=== PATIENT | female | born 1970 | race Two or more races ===

== ENCOUNTER 2020-03-09 16:56 | Emergency (ER) | payer MEDICAID, SELFPAY ==
--- NOTE | 2020-03-09 17:32 | XR_ITS ---
EXAMINATION: 1. RADIOGRAPHS LEFT SHOULDER 2. RADIOGRAPHS LEFT WRIST 3. RADIOGRAPHS RIGHT KNEE CLINICAL INFORMATION: Pain after fall COMPARISON: Left shoulder x-rays 07/05/2018 TECHNIQUE: 3 views of the left shoulder, 4 views of the left wrist and 4 views of the right knee were obtained. FINDINGS: Left shoulder: Visualized portion of the proximal left humerus demonstrate no fracture. Humeral head demonstrates good articulation with the glenoid fossa. Minimal hypertrophic changes of the left acromioclavicular joint. Left wrist: Visualized portion of the distal radius and ulna demonstrate no fracture. Carpal rows are well aligned. No carpal bone fracture. No focal soft tissue swelling of the left wrist. Visualized metacarpals demonstrate no fracture. Right knee: No fracture or dislocation of the right knee. Joint spaces are well-maintained. Ill-defined sclerotic density within the distal femur is nonspecific but most suggestive of a bone island. No suprapatellar joint effusion. Mild soft tissue swelling of the anterior knee. XR/XR knee RT 4V IMPRESSION: 1. Mild degenerative changes of the left shoulder without fracture or dislocation. 2. Unremarkable radiographs of the left wrist. 3. No fracture, dislocation or significant degenerative changes of the right knee.
--- NOTE | 2020-03-09 17:32 | XR_ITS ---
EXAMINATION: 1. RADIOGRAPHS LEFT SHOULDER 2. RADIOGRAPHS LEFT WRIST 3. RADIOGRAPHS RIGHT KNEE CLINICAL INFORMATION: Pain after fall COMPARISON: Left shoulder x-rays 07/05/2018 TECHNIQUE: 3 views of the left shoulder, 4 views of the left wrist and 4 views of the right knee were obtained. FINDINGS: Left shoulder: Visualized portion of the proximal left humerus demonstrate no fracture. Humeral head demonstrates good articulation with the glenoid fossa. Minimal hypertrophic changes of the left acromioclavicular joint. Left wrist: Visualized portion of the distal radius and ulna demonstrate no fracture. Carpal rows are well aligned. No carpal bone fracture. No focal soft tissue swelling of the left wrist. Visualized metacarpals demonstrate no fracture. Right knee: No fracture or dislocation of the right knee. Joint spaces are well-maintained. Ill-defined sclerotic density within the distal femur is nonspecific but most suggestive of a bone island. No suprapatellar joint effusion. Mild soft tissue swelling of the anterior knee. XR/XR shoulder LT min 2V IMPRESSION: 1. Mild degenerative changes of the left shoulder without fracture or dislocation. 2. Unremarkable radiographs of the left wrist. 3. No fracture, dislocation or significant degenerative changes of the right knee.
--- NOTE | 2020-03-09 17:32 | XR_ITS ---
EXAMINATION: 1. RADIOGRAPHS LEFT SHOULDER 2. RADIOGRAPHS LEFT WRIST 3. RADIOGRAPHS RIGHT KNEE CLINICAL INFORMATION: Pain after fall COMPARISON: Left shoulder x-rays 07/05/2018 TECHNIQUE: 3 views of the left shoulder, 4 views of the left wrist and 4 views of the right knee were obtained. FINDINGS: Left shoulder: Visualized portion of the proximal left humerus demonstrate no fracture. Humeral head demonstrates good articulation with the glenoid fossa. Minimal hypertrophic changes of the left acromioclavicular joint. Left wrist: Visualized portion of the distal radius and ulna demonstrate no fracture. Carpal rows are well aligned. No carpal bone fracture. No focal soft tissue swelling of the left wrist. Visualized metacarpals demonstrate no fracture. Right knee: No fracture or dislocation of the right knee. Joint spaces are well-maintained. Ill-defined sclerotic density within the distal femur is nonspecific but most suggestive of a bone island. No suprapatellar joint effusion. Mild soft tissue swelling of the anterior knee. XR/XR wrist LT min 3V IMPRESSION: 1. Mild degenerative changes of the left shoulder without fracture or dislocation. 2. Unremarkable radiographs of the left wrist. 3. No fracture, dislocation or significant degenerative changes of the right knee.
[2020-03-09 17:34] VITALS: BP 130/74; PULSE 95; RESP 18; TEMP 36.8; O2SAT 98; BMI 36.2
--- NOTE | 2020-03-09 17:46 | ED.FALL ---
HPI - Fall General Chief Complaint: Fall Stated Complaint: knee pain Time Seen by Provider: 03/09/20 17:10 Source: patient History of Present Illness HPI Narrative: 49-year-old female presenting to ED complaining of right knee, left shoulder, and left wrist pain s/p mechanical fall on Sunday night. Reports tripped going up the stairs, denies symptoms prior to fall including CP, lightheadedness/dizziness. Denies head strike or LOC. Has been ambulating with pain since incident. Denies numbness, tingling, weakness complaint: fall Related Data Allergies Allergy/AdvReac Type Severity Reaction Status Date / Time No Known Allergies Allergy Verified 03/09/20 17:33 [No Known Allergies*] Review of Systems Review of Systems: Constitutional: No Weight loss, No Fever, No Chills Cardiovascular: No Chest Pain, No SOB Respiratory: No Cough Musculoskeletal: + joint pain, No Myalgias, + Joint Swelling Skin: No Skin Lesions, No rash Neuro: No Weakness, No Numbness, No Paresthesias, no lightheadedness/dizziness Yes all other systems are reviewed and are negative FOR[facility]LY [facility] Past Medical History Attestation statement: The following information was validated with the patient. Surgical History (Updated 03/09/20 @ 17:36 by Munira Botello) History of cholecystectomy Social History Social History Advance Directives: No Advance Directives Information Provided: Yes Physical Exam Vital Signs: Vital Signs: Vital Signs Temp Pulse Resp BP Pulse Ox 03/09/20 17:34 98.2 F 95 18 130/74 98 Body Mass Index 36.2 Const: General: cooperative and healthy appearing Orientation/consciousness: patient oriented x3 Limitations: no limitations HENMT: Head: Yes normal to inspection Ears: hearing grossly normal bilaterally General nose exam: Normal external nose present Face and sinus: Yes normal facial exam Eyes: General: appearance normal, both eyes and all related structures EOM: EOMs intact bilaterally Neck: Neck: Yes normal visual inspection Resp: Effort & Inspection: normal respiratory effort Cardio: Peripheral pulses: Peripheral pulses 2+ throughout Skin: Rashes: no rashes Wounds: no wounds Neuro: General: patient oriented x3 Gait exam (Neuro): Normal gait present Extrem: Other: + right knee with swelling and ecchymosis. +ttp. FROM/NV intact + left shoulder & left wrist with ttp. No snuffbox tenderness. Mild swelling to dorsal aspect of wrist. FROM/NV intact Course Course Course Narrative: --1800--ED care transfer to EEG TECHNOLOGIST [facility] pending imaging results Discharge Plan Discharge Clinical Impression: Left wrist pain Fall Qualifiers: Encounter type: initial encounter Qualified Code(s): W19.XXXA - Unspecified fall, initial encounter Knee pain Qualifiers: Chronicity: acute Laterality: right Qualified Code(s): M25.561 - Pain in right knee Acute shoulder pain Qualifiers: Laterality: left Qualified Code(s): M25.512 - Pain in left shoulder Patient Disposition: Home, Self-Care
== END 2020-03-09 19:20 | disposition home or self-care (01) ==
LOC: HO.ED 17:56
PROVIDERS: Emergency Provider Internal Medicine
DX: S69.92XA Unspecified injury of left wrist, hand and finger(s), initial encounter (principal); M25.562 Pain in left knee; M25.561 Pain in right knee; M25.512 Pain in left shoulder; W01.0XXA Fall on same level from slipping, tripping and stumbling without subsequent striking against object, initial encounter; Y93.9 Activity, unspecified; Y92.9 Unspecified place or not applicable; Y99.9 Unspecified external cause status
CPT/HCPCS: 73030; 73110; 73564; 99283

== ENCOUNTER → 2020-08-10 10:50 | Outpatient (REF) | payer MEDICAID, SELFPAY ==
--- NOTE | 2020-08-10 11:00 | CA_ITS ---
Acquisition Time: 2020-08-10 11:02:42 Total Exercise Time: 00:06:23 Test Indications: ABN EKG Medications: SEE CHART Protocol: KAVEH Max HR: 173 BPM 101% of Pred: 170 BPM Max BP: 130/080 mmHG Max Work Load: 7.5 METS Exercise stress ECHO using Kaveh protocol, total og 6 min 23 sec. METS 7.50 and TAPHR up to 101%. Pt denies any anginal sx. EKG without arrhythmias, no ischemic changes seen during exercise or in recovery. ECHO images taken at rest and immediately after peak exercise heart rate acheaved. Definity contrast used. Normotensive response to exercise. Test reviewed with Dr. Douglass. Exercise stress echocardiogram reviewed. At rest, there is normal LVEF and wall motion. With peak exercise, there is appropriate augmentation of wall thickening and contractility. There is normal decrease in end-systolic volumes. Overall, this is a normal study. Referred By: Marti Childs Overread By: ELZBIETA DOUGLASS
== END ==
LOC: HO.CARD 10:50
PROVIDERS: Visit Provider Internal Medicine Cardiovascular Disease
DX: R07.89 Other chest pain (principal)
CPT/HCPCS: 93350; Q9957

== ENCOUNTER 2020-11-11 14:23 | Outpatient (REF) | payer MEDICAID, SELFPAY ==
--- NOTE | ~2020-11-11 | MR_ITS ---
MRI OF THE BRAIN WITHOUT IV CONTRAST INDICATION: Worsening headaches waking up from sleep. COMPARISON: None available. TECHNIQUE: Multiplanar multisequence MR imaging of the brain was obtained without IV contrast. FINDINGS: There is no hydrocephalus, extra-axial surface collection, or herniation. There are mild T2 signal within the supratentorial white matter that are nonspecific. The major flow voids at the skull base are preserved. There is no acute infarct on diffusion-weighted imaging. There is no intracranial hemorrhage on the gradient recalled echo acquisition. There is a partially empty sella and there is a right petrous apex cephalocele, findings that can be correlated for clinical signs of intracranial CSF hypertension/pseudotumor cerebri. The cerebellar tonsils are normally positioned. The cerebellum and brainstem are normal. The craniocervical junction is normal. Osseous marrow signal intensity is homogenous. The visualized soft tissues are unremarkable. MR/MR head/brain wo con IMPRESSION: - Nodular prominence of the anterior communicating artery flow void that may reflect volume averaging with the subjacent sphenoid sinus versus an aneurysm that can be further assessed with a MRA of the head. - There is a partially empty sella and there is a right petrous apex cephalocele, findings that can be correlated for clinical signs of intracranial CSF hypertension/pseudotumor cerebri. - There are mild T2 signal within the supratentorial white matter that are nonspecific.
== END 2020-11-11 14:24 | disposition home or self-care (01) ==
LOC: HO.MRI 14:23
PROVIDERS: Visit Provider Internal Medicine
DX: R51.9 Headache, unspecified (principal)
CPT/HCPCS: 70551

== ENCOUNTER 2020-11-25 10:18 | Outpatient (REF) | payer MEDICAID, SELFPAY ==
--- NOTE | ~2020-11-25 | MR_ITS ---
EXAMINATION: MR ANGIOGRAPHY BRAIN WITHOUT CONTRAST CLINICAL INFORMATION: Followup to previous MRI for question of artifact versus ACOM aneurysm. COMPARISON: 11/11/2020 MRI TECHNIQUE: 3-D [id number] MR angiography of the intracranial circulation was done with multiplanar reformatted reconstructions. FINDINGS: The anterior communicating artery is visualized. There is a 1 mm outpouching of flow-related enhancement at the lateral margin of the junction of the right A1 and A2 segments suggesting a tiny aneurysm. Otherwise the A1 and A2 segments are normal in caliber with a normal caliber to the anterior communicating artery. The intracranial internal carotid arteries are normal in caliber and smoothly contoured. The M1 segments and M2 branches are patent and normal in caliber bilaterally with normal arborization of the M2 branches. The intradural vertebral arteries are patent and normal in caliber. Right PICA is visualized and appears normal. A left ICA PICA is visualized and appears normal. Both superior cerebellar arteries and posterior cerebral arteries are normal in caliber and smoothly contoured. No other aneurysms are identified, and there are no high-flow vascular malformations. 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 No other aneurysms are identified, and the remainder of the study is within normal limits.
== END 2020-11-25 10:19 | disposition home or self-care (01) ==
LOC: HO.MRI 10:18
PROVIDERS: Visit Provider Internal Medicine
DX: I67.1 Cerebral aneurysm, nonruptured (principal)
CPT/HCPCS: 70544

== ENCOUNTER 2020-11-30 16:48 | Outpatient (REF) | payer MEDICAID, SELFPAY ==
--- NOTE | ~2020-11-30 | US_ITS ---
EXAMINATION: US VENOUS ULTRASOUND WITH DOPPLER LOWER EXTREMITY, RIGHT CLINICAL INFORMATION: Right lower extremity swelling COMPARISON: None TECHNIQUE: Ultrasound of the deep veins is performed from the hip to the calf with compression sonography and color and pulse Doppler assessment. Spectral analysis with color-flow imaging is performed. FINDINGS: There is normal venous compression and respiratory variation and augmented flow. The visualized common femoral vein, superficial femoral vein, profunda femoral vein, popliteal vein, and the trifurcation region shows no evidence of deep venous thrombosis. There is no significant popliteal fossa cyst. If the patient's symptoms persist, followup ultrasound in 5 days 7 days might be of value to exclude proximal propagation from a non-visualized calf vein. US/US venous duplex LE RT IMPRESSION: No DVT demonstrated in the right lower extremity.
== END 2020-11-30 16:49 | disposition home or self-care (01) ==
LOC: HO.US 16:48
PROVIDERS: PCP Internal Medicine; Visit Provider Internal Medicine
DX: M79.89 Other specified soft tissue disorders (principal)
CPT/HCPCS: 93971

== ENCOUNTER 2021-01-20 09:16 | Day surgery (SDC) | payer MEDICAID, SELFPAY ==
[2021-01-20] VITALS (7 sets, daily range): BP systolic 115–136; BP diastolic 51–67; PULSE 50–60; RESP 16–18; TEMP 36.2–36.4; O2SAT 97–99; BMI 33.9
--- NOTE | ~2021-01-20 | FL_ITS ---
EXAMINATION: XR LUMBAR PUNCTURE CLINICAL INFORMATION: Chronic daily headache COMPARISON: None TECHNIQUE and FINDINGS: Procedure and risks and benefits including bleeding, infection and headache were discussed with the patient and informed consent was obtained. Patient was positioned in the prone position. The back was prepped and draped in usual sterile fashion. Using fluoroscopic guidance and a 22-gauge spinal needle, left-sided interlaminar access to the spinal canal at L3-L4 is obtained. Opening pressure was 15.5 cm of water. 8 mL of clear CSF fluid was removed. Diagnostic specimen was sent as requested by the ordering physician. FLUOROSCOPY TIME: 0.2 min DOSE AREA PRODUCT: 0.9 romero per centimeter squared. Total dose 11 mGy. 1 saved fluoroscopic image. FL/FL guided lumbar puncture LP IMPRESSION: Fluoroscopy-guided lumbar puncture.
[2021-01-20 10:04] LABS: MANUAL DIFF FLAG NO
[2021-01-20 10:09] LABS: Basophils Percent Auto 0.5 % (0-2); Eosinophils Absolute Auto 0.2 X10*3/uL (0.0-0.4); Eosinophils Percent Auto 1.9 % (0-4); Hematocrit 39.9 % (37-47); Hemoglobin 12.9 g/dl (12.0-16.0); Imm Gran Abs Auto 0.03 X10*3/uL (0.00-0.03); Imm Gran Pct Auto 0.4 % (0.0-0.4); Lymphocytes Absolute Auto 2.4 X10*3/uL (1.2-4.9); Lymphocytes Percent Auto 30.7 % (20-40); Mean Corpuscular HGB Conc 32.3 g/dl (31.0-35.0); Mean Corpuscular Volume 83.5 fL (80-98); Mean Platelet Volume 11.3 fL (9.4-12.3); Monocytes Absolute Auto 0.5 X10*3/uL (0.1-1.2); Monocytes Percent Auto 5.9 % (2-11); Neutrophils Absolute Auto 4.7 X10*3/uL (2.0-8.3); Neutrophils Percent Auto 60.6 % (45-73); Platelet Count 206 X10*3/uL (160-400); Red Blood Count 4.78 X10*6/uL (4.20-5.50); Red Cell Distribution Width 13.2 % (11.0-16.0); White Blood Count 7.8 X10*3/uL (4.8-10.8)
[2021-01-20 10:15] LABS: INTERNATIONAL NORM RATIO 1.1 (0.9-1.1)
[2021-01-20 10:18] LABS: Partial Thromboplastin Time 42.9 SEC (24.1-38.0)
--- NOTE | 2021-01-20 12:34 | HO.RADPN ---
RADIOLOGY Narrative Narrative: LP performed using 22g spinal needle at L3/L4. Opening pressure 15.5 cm h2o. 8 ml clear CSF removed
[2021-01-20 12:41] LABS: CSF Appearance Clear, Colorless; CSF Tube # 1
[2021-01-20 12:55] LABS: Glucose CSF 57 mg/dL; Total Protein CSF 18.4 mg/dL (15-45)
[2021-01-20 13:37] LABS: Appearance CSF CLEAR; CSF Tube # 4; Color CSF COLORLESS; Lymphocytes CSF 100 %; Red Blood Cell CSF 1 MM*3; White Blood Cell CSF 1 MM*3
== END 2021-01-20 14:09 | disposition home or self-care (01) ==
PROVIDERS: Psychiatry & Neurology Neurology; PCP Internal Medicine; Visit Provider Radiology Diagnostic Radiology
PROC: 009U3ZZ Drainage of Spinal Canal, Percutaneous Approach (ICD-10-PCS; CPT 62270; principal; 2021-01-20 11:00)
DX: R51.9 Headache, unspecified (principal); Z79.899 Other long term (current) drug therapy
CPT/HCPCS: 36415; 62328; 82945; 84157; 85025; 85610; 85730; 87015; 87070; 87205; 89051

== ENCOUNTER 2021-06-30 11:12 | Outpatient (REF) | payer MEDICAID, SELFPAY ==
--- NOTE | ~2021-06-30 | XR_ITS ---
EXAMINATION: XR KNEE, LEFT CLINICAL INFORMATION: Left knee pain COMPARISON: None TECHNIQUE: Four views of the left knee. FINDINGS: Bones have normal alignment. No fracture, subluxation or joint effusion. Small osteophytes at patellofemoral and tibial femoral compartments. There is joint space narrowing and mild subarticular sclerosis at the medial tibiofemoral compartment. No suspicious osseous lesion. XR/XR knee LT 4V IMPRESSION: Tricompartmental osteoarthritis of the left knee. The joint degeneration is mild at the patellofemoral and lateral tibiofemoral compartments and [id number] at the medial tibiofemoral compartment.
== END 2021-06-30 11:13 | disposition home or self-care (01) ==
LOC: HO.XRAY 11:12
PROVIDERS: PCP Internal Medicine; Visit Provider Internal Medicine
DX: M25.562 Pain in left knee (principal)
CPT/HCPCS: 73564

== ENCOUNTER 2021-08-03 09:49 | Outpatient (REF) | payer MEDICAID, SELFPAY ==
--- NOTE | ~2021-08-03 | US_ITS ---
EXAMINATION: NONINVASIVE ASSESSMENT OF THE ARTERIES OF BOTH LOWER EXTREMITIES WITH PVR EXAM AND LEFT LOWER EXTREMITY DUPLEX CLINICAL INFORMATION: Peripheral vascular disease. TECHNIQUE: Ankle pulse volume recordings, ankle pressure measurements and ankle-brachial indices were obtained of the lower extremity arterial system bilaterally. Additionally, duplex Doppler techniques were used with wave form analysis and measurement of velocities in the common femoral, profunda femoral, superficial femoral, popliteal and tibial arteries on the left. The study was performed only at rest. COMPARISON: None FINDINGS: ANKLE-BRACHIAL INDEX: Right: 1.48 Left: 1.37. PVR WAVEFORM: Right: normal. Left: normal. DIRECT DUPLEX DOPPLER FINDINGS: LEFT LEG: Common femoral artery: 174 cm/s, diastolic flow reversal: Yes. Profunda femoris artery: 101 cm/s, diastolic flow reversal: Yes. Superficial femoral artery (proximal): 142 cm/s, diastolic flow reversal: Yes. Superficial femoral artery (mid): 141 cm/s, diastolic flow reversal: Yes. Superficial femoral artery (distal): 119 cm/s, diastolic flow reversal: Yes. Popliteal artery: 87 cm/s, diastolic flow reversal: Yes. Posterior tibial artery: 115 cm/s, diastolic flow reversal: Yes. Peroneal artery: 28.7 cm/s, diastolic flow reversal: Yes. Atherosclerotic plaque is present throughout the left lower extremity vasculature. US/US arterial duplex LE IMPRESSION: Right leg: BRUCE 1.48. Elevated BRUCE suggests vessel noncompressibility. Left leg: BRUCE 1.37, likely elevated due to vessel noncompressibility, however, no hemodynamically significant lesions identified on the left lower extremity duplex. BRUCE Reference: - >0.97-1.25 = normal - no significant arterial disease. - 0.75-0.96 = mild peripheral arterial disease. - 0.5-0.74 = moderate peripheral arterial disease. - <0.50 = severe peripheral arterial disease.
--- NOTE | ~2021-08-03 | US_ITS ---
EXAMINATION: NONINVASIVE ASSESSMENT OF THE ARTERIES OF BOTH LOWER EXTREMITIES WITH PVR EXAM AND LEFT LOWER EXTREMITY DUPLEX CLINICAL INFORMATION: Peripheral vascular disease. TECHNIQUE: Ankle pulse volume recordings, ankle pressure measurements and ankle-brachial indices were obtained of the lower extremity arterial system bilaterally. Additionally, duplex Doppler techniques were used with wave form analysis and measurement of velocities in the common femoral, profunda femoral, superficial femoral, popliteal and tibial arteries on the left. The study was performed only at rest. COMPARISON: None FINDINGS: ANKLE-BRACHIAL INDEX: Right: 1.48 Left: 1.37. PVR WAVEFORM: Right: normal. Left: normal. DIRECT DUPLEX DOPPLER FINDINGS: LEFT LEG: Common femoral artery: 174 cm/s, diastolic flow reversal: Yes. Profunda femoris artery: 101 cm/s, diastolic flow reversal: Yes. Superficial femoral artery (proximal): 142 cm/s, diastolic flow reversal: Yes. Superficial femoral artery (mid): 141 cm/s, diastolic flow reversal: Yes. Superficial femoral artery (distal): 119 cm/s, diastolic flow reversal: Yes. Popliteal artery: 87 cm/s, diastolic flow reversal: Yes. Posterior tibial artery: 115 cm/s, diastolic flow reversal: Yes. Peroneal artery: 28.7 cm/s, diastolic flow reversal: Yes. Atherosclerotic plaque is present throughout the left lower extremity vasculature. US/US BRUCE complete IMPRESSION: Right leg: BRUCE 1.48. Elevated BRUCE suggests vessel noncompressibility. Left leg: BRUCE 1.37, likely elevated due to vessel noncompressibility, however, no hemodynamically significant lesions identified on the left lower extremity duplex. BRUCE Reference: - >0.97-1.25 = normal - no significant arterial disease. - 0.75-0.96 = mild peripheral arterial disease. - 0.5-0.74 = moderate peripheral arterial disease. - <0.50 = severe peripheral arterial disease.
== END 2021-08-03 09:50 | disposition home or self-care (01) ==
LOC: HO.US 09:49
PROVIDERS: PCP Internal Medicine; Visit Provider Internal Medicine
DX: I73.9 Peripheral vascular disease, unspecified (principal)
CPT/HCPCS: 93923; 93926

== ENCOUNTER → 2021-08-05 10:53 | Outpatient (BNVA) | payer MEDICAID, SELFPAY | PROVIDERS: PCP Internal Medicine; Visit Provider Physician Assistant | DX: M17.12 Unilateral primary osteoarthritis, left knee (principal) | CPT/HCPCS: 20610; 99202; J1040 ==

== ENCOUNTER 2021-08-11 08:47 | Outpatient (REF) | payer MEDICAID, SELFPAY ==
--- NOTE | 2021-08-11 08:51 | EMG_ITS ---
Left median and ulnar motor and sensory studies were performed. Left radial sensory study was performed and paraspinal muscles were tested with a needle. IMPRESSION: Mild left median neuropathy across carpal tunnel. MD BHUPENDRA Gonzalez/STEPHEN / [phone]
== END 2021-08-11 08:48 | disposition home or self-care (01) ==
LOC: HO.NEURO 08:47
PROVIDERS: Visit Provider Internal Medicine
DX: R20.0 Anesthesia of skin (principal)
CPT/HCPCS: 95886; 95909; 95911

== ENCOUNTER → 2021-11-04 09:37 | Outpatient (BNVA) | payer MEDICAID, SELFPAY | PROVIDERS: PCP Internal Medicine; Visit Provider Physician Assistant | DX: M17.12 Unilateral primary osteoarthritis, left knee (principal) | CPT/HCPCS: 99212 ==

== ENCOUNTER 2021-12-06 13:56 | Outpatient (REF) | payer MEDICAID, SELFPAY ==
--- NOTE | ~2021-12-06 | XR_ITS ---
EXAMINATION: XR FOOT, RIGHT CLINICAL INFORMATION: Right foot pain COMPARISON: None TECHNIQUE: AP, lateral, and oblique views of the right foot. FINDINGS: No fracture or dislocation. Alignment is anatomic. Joint spaces are maintained. Small subchondral cyst at the first interphalangeal joint. Incidental note of an accessory navicular. There is mild hypertrophic spurring of the plantar aponeurosis and Achilles insertion to the calcaneus. XR/XR foot RT min 3V IMPRESSION: Small heel spurs. Minimal degenerative change at the first interphalangeal joint.
== END 2021-12-06 13:57 | disposition home or self-care (01) ==
LOC: HO.XRAY 13:56
PROVIDERS: PCP Internal Medicine; Visit Provider Internal Medicine
DX: M79.671 Pain in right foot (principal)
CPT/HCPCS: 73630

== ENCOUNTER → 2021-12-13 13:04 | Outpatient (BNVA) | payer MEDICAID, SELFPAY | PROVIDERS: PCP Internal Medicine; Visit Provider Surgery Vascular Surgery | DX: I83.11 Varicose veins of right lower extremity with inflammation (principal) | CPT/HCPCS: 99202 ==

== ENCOUNTER 2022-02-14 10:21 | Outpatient (REF) | payer MEDICAID, SELFPAY ==
--- NOTE | ~2022-02-14 | US_ITS ---
EXAMINATION: US LOWER EXTREMITY VENOUS (REFLUX EXAM), BILATERAL CLINICAL INDICATION: Chronic venous insufficiency with lower extremity varicose veins COMPARISON: None. TECHNIQUE: Color flow triplex imaging and compression Doppler was performed to evaluate both the deep and the superficial systems bilaterally. To evaluate the superficial system, the examination was performed in the upright position. Color-flow Doppler ultrasound and compression ultrasound were utilized. In addition, maneuvers were utilized to demonstrate reflux. FINDINGS: 1. DEEP VENOUS ULTRASOUND OF THE RIGHT LOWER EXTREMITY: Common Femoral Vein: Compressible, normal respiratory variation and augmented flow. Femoral Vein: Compressible, normal color flow and augmentation. Popliteal Vein: Compressible, normal augmentation. Deep Reflux: There is no evidence of reflux in the deep system in either the common femoral vein or the popliteal vein. There is no evidence of a Jara's cyst. 2. SUPERFICIAL ULTRASOUND WITH DOPPLER OF RIGHT LOWER EXTREMITY: GREAT SAPHENOUS VEIN: Saphenofemoral Junction: 0.6 cm; Reflux: 0 ms Proximal Thigh: 0.4 cm; Reflux: 0 ms Mid Thigh: 0.3 cm; Reflux: 0 ms Above Knee: 0.2 cm; Reflux: 0 ms At Knee: 0.2 cm; Reflux: 0 ms Below Knee: 0.4 cm; Reflux: 3340 ms Mid Calf: 0.2 cm; Reflux: 3292 ms Ankle: 0.2 cm; Reflux: 0 ms DUPLICATED MEDIAL GREAT SAPHENOUS VEIN: Diameter: None Imaged Reflux: NA DUPLICATED LATERAL GREAT SAPHENOUS VEIN: Diameter: 0.3 cm Reflux: None SMALL SAPHENOUS VEIN: Proximal: 0.8 cm; Reflux: 2032 ms Distal: 0.3 cm; Reflux: 0 ms VEIN OF GIACOMINI: None Imaged. PERFORATORS: Location: Distal calf to the small saphenous vein Size: 0.6 cm Reflux: None VARICOSITIES: Location: Posterior calf off the small saphenous vein and throughout the medial calf off the great saphenous vein Size: 0.3 to 0.4 cm Reflux: Ranging from 3216 - 3348 ms 3. DEEP VENOUS ULTRASOUND OF THE LEFT LOWER EXTREMITY: Common Femoral Vein: Compressible, normal respiratory variation and augmented flow. Femoral Vein: Compressible, normal color flow and augmentation. Popliteal Vein: Compressible, normal augmentation. Deep Reflux: There is no evidence of reflux in the deep system in either the common femoral vein or the popliteal vein. There is no evidence of a Jara's cyst. 4. SUPERFICIAL ULTRASOUND WITH DOPPLER OF LEFT LOWER EXTREMITY: GREAT SAPHENOUS VEIN: Saphenofemoral Junction: 0.8 cm; Reflux: 0 ms Proximal Thigh: 0.3 cm; Reflux: 0 ms Mid Thigh: 0.3 cm; Reflux: 0 ms Above Knee: 0.2 cm; Reflux: 0 ms At Knee: 0.4 cm; Reflux: 3244 ms Below Knee: 0.2 cm; Reflux: 3320 ms Mid Calf: 0.2 cm; Reflux: 0 ms Ankle: 0.1 cm; Reflux: 0 ms DUPLICATED MEDIAL GREAT SAPHENOUS VEIN: Diameter: None Imaged Reflux: NA DUPLICATED LATERAL GREAT SAPHENOUS VEIN: Diameter: 0.3 cm Reflux: 1764 ms SMALL SAPHENOUS VEIN: Proximal: 0.3 cm; Reflux: 0 ms Distal: 0.2 cm; Reflux: 0 ms VEIN OF GIACOMINI: None Imaged. PERFORATORS: Location: None significant Size: NA Reflux: NA VARICOSITIES: Location: Medial mid thigh, knee and medial calf Size: 0.3 cm Reflux: None US/US venous duplex LE BI IMPRESSION: Right: Reflux in the below-knee great saphenous vein and small saphenous vein with multiple branching varicosities Left: Reflux in the great saphenous vein at and below the knee and left lateral duplicated great saphenous vein in the thigh with multiple branching varicosities
== END 2022-02-14 10:22 | disposition home or self-care (01) ==
LOC: HO.US 10:21
PROVIDERS: Visit Provider Surgery Vascular Surgery
DX: I83.11 Varicose veins of right lower extremity with inflammation (principal)
CPT/HCPCS: 93970

== ENCOUNTER 2022-03-14 13:58 | Outpatient (REF) | payer MEDICAID, SELFPAY ==
--- NOTE | ~2022-03-14 | US_ITS ---
EXAMINATION: US PELVIS CLINICAL INFORMATION: Postmenopausal bleeding. COMPARISON: None TECHNIQUE: Ultrasound of the pelvis is performed using both transabdominal and transvaginal transducers along with Doppler. Transvaginal imaging is performed due to inadequate visualization transabdominally. FINDINGS: Uterus: The uterus is anteverted and measures 7.8 cm in length, 4.1 mL in AP and 4.6 cm in transverse dimension. The uterus is heterogeneous. The double wall endometrial thickness is 1.3 cm. The uterus is smooth in contour and has normal myometrial echogenicity. There is a solitary hypoechoic lesion in the anterior body of uterus measuring 0.9 x 0.9 x 1.1 cm. Previously it measured 1.1 x 1.1 x 1.2 cm. Small nabothian cysts seen in the center cervix Adnexa: Both ovaries are difficult to visualize due to overlying bowel. There is normal color flow to the adnexa. There is no ovarian torsion. There is no pelvic ascites or fluid collection. Right ovary measures 1.7 x 2.1 x 1.6 cm and volume 3.0 mL. The ovaries unremarkable. Previously right ovary measured 2.2 x 2.0 x 2.1 cm and volume 4.8 mL. Left ovary measures 1.6 x 1.1 x 0.8 cm and volume 0.7 mL. No focal lesion seen. Previously it measured 1.6 x 1.3 x 1.8 cm and volume 2.0 mL. US/US pelvic and transvaginal IMPRESSION: Heterogeneous uterus with small fibroid with volume of 3.0 mL. Small nabothian cysts in the cervix.
== END 2022-03-14 13:59 | disposition home or self-care (01) ==
LOC: HO.US 13:58
PROVIDERS: Visit Provider Advanced Practice Midwife
DX: N95.0 Postmenopausal bleeding (principal)
CPT/HCPCS: 76830; 76856

== ENCOUNTER → 2022-03-21 11:06 | Outpatient (BNVA) | payer MEDICAID, SELFPAY | PROVIDERS: Visit Provider Surgery Vascular Surgery | DX: I83.11 Varicose veins of right lower extremity with inflammation (principal) | CPT/HCPCS: 99212 ==

== ENCOUNTER → 2022-04-14 07:21 | Outpatient (BNVA) | payer MEDICAID, SELFPAY | PROVIDERS: Visit Provider Surgery Vascular Surgery | DX: I83.11 Varicose veins of right lower extremity with inflammation (principal) | CPT/HCPCS: 36475 ==

== ENCOUNTER 2022-04-17 15:12 | Outpatient (REF) | payer MEDICAID, SELFPAY ==
--- NOTE | ~2022-04-17 | US_ITS ---
EXAMINATION: TRIPLEX SCANNING OF RIGHT LOWER EXTREMITY; SUPERFICIAL ULTRASOUND WITH DOPPLER OF RIGHT LOWER EXTREMITY CLINICAL INFORMATION: Status post radiofrequency ablation of a 4 cm segment of the right great saphenous vein Ambulatory phlebectomy performed: No COMPARISON: Bilateral lower extremity venous duplex on 02/14/2022. TECHNIQUE: Color flow triplex imaging and compression Doppler were performed as well as superficial ultrasound with Doppler. FINDINGS: RIGHT LOWER EXTREMITY DEEP VENOUS SYSTEM: Respiratory variation, normal compression and augmented flow are noted throughout the lower extremity. The visualized common femoral vein, femoral vein, profunda femoral vein, popliteal vein and the calf veins show no evidence of deep venous thrombosis. There is no evidence of Jara's cyst. SUPERFICIAL VENOUS SYSTEM: The great saphenous vein is occluded from the access site to just before the saphenofemoral junction. There is no extension of thrombus into the deep system. US/US venous duplex LE RT IMPRESSION: 1. No evidence of DVT. 2. Excellent appearance status post ablation of the right great saphenous vein.
== END 2022-04-17 15:13 | disposition home or self-care (01) ==
LOC: HO.HMGCX 15:12
PROVIDERS: PCP Internal Medicine; Visit Provider Surgery Vascular Surgery
DX: M79.604 Pain in right leg (principal)
CPT/HCPCS: 93971

== ENCOUNTER → 2022-04-27 13:10 | Outpatient (BNVA) | payer MEDICAID, SELFPAY | PROVIDERS: PCP Internal Medicine; Visit Provider Surgery Vascular Surgery | DX: I83.11 Varicose veins of right lower extremity with inflammation (principal); Z98.890 Other specified postprocedural states | CPT/HCPCS: 99212 ==

== ENCOUNTER 2022-06-14 11:37 | Outpatient (REF) | payer MEDICAID, SELFPAY ==
[2022-06-14 16:43] LABS: CT PCR NOT DETECTED (Not Detect.); NG PCR NOT DETECTED (Not Detect.)
[2022-06-17 07:33] LABS: HPV mRNA E6/E7 rflx Not Detected (Not Detected)
== END 2022-06-14 11:38 | disposition home or self-care (01) ==
LOC: HO.LNP 11:37
PROVIDERS: PCP Internal Medicine; Visit Provider Obstetrics & Gynecology
DX: N95.0 Postmenopausal bleeding (principal); N72 Inflammatory disease of cervix uteri; D21.9 Benign neoplasm of connective and other soft tissue, unspecified
CPT/HCPCS: 0353U; 57500; 58100; 87624; 88142; 88305; 99202

== ENCOUNTER → 2022-06-28 10:55 | Outpatient (BNVA) | payer MEDICAID, SELFPAY | PROVIDERS: PCP Internal Medicine; Visit Provider Obstetrics & Gynecology | DX: N87.0 Mild cervical dysplasia (principal); Z98.890 Other specified postprocedural states | CPT/HCPCS: 99212 ==

== ENCOUNTER → 2022-09-26 12:59 | Outpatient (BNVA) | payer MEDICAID, SELFPAY | PROVIDERS: PCP Registered Nurse; Visit Provider Surgery Vascular Surgery | DX: I83.11 Varicose veins of right lower extremity with inflammation (principal); M17.12 Unilateral primary osteoarthritis, left knee | CPT/HCPCS: 99212 ==

== ENCOUNTER 2022-10-15 18:44 | Emergency (ER) | payer MEDICAID, SELFPAY ==
--- NOTE | ~2022-10-15 | XR_ITS ---
EXAMINATION: XR SHOULDER, LEFT CLINICAL INFORMATION: Left shoulder pain COMPARISON: 03/09/2020 TECHNIQUE: Three views of the left shoulder. FINDINGS: The bones and soft tissues are normal. No fracture. Glenohumeral and acromioclavicular alignment is anatomic with normal joint space. No abnormal soft tissue calcifications. XR/XR shoulder LT min 2V IMPRESSION: Normal left shoulder.
[2022-10-15 19:21] VITALS: BP 172/84; PULSE 65; RESP 18; TEMP 36.3; O2SAT 98; BMI 36.4
--- NOTE | 2022-10-15 19:24 | ECG_ITS ---
Test Reason : ARM PAIN/CP Blood Pressure : / mmHG Vent. Rate : 066 BPM Atrial Rate : 066 BPM P-R Int : 160 ms QRS Dur : 078 ms QT Int : 376 ms P-R-T Axes : 046 -10 050 degrees QTc Int : 394 ms Normal sinus rhythm Minimal voltage criteria for LVH, may be normal variant ( R in aVL ) Nonspecific T wave abnormality Abnormal ECG When compared with ECG of 05-JUL-2018 10:54, Nonspecific T wave abnormality, worse in Anterolateral leads Referred By: Shyam Thorne Electronically Signed By:Benson De Santiago
--- NOTE | 2022-10-15 19:25 | ED_ITS ---
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 Patient went to her doctor 2 weeks ago and was told she has high blood pressure was not put any medications. She woke up this morning with a dull, left-sided headache and left shoulder pain Denies any injury Denies any cough or shortness of breath, palpitations Denies any fevers or chills Her pain is a 6/10 and worse with movement No other complaints or concerns at this time Related Data Previous Rx's Medication Instructions Recorded medroxyprogesterone 10 mg tablet 10 mg PO DAILY 90 days #90 tabs 06/28/22 (Provera) amlodipine 5 mg tablet 5 mg PO DAILY #30 tabs 10/16/22 cyclobenzaprine 10 mg tablet 10 mg PO TID PRN muscle spasm #15 10/16/22 tabs Allergies Allergy/AdvReac Type Severity Reaction Status Date / Time No Known Allergies Allergy Verified 10/15/22 19:20 [No Known Allergies*] Review of Systems Constitutional: Constitutional: Reports as per HPI, Denies chills, Denies fatigue and Denies fever(s) Cardiovascular: Cardiovascular: Denies chest pain and Denies dyspnea Respiratory: Respiratory: Denies cough and Denies dyspnea Gastrointestinal: Gastrointestinal: Denies abdominal pain, Denies constipation and Denies vomiting Genitourinary: Genitourinary: Denies dysuria Musculoskeletal: Musculoskeletal: Reports arthralgias and Reports limited range of motion Neurologic: Denies focal weakness Endocrine: Endocrine: Denies fatigue [facility] Past Medical History Medical History Brain aneurysm Surgical History History of History of cholecystectomy Family History Family History Maternal Aunt Breast CA Social History Social History Smoked in Last 30 Days: No Use of substances other than those prescribed or required for medical reasons: No Advance Directives: No Advance Directives Information Provided: No Current occupational status: employed 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 Physical Exam ED Vital Signs: Vital Signs - 24 hr 10/15/22 19:21 10/16/22 00:20 Temperature 97.4 F Pulse Rate 65 71 Respiratory Rate 18 18 Blood Pressure 172/84 H 140/77 H Pulse Oximetry 98 98 Oxygen Delivery Method Room Air Room Air BMI result Body Mass Index 36.4 Const General: healthy appearing, comfortable, no acute distress, alert and awake Nutritional Appearance: well nourished Orientation/consciousness: patient oriented x3 HENMT Head: Yes normocephalic and Yes atraumatic Eyes Eyelids: Yes eyelids normal Conjunctivae: conjunctivae normal Sclerae: sclerae normal Corneas: corneas normal Pupils: Equal, round and reactive pupils present EOM: EOMs intact bilaterally Neck Neck: Yes full ROM Resp Effort & Inspection: normal respiratory effort, able to speak in complete sentences, no audible wheezes and not labored Auscultation: clear to auscultation bilaterally Cardio Rate: regular rate Rhythm: regular rhythm GI Inspection: No distended Palpation (GI): Soft to palpation, not firm, no guarding and not rigid Skin General skin exam: no rashes or lesions noted and elasticity normal Neuro General: patient oriented x3 Cranial nerves: Yes CN's II-XII intact bilaterally, Yes Equal, round and reactive pupils present and Yes Bilaterally intact EOM present Cognition (Neuro): normal cognition Extrem Other: Moving all extremities well without any obvious deformities. Patient is tender to the left anterior shoulder and left trapezius muscle group. No deformities Course Course Course Narrative: RME: 52 yold female presents to the ED for left shoulder pain since this morning and hurt on movement. has pmh of hTN, but not on meds. EKG, labs, troponin, and shoulder xray Medical Decision Making Medical Decision Making MDM Narrative: 52-year-old female presents for evaluation of left shoulder pain. Denies chest pain. She had a cardiac workup that was negative, troponin negative. EKG nonischemic. She complains of left-sided headache is mild. Her neuro exam is reassuring. The patient's left shoulder pain is likely musculoskeletal in origin. Will treat with cyclobenzaprine. The patient will also be given amlodipine for her high blood pressure. Asked her to call her doctor tomorrow to inform her that she is starting a new antihypertensive medication Differential Diagnosis Differential Diagnoses: The differential diagnosis associated with the presentation includes Headache Shoulder pain Arthritis Muscle strain Arthritis High blood pressure Lab Data MDM Lab Attestation statement: I reviewed the patient's lab results. 10/15/22 19:51 10/15/22 19:51 Labs: Lab Results 10/15/22 10/15/22 10/15/22 Range/Units 19:51 19:51 19:51 WBC 8.7 (4.8-10.8) X10*3/uL RBC 5.02 (4.20-5.50) X10*6/uL Hgb 13.4 (12.0-16.0) g/dl Hct 41.8 (37.0-47.0) % MCV 83.3 (80.0-98.0) fL MCH 26.7 L (27.0-33.0) pg MCHC 32.1 (31.0-35.0) g/dl RDW 13.2 (11.0-16.0) % Plt Count 231 (160-400) X10*3/uL MPV 11.1 (9.4-12.3) fL Immature Gran % (Auto) 0.6 H (0.0-0.4) % Neut % (Auto) 58.5 (45-73) % Lymph % (Auto) 32.2 (20-40) % [place] % (Auto) 5.2 (2-11) % Eos % (Auto) 2.9 (0-4) % Baso % (Auto) 0.6 (0-2) % Lymph # (Auto) 2.8 (1.2-4.9) X10*3/uL [place] # (Auto) 0.5 (0.1-1.2) X10*3/uL Eos # (Auto) 0.3 (0.0-0.4) X10*3/uL Baso # (Auto) 0.1 (0.0-0.2) X10*3/uL Abs Immat Gran (auto) 0.05 H (0.00-0.03) X10*3/uL Absolute Neuts (auto) 5.1 (2.0-8.3) x10*3/uL Absolute Nucleated RBC 0.000 (0.0-0.012) X10*3/uL Nucleated RBC % (auto) 0.0 (0.0-0.2) /100WBC PT 11.6 (10.0-13.1) SEC INR 1.0 (0.9-1.1) APTT 35.3 (26.0-36.4) SEC Sodium 144 (135-145) mmol/L Potassium 3.7 (3.3-5.1) mmol/L Chloride 106 (96-108) mmol/L Carbon Dioxide 29 (22-29) mmol/L Anion Gap 13 (12-20) BUN 12 (9-16) mg/dL Creatinine 0.80 (0.5-1.4) mg/dL Estim Creat Clear Calc 99.3 Estimated GFR > 60 Random Glucose 103 (60-115) mg/dL Calcium 9.3 (8.4-10.2) mg/dL Total Bilirubin 0.3 (0.0-1.0) mg/dL AST 19 (5-31) U/L ALT 19 (0-31) U/L Alkaline Phosphatase 119 H (39-117) U/L Troponin I High Sens (<3.5-17.0) ng/L Total Protein 7.4 (6.5-8.0) g/dL Albumin 4.0 (3.5-5.0) g/dL 10/15/22 Range/Units 19:51 WBC (4.8-10.8) X10*3/uL RBC (4.20-5.50) X10*6/uL Hgb (12.0-16.0) g/dl Hct (37.0-47.0) % MCV (80.0-98.0) fL MCH (27.0-33.0) pg MCHC (31.0-35.0) g/dl RDW (11.0-16.0) % Plt Count (160-400) X10*3/uL MPV (9.4-12.3) fL Immature Gran % (Auto) (0.0-0.4) % Neut % (Auto) (45-73) % Lymph % (Auto) (20-40) % [place] % (Auto) (2-11) % Eos % (Auto) (0-4) % Baso % (Auto) (0-2) % Lymph # (Auto) (1.2-4.9) X10*3/uL [place] # (Auto) (0.1-1.2) X10*3/uL Eos # (Auto) (0.0-0.4) X10*3/uL Baso # (Auto) (0.0-0.2) X10*3/uL Abs Immat Gran (auto) (0.00-0.03) X10*3/uL Absolute Neuts (auto) (2.0-8.3) x10*3/uL Absolute Nucleated RBC (0.0-0.012) X10*3/uL Nucleated RBC % (auto) (0.0-0.2) /100WBC PT (10.0-13.1) SEC INR (0.9-1.1) APTT (26.0-36.4) SEC Sodium (135-145) mmol/L Potassium (3.3-5.1) mmol/L Chloride (96-108) mmol/L Carbon Dioxide (22-29) mmol/L Anion Gap (12-20) BUN (9-16) mg/dL Creatinine (0.5-1.4) mg/dL Estim Creat Clear Calc Estimated GFR Random Glucose (60-115) mg/dL Calcium (8.4-10.2) mg/dL Total Bilirubin (0.0-1.0) mg/dL AST (5-31) U/L ALT (0-31) U/L Alkaline Phosphatase (39-117) U/L Troponin I High Sens < 2.7 (<3.5-17.0) ng/L Total Protein (6.5-8.0) g/dL Albumin (3.5-5.0) g/dL Independent Interpretation I performed an independent interpretation of an: EKG (Sinus rhythm with a rate of 66 beats per minute. No ST segment elevation or depressions) Discharge Plan Discharge Clinical Impression: Acute pain of left shoulder, Headache Patient Disposition: Home, Self-Care Instructions: Shoulder Pain (ED) Additional Instructions: Your workup in the ER did not show any concerning abnormalities. your blood pressure was as high as 172/84. You should start taking amlodipine 5 mg daily. Call your doctor tomorrow morning to let them know your starting this medication Use cyclobenzaprine as needed for her shoulder pain and muscle spasms Prescriptions: New cyclobenzaprine 10 mg tablet 10 mg PO TID PRN (Reason: muscle spasm) Qty: 15 0RF amlodipine 5 mg tablet 5 mg PO DAILY Qty: 30 0RF No Action medroxyprogesterone [Provera] 10 mg tablet 10 mg PO DAILY 90 Days Qty: 90 1RF Rx Instructions: start Provera 1 tablet daily from day 15-24 cyclically every months, day 1 being 1st day of menses Interventions: ED Discharge Assessment Last Done: 10/16/22 00:21 Discharge Date/Time: 10/16/22 00:22
[2022-10-15 19:55] LABS: MANUAL DIFF FLAG NO
--- NOTE | 2022-10-15 20:11 | PC.NURSE ---
labs drawn EKG performed at bedside, call booth within reach- pt is mohawk speaking only with family member at bedside, calm and cooperative, no apparent distress noted. call booth within reach
[2022-10-15 20:19] LABS: Basophils Absolute Auto 0.1 X10*3/uL (0.0-0.2); Basophils Percent Auto 0.6 % (0-2); Eosinophils Absolute Auto 0.3 X10*3/uL (0.0-0.4); Eosinophils Percent Auto 2.9 % (0-4); Hematocrit 41.8 % (37.0-47.0); Hemoglobin 13.4 g/dl (12.0-16.0); Imm Gran Abs Auto 0.05 X10*3/uL (0.00-0.03); Imm Gran Pct Auto 0.6 % (0.0-0.4); Lymphocytes Absolute Auto 2.8 X10*3/uL (1.2-4.9); Lymphocytes Percent Auto 32.2 % (20-40); Mean Corpuscular HGB Conc 32.1 g/dl (31.0-35.0); Mean Corpuscular Hemoglobin 26.7 pg (27.0-33.0); Mean Corpuscular Volume 83.3 fL (80.0-98.0); Mean Platelet Volume 11.1 fL (9.4-12.3); Monocytes Absolute Auto 0.5 X10*3/uL (0.1-1.2); Monocytes Percent Auto 5.2 % (2-11); Neutrophils Absolute Auto 5.1 x10*3/uL (2.0-8.3); Neutrophils Percent Auto 58.5 % (45-73); Platelet Count 231 X10*3/uL (160-400); Red Blood Count 5.02 X10*6/uL (4.20-5.50); Red Cell Distribution Width 13.2 % (11.0-16.0); White Blood Count 8.7 X10*3/uL (4.8-10.8)
[2022-10-15 20:28] LABS: Alanine Aminotransferase 19 U/L (0-31); Alkaline Phosphatase 119 U/L (39-117); Anion Gap 13 (12-20); Aspartate Amino Transferase 19 U/L (5-31); Bilirubin Total 0.3 mg/dL (0.0-1.0); Blood Urea Nitrogen 12 mg/dL (9-16); Calcium 9.3 mg/dL (8.4-10.2); Carbon Dioxide 29 mmol/L (22-29); Chloride 106 mmol/L (96-108); Creatinine Clr Calc Pharmacy 99.3; Estimated Glomerular Filt Rate > 60; Glucose Random 103 mg/dL (60-115); Potassium 3.7 mmol/L (3.3-5.1); Sodium 144 mmol/L (135-145); Total Protein 7.4 g/dL (6.5-8.0)
[2022-10-15 20:30] LABS: Prothrombin Time 11.6 SEC (10.0-13.1)
[2022-10-15 20:33] LABS: Partial Thromboplastin Time 35.3 SEC (26.0-36.4)
[2022-10-15 20:36] LABS: Troponin-I High Sensitivity < 2.7 ng/L (<3.5-17.0)
[2022-10-16 00:20] VITALS: BP 140/77; PULSE 71; RESP 18; O2SAT 98
== END 2022-10-16 00:22 | disposition home or self-care (01) ==
PROVIDERS: Physician Assistant; Emergency Provider Emergency Medicine; PCP Registered Nurse
DX: M79.602 Pain in left arm (principal); R51.9 Headache, unspecified; R94.31 Abnormal electrocardiogram [ECG] [EKG]; Z79.899 Other long term (current) drug therapy
CPT/HCPCS: 36415; 73030; 80053; 84484; 85025; 85610; 85730; 93005; 99283; 99284

== ENCOUNTER 2023-02-06 13:32 | Outpatient (AMB) | payer MEDICAID, SELFPAY ==
--- NOTE | 2023-02-06 13:34 | A.OFFVIS_ITS ---
Intake Vital Signs 02/06/23 13:40 Height 5 ft 6 in Weight 224 lb 13.944 oz BMI 36.3 BP 124/82 Intake Visit Reasons: EMB Industrial Maintenance Manager Required: Yes Industrial Maintenance Manager Language: Patient Biller Name: Anna BARR Information Interpreted: non-clinical & clinical Button Station Worker: Button Station Worker Present (Anna BARR) Accompanied by: Self / Same As Patient Allergies No Known Allergies [No Known Allergies*] Allergy (Verified 02/06/23 13:40) Post menopausal: Yes HPI HPI Comments History of Present Illness Details Presenting for repeat EMB for proliferative endometrium in menopause seen on previous EMB few months ago, patient was started on progesterone , took it for a week, had her menstrual cycle and stopped it on her own . 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 hysteroscopy D&C) & the risks were discussed with the patient including but not limited: pain, uterine perforation, bleeding, infection, possible injury to bladder, bowel, ureter, possible need for blood transfusion with all its possible risks. The patient verbalized understanding all questions answered and signed consent. The patient was placed into the dorsal lithotomy position; a speculum was inserted in the vagina. Using aseptic technique for the procedure, the cervix was cleansed with Betadine. The anterior lip of the cervix was grasped with a single tooth tenaculum. The uterus was sounded to 7 cm with a 4 mm Pipelle was used. Tissues samples were obtained and placed in formalin, in a patient labeled container and sent to the pathology department. At the end of the procedure, there was minimal bleeding noted The patient tolerated the procedure well and was discharged in good condition with the following instructions: Nothing in the vagina until the bleeding stops. No sex until the bleeding stops, to call if any of the following occurs: fever (>100.4), flu-like symptoms, abdominal pain, heavy bleeding, four smelling vaginal discharge. The patient was instructed to schedule a Follow up appointment in 2 weeks to discuss pathology results of the biopsy and treatment options. This note was generated with a voice recognition program. Some errors may have been overlooked during the review of this note. Sometimes these errors may affect the content or meaning of a given sentence. [id number] Biopsy Assessment & Plan Assessment & Plan (1) Postmenopausal bleeding: Comment: With proliferative endometrium in 07/06 Code(s): N95.0 - Postmenopausal bleeding Plan: EMB repeated, see procedure note. Discussed with the patient the importance of progesterone therapy to decrease the risk of endometrial hyperplasia and/or malignancy in patient with proliferative endometrium in menopause. Instructions given the patient to schedule a 2 week follow-up appointment will discuss the results the pathology options of treatment then. All questions answered, the patient verbalized understanding Orders: Orders AMB Endometrial Biopsy Today N95.0 - Postmenopausal bleeding Surgical Today N95.0 - Postmenopausal bleeding Coding Level of Care Code Est Pt Level 3 (38974) Procedure Only Diagnoses Postmenopausal bleeding N95.0 CPT Codes Endometrial Biopsy - CPT: 67686-[id number] Biopsy ([id number])
[2023-02-06 13:40] VITALS: BP 124/82; BMI 36.3
== END 2023-02-06 14:18 | disposition home or self-care (01) ==
PROVIDERS: Visit Provider Obstetrics & Gynecology
DX: N95.0 Postmenopausal bleeding (principal)
CPT/HCPCS: 58100

== ENCOUNTER 2023-02-06 13:32 | Outpatient (REF) | payer MEDICAID, SELFPAY | END 2023-02-06 13:33 | disposition home or self-care (01) | LOC: HO.LNP 13:32 | PROVIDERS: Visit Provider Obstetrics & Gynecology | DX: N95.0 Postmenopausal bleeding (principal) | CPT/HCPCS: 58100; 88305 ==

== ENCOUNTER 2023-03-22 10:17 | Outpatient (AMB) | payer MEDICAID, SELFPAY ==
--- NOTE | 2023-03-22 10:22 | MHC.OFFVIS ---
Intake Vital Signs 03/22/23 10:28 Height 5 ft 6 in Weight 224 lb 13.944 oz BMI 36.3 BP 126/80 Intake Visit Reasons: EMB Results Roving Department End Finder Required: Yes Roving Department End Finder Language: Lamina Searcher Name: Anna BARR Information Interpreted: non-clinical & clinical Underwriting Operations Manager: Underwriting Operations Manager Present Accompanied by: Self / Same As Patient Allergies No Known Allergies [No Known Allergies*] Allergy (Verified 03/22/23 10:29) Is last menstrual period known: Yes Last menstrual period: 03/11/20 Post menopausal: Yes Patient : No Do you need a note to return to daycare/school/sports/work: Yes (for surgery on sunday) HPI HPI Comments History of Present Illness Details Presenting for follow-up post EMB. 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 Female Reproductive History Menstrual Age of Menarche: 13 Date of last menstrual period: 03/11/20 Total pregnancies: 2 Full term: 2 Review of Systems Card Reports as per HPI and Reports no additional complaints Resp Reports as per HPI and Reports no additional complaints GI Reports as per HPI and Reports no additional complaints Reports as per HPI Physical Exam Vital Signs: Last Vital Signs BP 126/80 03/22/23 10:28 BMI result Body Mass Index 36.3 Const General: cooperative, healthy appearing and comfortable Chest Chest palpation & inspection: normal inspection of the chest and normal palpation of entire chest wall Breast/axilla inspection: normal inspection of the breasts and normal inspection of the axillae Breast/axilla palpation: normal palpation of the breasts, normal palpation of the axillae and no axillary lymphadenopathy Resp Effort & Inspection: normal respiratory effort Auscultation: clear to auscultation bilaterally Percussion: percussion normal Cardio Palpation: normal PMI Rate: regular rate Rhythm: regular rhythm Heart sounds: no murmurs and no rubs Peripheral pulses: Peripheral pulses 2+ throughout GI Inspection: Yes normal to inspection Palpation (GI): Soft to palpation, nontender, no guarding, not rigid and No hepatosplenomegaly present Percussion: Yes normal to percussion Auscultation: normal bowel sounds Rectal Exam - Female: deferred Assessment & Plan Assessment & Plan (1) Postmenopausal bleeding: Comment: With fragments of endometrial polyp on EMB pathology and proliferative endometrium Code(s): N95.0 - Postmenopausal bleeding Plan: Discussed with the patient is of the pathology showing proliferative endometrium and endometrial polyp fragments, ecommended to the patient progesterone treatment , levo norgestrel IUD for p.o. progestins in addition to repeat endometrial biopsy every 3 months for a year. All pros and cons, risks and benefits of each were discussed with the patient. The patient decided to restart on Provera 10 mg p.o. q.d. day 15-24 cyclicly in addition , recommended repeat endometrial biopsy every 3 months for 1 year. In addition, recommended hysteroscopy D&C possible polypectomy/myomectomy. Discussed with the patient the procedure , all benefits and risks including but not limited to inability to complete the procedure , bleeding, infection, possible need for blood transfusion with all its risk ( HIV,syphilis, Hepatitis, anaphylaxis shock, others..), injury to bladder, rectum, possible need for laparoscopy/laparotomy or hysterectomy. The patient verbalized understanding and signed the consent. Instructions given the patient to schedule a 2 week postoperative appointment (2) Myoma: Code(s): D21.9 - Benign neoplasm of connective and other soft tissue, unspecified Plan: Will Repeat pelvic ultrasound to compare the size myoma and treat accordingly. Instructions given the patient to schedule an ultrasound follow-up appointment P Orders: Orders US pelvic and transvaginal Today D21.9 - Benign neoplasm of connective and other soft tissue, unspecified Medications: Refilled medroxyprogesterone (Provera) start Provera 1 tablet daily from day 15-24 cyclically every months, day 1 being 1st day of menses 10 mg PO DAILY 90 days 90 tabs 1RF Coding Level of Care Code Est Pt Level 3 (73198) Diagnoses Postmenopausal bleeding N95.0 Myoma D21.9
[2023-03-22 10:28] VITALS: BP 126/80; BMI 36.3
== END 2023-03-22 10:43 | disposition home or self-care (01) ==
LOC: HO.HWS 10:17
PROVIDERS: PCP Registered Nurse; Visit Provider Obstetrics & Gynecology
DX: N95.0 Postmenopausal bleeding (principal); D21.9 Benign neoplasm of connective and other soft tissue, unspecified
CPT/HCPCS: 99213

== ENCOUNTER → 2023-03-22 10:17 | Outpatient (BNVA) | payer MEDICAID, SELFPAY | PROVIDERS: PCP Registered Nurse; Visit Provider Obstetrics & Gynecology | DX: N95.0 Postmenopausal bleeding (principal); D21.9 Benign neoplasm of connective and other soft tissue, unspecified | CPT/HCPCS: 99212 ==

== ENCOUNTER 2023-03-30 13:11 | Outpatient (REF) | payer MEDICAID, SELFPAY ==
--- NOTE | ~2023-03-30 | US_ITS ---
EXAMINATION: US PELVIS CLINICAL INFORMATION: Benign neoplasm of connective tissue; postmenopausal patient. COMPARISON: None available. TECHNIQUE: Ultrasound of the pelvis is performed using both transabdominal and transvaginal transducers along with Doppler. Transvaginal imaging is performed due to inadequate visualization transabdominally. FINDINGS: Uterus: The uterus is anteverted and anteflexed. The uterus measures 7.5 x 4.2 x 5.1 cm. Nabothian cysts are seen within the cervix, some partially calcified. The double wall endometrial thickness is 1.2 mm. The uterus is smooth in contour and has normal myometrial echogenicity. Fibroids: There is 1 fibroid seen. 1. Location: Posterior body. Size: 1.2 x 1.1 x 1.2 cm. Prior: 0.9 x 0.9 x 1.1 cm. Fibroid characteristics: Hypoechoic. Adnexa: Both ovaries are visualized. There is normal color flow to the adnexa. There is no ovarian torsion. There is no pelvic ascites or fluid collection. Right ovary measures 1.7 x 1.1 x 1.1 cm, volume 1.0 mL. Left ovary measures 2.5 x 1.5 x 1.1 cm, volume 2.2 mL. US/US pelvic and transvaginal IMPRESSION: 1. A small uterine fibroid is seen, as detailed. 2. Nabothian cysts are seen within the cervix.
== END 2023-03-30 13:12 | disposition home or self-care (01) ==
LOC: HO.US 13:11
PROVIDERS: PCP Registered Nurse; Visit Provider Obstetrics & Gynecology
DX: D21.9 Benign neoplasm of connective and other soft tissue, unspecified (principal)
CPT/HCPCS: 76830; 76856

== ENCOUNTER 2023-04-13 06:47 | Day surgery (SDC) | payer MEDICAID, SELFPAY ==
[2023-04-10 15:32] VITALS: BMI 36.3
--- NOTE | 2023-04-11 15:03 | HO.ANESPROP2 ---
Documented by User: Kellen Pace NP 04/11/23 15:05 HPI - Anesthesia Eval Consult details Narrative: 52yo F for D&C Hysteroscopy, possible myomectomy/polypectomy PMFSH Active Problems Active Problems: All Active Problems (Updated 04/10/23 @ 15:31 by Paulette Serrano, OMAR) Dysplasia of cervix, low grade (MILANA 1) (Acute) Myoma (Acute) Inflammation of cervix (Acute) Postmenopausal bleeding (Acute) Varicose veins of right lower extremity with inflammation (Acute) Osteoarthritis of left knee (Acute) Past Medical History Medical History (Updated 04/13/23 @ 07:26 by Allyson Bautista RN) Elevated cholesterol HTN (hypertension) Brain aneurysm Family History Family History Maternal Aunt Breast CA Surgical History Surgical History (Updated 04/13/23 @ 07:24 by Allyson Bautista RN) Hx of varicose vein stripping History of History of cholecystectomy Social History Social History Use of substances other than those prescribed or required for medical reasons: No Are you DNR?: No Advance Directives: No Advance Directives Information Provided: Yes Current occupational status: employed 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 No other aneurysms are identified, and the remainder of the study is within normal limits. Assessment and Plan Assessment Anesthesia Assessment: Chart Reviewed Documented by User: Tom Coreas MD 04/13/23 08:32 [facility] Past Medical History Medical History (Updated 04/13/23 @ 07:26 by Allyson Bautista RN) Elevated cholesterol HTN (hypertension) Brain aneurysm Narrative: has brain aneurysm, nothing to do. 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 Meds Allergies Allergy/AdvReac Type Severity Reaction Status Date / Time No Known Allergies Allergy Verified 04/13/23 07:26 [No Known Allergies*] Exam Airway Mallampati Class: I TM Dist: <=3cm Neck ROM: Full Denture: Upper and Lower Heart: ok Lungs: ok Assessment and Plan Assessment Anesthesia Assessment: Anesthesia Plan Discussed Final Anesthetic Review Family History of Problems with Anesthesia: No History of Problems with Anesthesia: No NPO: Yes ASA Class: III Final Preanesthetic Review: No Changes in Pt Med Stat, Meds/Allgs Chart Reviewed, Consent Obtained/Reviewed and Anes Risks/Benef Reviewed Patient Risk: Intermediate Procedure Risk: Low Anesthetic Plan Anesthetic Plan: GA and Agree w/ Assess. and Plan Disposition: Standard PACU
[2023-04-13 07:13] VITALS: BMI 36.3
[2023-04-13 07:35] VITALS: BP 127/70; PULSE 70; RESP 16; TEMP 36.4; O2SAT 99
[2023-04-13] MEDS: Lactated Ringers 1,000 ML 100 ML IVCONT (07:53)
--- NOTE | 2023-04-13 08:31 | MHC.SHP ---
Pre-Procedural Eval Section A Date of Service: 04/13/23 The patient is an INPATIENT: No Changes since office visit: No Cold of Flu in the past 2 weeks, No New Medical Problems, No Changes in Medication and No Patient answered all questions The History & Physical has been completed within 30 days and I have reviewed it.: Yes Section B Chief Complaint: Postmenopausal bleeding Allergies: Allergies Allergy/AdvReac Type Severity Reaction Status Date / Time No Known Allergies Allergy Verified 04/13/23 07:26 [No Known Allergies*] Plan Diagnosis/Plan: Unchanged I have reviewed the history and physical and performed a pertinent physical examination on my patient. No changes have occurred unless specified. Time Spent With Patient Time: Total time managing care of this patient today ____ minutes.
[2023-04-13 09:15] VITALS: BP 104/62; PULSE 74; RESP 16; TEMP 37.1; O2SAT 96
--- NOTE | 2023-04-13 09:18 | PM.OP ---
Brief Operative Note Date of Service: 04/13/23 Pre-op diagnosis: Postmenopausal bleeding, polyp by EMB pathology Post-op diagnosis: same (Endometrial polyp) Procedure: Hysteroscopy D&C, Polypectomy Surgeon: Junito Clarke MD Anesthesia: GLMA Was an Thoracic Surgeon used for this Procedure?: No Estimated blood loss (mL): 0 Pathology: other (Endometrial Scrapping. Polyp) Condition: stable Disposition: PACU
--- NOTE | 2023-04-13 09:19 | W.PM.OPN ---
Operative Note Operative Note Date of Service: 04/13/23 Narrative: Preop Diagnosis: Postmenopausal bleeding, Endometrial polyp by EMB pathology Operation: Diagnostic Hysteroscopy, Dilataion & Curettage and polypectomy Post Op Diagnosis: Endometrial Polyp QBL: Minimal Anesthesia: GLMA Surgeon: Junito Clarke MD Fire Captain Marine: None Complication: None Pathology: Endometrial Scrapings, Endometrial polyp Procedure: The patient was put in the dorsal lithotomy position, scrubbed, and draped in the usual manner. A sterile speculum was inserted in the patient's vagina. The anterior lip of the cervix was grasped with a single tooth tenaculum. The cervix was dilated up to 5 mm, then the scope was inserted in the patient's uterus. Inspection revealed endometrial polyp. The Myosure Reach device was used; it was introduced through the operative channel and polypectomy done with no complications. The scope was then taken out from the uterine cavity, sharp curettings was carried on with minimal to moderate amount of tissues retrieved. At the end of the procedure, all instruments were taken out of the patient uterine and vaginal cavity. The single tooth tenaculum was removed and homeostasis was assured using pressure,. The patient tolerated the procedure well and was transferred to the PACU in a stable condition.
[2023-04-13 09:20] VITALS: BP 100/58; PULSE 64; RESP 17; O2SAT 96
[2023-04-13 09:25] VITALS: BP 108/61; PULSE 60; RESP 17; O2SAT 96
[2023-04-13 09:30] VITALS: BP 104/47; PULSE 55; RESP 17; O2SAT 96
[2023-04-13 09:49] VITALS: BP 106/62; PULSE 51; RESP 18; TEMP 36.3; O2SAT 97
== END 2023-04-13 10:40 | disposition home or self-care (01) ==
PROVIDERS: PCP Registered Nurse; Visit Provider Obstetrics & Gynecology
PROC: 0UDB8ZZ Extraction of Endometrium, Via Natural or Artificial Opening Endoscopic (ICD-10-PCS; CPT 58558; principal; 2023-04-13 08:30)
DX: N95.0 Postmenopausal bleeding (principal); N84.0 Polyp of corpus uteri; I67.1 Cerebral aneurysm, nonruptured; I10 Essential (primary) hypertension; Z90.49 Acquired absence of other specified parts of digestive tract
CPT/HCPCS: 58558; 88305; J1885; J2405; J2704; J3010

== ENCOUNTER → 2023-04-13 06:47 | Outpatient (BNV) | payer MEDICAID, SELFPAY | PROVIDERS: PCP Registered Nurse; Visit Provider Obstetrics & Gynecology | DX: N95.0 Postmenopausal bleeding (principal); N84.0 Polyp of corpus uteri | CPT/HCPCS: 58558 ==

== ENCOUNTER 2023-04-27 11:35 | Outpatient (REF) | payer MEDICAID, SELFPAY ==
[2023-05-04 13:23] LABS: H Pylori Breath Test Positive (Negative)
== END 2023-04-27 11:36 | disposition home or self-care (01) ==
LOC: HO.LAB 11:35
PROVIDERS: PCP Registered Nurse; Visit Provider Nurse Practitioner Family
DX: Z01.818 Encounter for other preprocedural examination (principal); R10.13 Epigastric pain; K21.9 Gastro-esophageal reflux disease without esophagitis; K59.01 Slow transit constipation
CPT/HCPCS: 83013; 99212

== ENCOUNTER 2023-04-27 11:35 | Outpatient (AMB) | payer MEDICAID, SELFPAY ==
[2023-04-27 11:39] VITALS: BP 135/75; PULSE 81; BMI 36.4
--- NOTE | 2023-04-27 11:39 | A.OFFVIS_ITS ---
Intake Vital Signs 04/27/23 11:39 Height 5 ft 6 in Weight 225 lb 4.999 oz BMI 36.4 BP 135/75 Blood Pressure Location Lt brachial Position Sitting Pulse 81 Pulse Source Pulse Oximeter Intake Visit Reasons: Colonoscopy screening Intake Note: Pt presents to the office today for a colonoscopy screening. Pt states she does get nauseous sometimes in the morning but denies any vomiting. Pt denies any diarrhea but states she does have problems with constipation. Business Center Representative Required: Yes Business Center Representative Language: Strategic Development Manager Name: Alfredo ([id number]) Allergies No Known Allergies [No Known Allergies*] Allergy (Verified 04/27/23 11:40) HPI Colonoscopy screening HPI Details 52 year old? female with past medical hi story of cervical dysplasia, varicose veins, osteoarthritis is here today for pre colonoscopy screening.? Patient was sent to us by her PCP.? This is her first colonoscopy screening.? Patient reports postprandial epigastric discomfort and reflux. Patient also rep orts that she is constipated. No bowel movement sometimes 2-3 days. Patient also reports postprandial abdominal bloating and abdominal pain.? History of cholecystectomy several years ago. Denies any personal or family history of gastrointestinal disease, colon polyps, or cancer.? Denies history of difficulty with sedation or anesthesia in the past.? Negative for history of sleep apnea.? Denies any history of cardiac, renal, pulmonary, or hepatic disease.?? No history of infectious? diseases like hepatitis A, B, C, HIV or tuberculosis.? Patient is not on any anticoagulation therapy. 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 Female Reproductive History Menstrual Age of Menarche: 13 Review of Systems Const Denies weight gain and Denies weight loss ENT Reports no additional complaints, Denies dysphagia and Denies odynophagia Card Reports no additional complaints Resp Reports no additional complaints GI Reports abdominal pain (Epigastric), Denies belching, Denies melena, Reports bloating, Denies change in bowel habits, Reports constipation, Denies dysphagia, Denies excessive flatus, Denies dyspepsia, Denies heartburn, Denies diarrhea, Denies loose stools, Denies nausea, Denies odynophagia and Denies vomiting Reports no additional complaints Musc Reports no additional complaints Neuro Reports no additional complaints Psych Reports no additional complaints Endo Reports no additional complaints Physical Exam Vital Signs: BMI result Body Mass Index 36.4 Const General: healthy appearing, no acute distress and well developed Orientation/consciousness: patient oriented x3 HEENT Head: Yes normal to inspection, Yes normocephalic and Yes atraumatic Face and sinus: Yes normal facial exam Mouth: Normal oral and palatal mucosa present Throat: Yes posterior oropharynx normal, Yes tonsils normal and Yes uvula midline Eyes General: appearance normal, both eyes and all related structures Neck Neck: Yes normal visual inspection, Yes full ROM and Yes trachea midline Thyroid: Thyroid normal Resp Effort & Inspection: normal respiratory effort, able to speak in complete sentences, no tracheal deviation and symmetric chest movement Auscultation: clear to auscultation bilaterally Cardio Rate: regular rate GI Inspection: Yes normal to inspection, No distended and Yes obesity Palpation (GI): Soft to palpation, not firm, nontender and No hepatosplenomegaly present Auscultation: normal bowel sounds General: Yes no CVA tenderness Back/Spine/Pelvis Back: no CVA tenderness Skin General skin exam: elasticity normal, turgor normal and dry skin Neuro General: patient oriented x3 Psych Appearance: grossly normal Mental Status: mental status grossly normal Assessment & Plan Assessment & Plan (1) Postprandial abdominal pain in right upper quadrant: Code(s): R10.11 - Right upper quadrant pain (2) GERD (gastroesophageal reflux disease): Code(s): K21.9 - Gastro-esophageal reflux disease without esophagitis Qualifiers: Esophagitis presence: esophagitis presence not specified Qualified Code(s): K21.9 - Gastro-esophageal reflux disease without esophagitis (3) Constipation: Code(s): K59.00 - Constipation, unspecified Qualifiers: Constipation type: slow transit constipation Qualified Code(s): K59.01 - Slow transit constipation (4) Epigastric abdominal pain: Code(s): R10.13 - Epigastric pain (5) Screen for colon cancer: Code(s): Z12.11 - Encounter for screening for malignant neoplasm of colon Plan Will check patient for H pylori today. Patient reports frequent epigastric discomfort postprandially and sometimes even when drinking water. Patient reports dyspepsia without dysphagia or odynophagia. Patient will be started on omeprazole 40 mg daily. Patient reports that she is not moving her bowels well. Will start her on Senokot. Patient was also encouraged to increase fluid intake and activity to promote better bowel motility. Patient denies any melena, hematochezia, unintentional weight loss or ribbon like stools. Patient reports no family history of CRC. No trouble in anesthesia in the past. No history of sleep apnea. Patient will return in 4 weeks and we will discuss going for colonoscopy and possible upper endoscopy. Patient is agreeable to this plan and verbalizes understanding of instructions. She was given the opportunity to ask questions and all questions answered. Thank you for allowing me to participate in her care Orders: Orders H Pylori Breath Test Today R10.13 - Epigastric pain Medications: New omeprazole 40 mg PO DAILY 90 caps 3RF K21.9 - Gastro-esophageal reflux disease without esophagitis sennosides (Natural Senna Laxative) 17.2 mg (2 x 8.6 mg) PO BEDTIME 180 tabs 3RF constipation K59.00 - Constipation, unspecified Coding Level of Care Code New Pt Level 4 (49436) Diagnoses Postprandial abdominal pain in right upper quadrant R10.11 Gastroesophageal reflux disease, unspecified whether esophagitis present K21.9 Esophagitis presence: esophagitis presence not specified Slow transit constipation K59.01 Constipation type: slow transit constipation Epigastric abdominal pain R10.13 Screen for colon cancer Z12.11 Time Spent (min) 45 Comment 30 minutes spent with patient and additional 15 minutes spent reviewing her records
== END 2023-04-27 13:33 | disposition home or self-care (01) ==
PROVIDERS: PCP Registered Nurse; Visit Provider Nurse Practitioner Family
DX: K21.9 Gastro-esophageal reflux disease without esophagitis (principal); K59.01 Slow transit constipation
CPT/HCPCS: 99213

== ENCOUNTER 2023-05-01 12:44 | Outpatient (AMB) | payer MEDICAID, SELFPAY ==
--- NOTE | 2023-05-01 12:55 | MHC.OFFVIS ---
Intake Vital Signs 05/01/23 12:56 Height 5 ft 6 in Weight 225 lb BMI 36.3 BP 126/80 Intake Visit Reasons: post op Cylinder Press Operator Required: Yes Cylinder Press Operator Language: Psych Coordinator Name: Anna Peoples Allergies No Known Allergies [No Known Allergies*] Allergy (Verified 05/01/23 12:56) Is last menstrual period known: No Post menopausal: Yes Patient : No HPI HPI Comments History of Present Illness Details The patient is presenting post hysteroscopy D&C no complaints minimal vaginal bleeding no feverishness chills or abdominal pain. The pathology showed the following: A. Endometrium, polyp, biopsy: Disordered proliferative endometrium; negative for atypia, hyperplasia or malignancy. B. Endometrium, curettage: Fragments of proliferative endometrium; negative for atypia, hyperplasia or malignancy Last mammogram was done at [facility] according to patient few months ago was negative [facility] Medical History (Updated 05/01/23 @ 13:04 by Junito Clarke MD) Elevated cholesterol HTN (hypertension) Brain aneurysm Surgical History (Updated 05/01/23 @ 12:58 by MOMO Wahl) Hx of dilation and curettage Hx of varicose vein stripping History of History of cholecystectomy Family History Maternal Aunt Breast CA Social History Alcohol intake: never Patient Tobacco Use Status: Never used Tobacco Patient : No Current occupational status: employed 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 Female Reproductive History Menstrual Age of Menarche: 13 Review of Systems Const All systems reviewed & are unremarkable except as noted in HPI and below Reports as per HPI and Reports no additional complaints GI Reports no additional complaints Reports no additional complaints Physical Exam Vital Signs: Last Vital Signs BP 126/80 05/01/23 12:56 BMI result Body Mass Index 36.3 Assessment & Plan Assessment & Plan (1) Postmenopausal bleeding: Comment: With proliferative endometrium Code(s): N95.0 - Postmenopausal bleeding Plan: Discussed with the patient the results of the pathology of the endometrial scrapings showing proliferative endometrium. Discussed with the patient the sensitivity, specificity, positive and negative predictive value, of endometrial biopsy in detecting endometrial pathology including but not limited to endometrial hyperplasia, cancer and other pathology; in addition discussed the patient the pathology of the endometrium in post menopause is associated with an increase in the risk of endometrial hyperplasia and malignancy in patient with preferred of endometrial pathology in menopause. Recommended to the patient progesterone treatment , levo norgestrel IUD or p.o. progestins in addition to repeat endometrial biopsy every 3 months for a year. All pros and cons, risks and benefits of each were discussed with the patient. The patient decided to continue with Provera that she has been on over the last few months since EMB pathology showed proliferative endometrium, in addition , recommended repeat endometrial biopsy every 3 months for 1 year. Instructed the patient to call in case is vaginal bleeding bleeding recurs, schedule endometrial biopsy in 3 months. All questions answered and the patient verbalized understanding and agreed with the plan. Orders: Orders MM tomosynthesis screening BI Today Z12.31 - Encounter for screening mammogram for malignant neoplasm of breast Coding Level of Care Code Est Pt Level 3 (02287) Diagnoses Postmenopausal bleeding N95.0
[2023-05-01 12:56] VITALS: BP 126/80; BMI 36.3
== END 2023-05-01 14:36 | disposition home or self-care (01) ==
PROVIDERS: PCP Registered Nurse; Visit Provider Obstetrics & Gynecology
DX: N95.0 Postmenopausal bleeding (principal)
CPT/HCPCS: 99213

== ENCOUNTER → 2023-05-01 12:44 | Outpatient (BNVA) | payer MEDICAID, SELFPAY | PROVIDERS: PCP Registered Nurse; Visit Provider Obstetrics & Gynecology | DX: N95.0 Postmenopausal bleeding (principal) | CPT/HCPCS: 99212 ==

== ENCOUNTER 2023-06-28 09:44 | Outpatient (AMB) | payer MEDICAID, SELFPAY ==
--- NOTE | 2023-06-28 09:49 | MHC.OFFVIS ---
Intake Vital Signs 06/28/23 09:59 Height 5 ft 6 in Weight 224 lb 13.944 oz BMI 36.3 BP 118/72 Intake Visit Reasons: Annual/ Co test Commercial Real Estate Agent Required: Yes Commercial Real Estate Agent Language: Cw Operator Name: Anna BARR Information Interpreted: non-clinical & clinical Stonecutter Hand: Stonecutter Hand Present (Anna BARR) Accompanied by: Self / Same As Patient Allergies No Known Allergies [No Known Allergies*] Allergy (Verified 06/28/23 09:59) Post menopausal: Yes HPI HPI Comments History of Present Illness Details Presenting for annual exam. No complaints. 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 Female Reproductive History Menstrual Age of Menarche: 13 Menopause type: natural Total pregnancies: 11 Full term: 8 Number of Living Children: 8 Ab induced: 1 Ab spontaneous: 2 Review of Systems Const All systems reviewed & are unremarkable except as noted in HPI and below Card Reports as per HPI Resp Reports as per HPI GI Reports as per HPI and Reports no additional complaints Reports as per HPI Physical Exam Const General: cooperative, healthy appearing and comfortable Chest Chest palpation & inspection: normal inspection of the chest and normal palpation of entire chest wall Breast/axilla inspection: normal inspection of the breasts and normal inspection of the axillae Breast/axilla palpation: normal palpation of the breasts, normal palpation of the axillae and no axillary lymphadenopathy Resp Effort & Inspection: normal respiratory effort Auscultation: clear to auscultation bilaterally Percussion: percussion normal Cardio Palpation: normal PMI Rate: regular rate Rhythm: regular rhythm Heart sounds: no murmurs and no rubs Peripheral pulses: Peripheral pulses 2+ throughout GI Inspection: Yes normal to inspection Palpation (GI): Soft to palpation, nontender, no guarding, not rigid and No hepatosplenomegaly present Percussion: Yes normal to percussion Auscultation: normal bowel sounds Rectal Exam - Female: deferred General: Yes bladder normal to palpation External Female Exam: No lesion Speculum Exam - Vagina: normal appearance of the vagina, normal palpation, normal vaginal discharge and not erythematous Speculum Exam - Cervix: normal appearance of the cervix and normal palpation Bimanual exam- vagina & uterus: normal bimanual exam, normal palpation, uterine size normal, bladder normal to palpation, consistency normal and normal palpation Bimanual Exam- Adnexa, other: normal adnexae, no masses and no tenderness Assessment & Plan Assessment & Plan (1) Well woman exam: Code(s): Z01.419 - Encounter for gynecological examination (general) (routine) without abnormal findings Plan: Co testing not indicated this year. Counseled the patient about the recommended dietary allowance of 1200 mg of Calcium & 600 IU of vitamin D. Instructions given the patient to schedule her next screening Mammogram in 04/06. The patient was referred to GI for screening colonoscopy . The patient was instructed to perform monthly self-breast exams and schedule annual exam in a year. All questions answered and the patient verbalized understanding. Orders: Referrals Gastroenterology Referral Z12.11 - Encounter for screening for malignant neoplasm of colon Coding Level of Care Code Est Pt Prev Care 40-64y(70108) Diagnoses Well woman exam Z01.419
[2023-06-28 09:59] VITALS: BP 118/72; BMI 36.3
== END 2023-06-28 10:06 | disposition home or self-care (01) ==
LOC: HO.HWS 09:44
PROVIDERS: PCP Registered Nurse; Visit Provider Obstetrics & Gynecology
DX: Z01.419 Encounter for gynecological examination (general) (routine) without abnormal findings (principal)
CPT/HCPCS: 99396

== ENCOUNTER → 2023-06-28 09:44 | Outpatient (BNVA) | payer MEDICAID, SELFPAY | PROVIDERS: PCP Registered Nurse; Visit Provider Obstetrics & Gynecology | DX: Z01.419 Encounter for gynecological examination (general) (routine) without abnormal findings (principal) | CPT/HCPCS: 99396 ==

== ENCOUNTER 2023-08-01 10:40 | Outpatient (REF) | payer MEDICAID, SELFPAY | END 2023-08-01 10:41 | disposition home or self-care (01) | LOC: HO.LNP 10:40 | PROVIDERS: PCP Registered Nurse; Visit Provider Obstetrics & Gynecology | DX: N95.0 Postmenopausal bleeding (principal) | CPT/HCPCS: 58100; 81025; 88305 ==

== ENCOUNTER 2023-08-01 10:40 | Outpatient (AMB) | payer MEDICAID, SELFPAY ==
--- NOTE | 2023-08-01 10:43 | A.OFFVIS_ITS ---
Intake Vital Signs 08/01/23 10:44 Height 5 ft 6 in Weight 224 lb BMI 36.2 BP 132/80 Intake Visit Reasons: EMB Billet Assembler Required: Yes Billet Assembler Language: Tailor'S Aide Name: Anna Information Interpreted: non-clinical & clinical Crop Grain Or Livestock Farm Manager: Crop Grain Or Livestock Farm Manager Present (Anna) Allergies No Known Allergies [No Known Allergies*] Allergy (Verified 08/01/23 10:47) HPI HPI Comments History of Present Illness Details Presenting for repeat EMB after 3 months on Provera for proliferative endometrium in menopause PFSH Medical History Elevated cholesterol HTN (hypertension) Brain aneurysm Surgical History Hx of dilation and curettage Hx of varicose vein stripping History of History of cholecystectomy Family History Maternal Aunt Breast CA Social History Alcohol intake: never Patient Tobacco Use Status: Never used Tobacco Current occupational status: employed 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 hysteroscopy D&C) & the risks were discussed with the patient including but not limited: pain, uterine perforation, bleeding, infection, possible injury to bladder, bowel, ureter, possible need for blood transfusion with all its possible risks. The patient verbalized understanding all questions answered and signed consent. The patient was placed into the dorsal lithotomy position; a speculum was inserted in the vagina. Using aseptic technique for the procedure, the cervix was cleansed with Betadine. The anterior lip of the cervix was grasped with a single tooth tenaculum. The uterus was sounded to 7 cm with a 4 mm Pipelle was used. Tissues samples were obtained and placed in formalin, in a patient labeled container and sent to the pathology department. At the end of the procedure, there was minimal bleeding noted The patient tolerated the procedure well and was discharged in good condition with the following instructions: Nothing in the vagina until the bleeding stops. No sex until the bleeding stops, to call if any of the following occurs: fever (>100.4), flu-like symptoms, abdominal pain, heavy bleeding, four smelling vaginal discharge. The patient was instructed to schedule a Follow up appointment in 2 weeks to discuss pathology results of the biopsy and treatment options. This note was generated with a voice recognition program. Some errors may have been overlooked during the review of this note. Sometimes these errors may affect the content or meaning of a given sentence. [id number] Biopsy Results AMB Test Urine AMB Test Urine Cancelled Last Edit by MOMO No on 08/01/23 10:50 AMB Test Urine previously reported as Negative Selina Manning 08/01/23 10:50 CANCELLED not needed Results Reviewed Results Reviewed: Laboratory Last Values [facility] Negative 08/01/23 10:46 Assessment & Plan Assessment & Plan (1) Postmenopausal bleeding: Comment: With proliferative endometrium Code(s): N95.0 - Postmenopausal bleeding Plan: EMB done, see procedure note, instructions given the patient to schedule repeat EMB in 4 months Orders: Orders AMB Endometrial Biopsy Today N95.0 - Postmenopausal bleeding Coding Level of Care Code Procedure Only Diagnoses Postmenopausal bleeding N95.0 CPT Codes Endometrial Biopsy - CPT: 33373-[id number] Biopsy ([id number])
[2023-08-01 10:44] VITALS: BP 132/80; BMI 36.2
== END 2023-08-01 10:55 | disposition home or self-care (01) ==
LOC: HO.HWS 10:40
PROVIDERS: PCP Registered Nurse; Visit Provider Obstetrics & Gynecology
DX: N95.0 Postmenopausal bleeding (principal); Z32.02 Encounter for pregnancy test, result negative
CPT/HCPCS: 58100

== ENCOUNTER 2023-08-08 15:47 | Outpatient (AMB) | payer MEDICAID, SELFPAY ==
[2023-08-08 15:49] VITALS: BP 134/64; PULSE 78; O2SAT 99; BMI 36.6
--- NOTE | 2023-08-08 15:49 | MHC.OFFVIS ---
Intake Vital Signs 08/08/23 15:49 Height 5 ft 6 in Weight 227 lb 1.218 oz BMI 36.6 BP 134/64 Blood Pressure Location Lt brachial Position Sitting Pulse 78 Pulse Source Pulse Oximeter Pulse Oximetry (%) 99 Oxygen Delivery Method Room Air Intake Visit Reasons: 4 week follow up PT N/S last appt Civil Geotechnical Engineer Required: Yes Civil Geotechnical Engineer Language: Swedish Information Interpreted: non-clinical & clinical Accompanied by: Self / Same As Patient Allergies No Known Allergies [No Known Allergies*] Allergy (Verified 08/08/23 15:53) HPI 4 week follow up PT N/S last appt HPI Details LAST VISIT: Tubular adenoma 2 x 2 cm tubular adenoma found on colonoscopy in February of 2021. Patient denies any do melena, hematochezia, unintentional weight loss or ribbon like stools. Screen for colon cancer Patient is due for colorectal screening again due to large size of tubular adenoma. Patient denies any GI concerning symptoms. Denies any melena, hematochezia, unintentional weight loss or ribbon like stools. Patient denies any cardiac or respiratory symptoms. No issues with anesthesia in the past. No history of sleep apnea. Not on any anticoagulation medication. Patient does not have any cardiac or respiratory symptoms. We will send her script for Colace to help her move her bowels better to ensure that patient has a good prep. Patient did had a good prep last time. Discussed with patient what to expect before during and after the procedure as well as the importance of good bowel prep and clear liquid diet day before the procedure. I will see her after the procedure. Sooner on as needed basis. Patient is agreeable to this plan and verbalizes understanding of instructions. She was given the opportunity to ask questions and all questions answered. ? Thank you for allowing me participate in her care Plan Medications New docusate sodium 100 mg PO BEDTIME 90 caps 3RF K59.00 bisacodyl (Dulcolax (bisacodyl)) Start taking 2 tablet every night 7 days before the procedure 10 mg (2 x 5 mg) PO BEDTIME 14 tabs 0RF Z12.11 TODAY'S VISIT: Patient is here today for follow-up. Patient missed couple of appointments in the past. Diagnosed with H pylori and treated with quadruple therapy. Has not been retested yet, however states that PCP has order her H pylori retesting. Patient reports postprandial epigastric discomfort with dyspepsia without dysphagia or odynophagia. Patient also reports pain in the left upper quadrant. Denies any nausea or vomiting. Reports that she continues to be constipated. Take Senokot only on as needed basis. Patient denies melena, hematochezia, unintentional weight loss or ribbon like stools. 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 Female Reproductive History Menstrual Age of Menarche: 13 Review of Systems Const Denies weight gain and Denies weight loss ENT Reports no additional complaints, Denies dysphagia and Denies odynophagia Card Reports no additional complaints Resp Reports no additional complaints GI Reports abdominal pain, Denies belching, Denies melena, Reports bloating, Reports constipation, Denies dysphagia, Denies excessive flatus, Denies dyspepsia, Reports heartburn, Denies diarrhea, Denies loose stools, Denies nausea, Denies odynophagia and Denies vomiting Reports no additional complaints Musc Reports no additional complaints Neuro Reports no additional complaints Psych Reports no additional complaints Endo Reports no additional complaints Physical Exam Vital Signs: Last Vital Signs Pulse 78 08/08/23 15:49 BP 134/64 08/08/23 15:49 Pulse Ox 99 08/08/23 15:49 Oxygen Delivery Method Room Air 08/08/23 15:49 BMI result Body Mass Index 36.6 Const General: healthy appearing, no acute distress and well developed Nutritional Appearance: well nourished Orientation/consciousness: patient oriented x3 Resp Effort & Inspection: normal respiratory effort, able to speak in complete sentences, no tracheal deviation and symmetric chest movement Auscultation: clear to auscultation bilaterally Cardio Rate: regular rate GI Inspection: Yes normal to inspection and No distended Palpation (GI): Soft to palpation, not firm, nontender and No hepatosplenomegaly present Auscultation: normal bowel sounds General: Yes no CVA tenderness Back/Spine/Pelvis Back: no CVA tenderness Skin General skin exam: elasticity normal, turgor normal and dry skin Neuro General: patient oriented x3 Psych Appearance: grossly normal Mental Status: mental status grossly normal Assessment & Plan Assessment & Plan (1) Postprandial abdominal pain in right upper quadrant: Code(s): R10.11 - Right upper quadrant pain (2) GERD (gastroesophageal reflux disease): Code(s): K21.9 - Gastro-esophageal reflux disease without esophagitis Qualifiers: Esophagitis presence: esophagitis presence not specified Qualified Code(s): K21.9 - Gastro-esophageal reflux disease without esophagitis (3) Constipation: Code(s): K59.00 - Constipation, unspecified Qualifiers: Constipation type: slow transit constipation Qualified Code(s): K59.01 - Slow transit constipation (4) Epigastric abdominal pain: Code(s): R10.13 - Epigastric pain (5) Screen for colon cancer: Code(s): Z12.11 - Encounter for screening for malignant neoplasm of colon (6) History of Helicobacter pylori infection: Code(s): Z86.19 - Personal history of other infectious and parasitic diseases Plan Patient states that she was taking Senokot on as needed basis, however she felt like it was not helpful. Will start her on MiraLax daily and Dulcolax tablets. Patient is not on any current PPIs will need H pylori testing. States that her PCP send her for H pylori testing. We will treat her empirically again if positive. Patient will go for upper endoscopy and colonoscopy. Will start her on PPI therapy. Currently patient will hold off as she will go for H pylori testing. Patient was encouraged to get it done at [facility] so we can see the results. Patient was encouraged to avoid dietary triggers and late night snacking. Staying upright for minimum 3 hours after meals discussed with patient. She will return in the office in 5 weeks, sooner on as needed basis. Patient is agreeable to this plan and verbalizes understanding of instructions. She was given the opportunity to ask questions and all questions answered. Thank you for allowing me to participate in her care Orders: Orders Lipase 08/09/23 R10.9 - Unspecified abdominal pain TSH reflex Free T4 08/09/23 K59.00 - Constipation, unspecified Liver Panel 08/09/23 R74.01 - Elevation of levels of liver transaminase levels Vitamin D 25-OH (D2 and D3) 08/09/23 E55.9 - Vitamin D deficiency, unspecified Vitamin B12 and Folate 08/09/23 R19.7 - Diarrhea, unspecified Medications: New polyethylene glycol 3350 (Miralax) 17 grams PO DAILY 510 grams 2RF bisacodyl (Dulcolax (bisacodyl)) 10 mg (2 x 5 mg) PO BEDTIME 180 tabs 4RF Coding Level of Care Code Est Pt Level 4 (92431) Diagnoses Postprandial abdominal pain in right upper quadrant R10.11 Gastroesophageal reflux disease, unspecified whether esophagitis present K21.9 Esophagitis presence: esophagitis presence not specified Slow transit constipation K59.01 Constipation type: slow transit constipation Epigastric abdominal pain R10.13 Screen for colon cancer Z12.11 History of Helicobacter pylori infection Z86.19 Time Spent (min) 40 Comment 25 minutes spent with patient and additional 15 minutes spent reviewing her records
== END 2023-08-08 17:10 | disposition home or self-care (01) ==
PROVIDERS: PCP Registered Nurse; Visit Provider Nurse Practitioner Family
DX: R10.11 Right upper quadrant pain (principal); K21.9 Gastro-esophageal reflux disease without esophagitis; K59.01 Slow transit constipation; R10.13 Epigastric pain; Z12.11 Encounter for screening for malignant neoplasm of colon; Z86.19 Personal history of other infectious and parasitic diseases
CPT/HCPCS: 99214

== ENCOUNTER → 2023-08-08 15:47 | Outpatient (BNVA) | payer MEDICAID, SELFPAY | PROVIDERS: PCP Registered Nurse; Visit Provider Nurse Practitioner Family | DX: K59.01 Slow transit constipation (principal); K21.9 Gastro-esophageal reflux disease without esophagitis; R10.11 Right upper quadrant pain; R10.13 Epigastric pain; R19.7 Diarrhea, unspecified; E55.9 Vitamin D deficiency, unspecified; R74.01 Elevation of levels of liver transaminase levels; Z86.19 Personal history of other infectious and parasitic diseases | CPT/HCPCS: 99212 ==

== ENCOUNTER 2023-08-09 08:50 | Outpatient (REF) | payer MEDICAID, SELFPAY ==
[2023-08-09 10:00] LABS: Alanine Aminotransferase 24 U/L (0-31); Albumin Level 3.9 g/dL (3.5-5.0); Alkaline Phosphatase 114 U/L (39-117); Aspartate Amino Transferase 21 U/L (5-31); Bilirubin Direct < 0.2 mg/dL (0.0-0.5); Bilirubin Total 0.2 mg/dL (0.0-1.0); Lipase 16 U/L (8-78); Total Protein 7.6 g/dL (6.5-8.0)
[2023-08-09 10:15] LABS: TSH reflex Free T4 1.45 uIU/mL (0.32-4.0)
[2023-08-09 12:13] LABS: Folate 6.7 ng/mL (> or = 4.0); Vitamin B12 656 pg/mL (200-900)
[2023-08-13 16:14] LABS: Vitamin D 25-OH, D2 <4 ng/mL; Vitamin D 25-OH, D3 26 ng/mL; Vitamin D 25-OH, Total 26 ng/mL (30-100)
== END 2023-08-09 08:51 | disposition home or self-care (01) ==
LOC: HO.LAB 08:50
PROVIDERS: PCP Registered Nurse; Visit Provider Nurse Practitioner Family
DX: R74.01 Elevation of levels of liver transaminase levels (principal); E55.9 Vitamin D deficiency, unspecified; R19.7 Diarrhea, unspecified; K59.00 Constipation, unspecified; R10.9 Unspecified abdominal pain
CPT/HCPCS: 36415; 80076; 82306; 82607; 82746; 83690; 84443

== ENCOUNTER 2023-08-28 13:13 | Outpatient (REF) | payer MEDICAID, SELFPAY ==
--- NOTE | ~2023-08-28 | MM_ITS ---
EXAMINATION: MM DIAGNOSTIC DIGITAL BREAST TOMOSYNTHESIS, LEFT US BREAST LIMITED, LEFT MAMMOGRAPHY: CLINICAL INFORMATION: Patient presents for evaluation of focal pain in the upper outer quadrant of the left breast. COMPARISON: Mammography: This study is compared with prior examinations dating back to 2021. TECHNIQUE: Digital breast tomosynthesis is performed in both the craniocaudal and mediolateral oblique views along with computer-aided detection (CAD). Synthesized 2D images are generated from the tomosynthesis. A full lateral view of the left breast is obtained. FINDINGS: There are scattered areas of fibroglandular density (ACR BI-RADS breast composition Category b). There are no significant masses, abnormal calcifications, or other abnormalities. ULTRASOUND: CLINICAL INFORMATION: Patient presents for evaluation of focal pain in the upper outer quadrant of the left breast. COMPARISON: None TECHNIQUE: Targeted sonographic evaluation was performed using a high frequency linear transducer. Selected archived documentation. FINDINGS: LEFT BREAST: Sonography of the upper outer quadrant of the left breast reveals no discrete abnormalities. Incidental note is made of a small, normal intramammary lymph node measuring less than 3 mm in greatest dimension. This finding is a normal finding in the breast tissue and would not be related to any of the patient's symptomatology. MM/MM tomosynthesis diagnostic LT IMPRESSION: No mammographic signs of malignancy. No mammographic or sonographic abnormalities in the area of patient's focal pain. Clinical follow-up is advised. OVERALL ASSESSMENT: Mammography: BI-RADS 1 - Negative Ultrasound: BI-RADS 1 - Negative RECOMMENDATION: 1. Patient should be managed based on the clinical impression. 2. Otherwise, routine annual screening mammography. Results were provided to the patient at time of visit by the technologist. This patient's information was entered into a reminder system with a target due date for their next mammogram.
== END 2023-08-28 13:14 | disposition home or self-care (01) ==
LOC: HO.MAMMO 13:13
PROVIDERS: PCP Registered Nurse; Visit Provider Registered Nurse
DX: N64.4 Mastodynia (principal)
CPT/HCPCS: 76642; 77061; 77065

== ENCOUNTER → 2023-08-28 13:30 | Outpatient (BNV) | payer MEDICAID, SELFPAY | PROVIDERS: PCP Registered Nurse; Visit Provider Radiology Diagnostic Radiology | DX: N64.4 Mastodynia (principal) | CPT/HCPCS: 76642; 77061; 77065 ==

== ENCOUNTER 2023-08-29 08:36 | Outpatient (REF) | payer MEDICAID, SELFPAY ==
[2023-08-29 12:12] LABS: Anion Gap 10 (12-20); Blood Urea Nitrogen 10 mg/dL (9-16); Calcium 9.4 mg/dL (8.4-10.2); Carbon Dioxide 27 mmol/L (22-29); Chloride 106 mmol/L (96-108); Cholesterol 176 mg/dL (<200); Estimated Glomerular Filt Rate > 60; Glucose Random 110 mg/dL (60-115); HDL Cholesterol 40 mg/dL (>40); LDL Cholesterol Calculated 122 mg/dL (<100); Potassium 4.2 mmol/L (3.3-5.1); Sodium 139 mmol/L (135-145); Triglycerides 74 mg/dL (<150)
== END 2023-08-29 08:37 | disposition home or self-care (01) ==
LOC: HO.HHCL 08:36
PROVIDERS: Visit Provider Registered Nurse
DX: Z00.00 Encounter for general adult medical examination without abnormal findings (principal)
CPT/HCPCS: 36415; 80048; 80061

== ENCOUNTER 2023-09-05 14:03 | Outpatient (REF) | payer MEDICAID, SELFPAY | END 2023-09-05 14:04 | disposition home or self-care (01) | LOC: HO.CHCLNP 14:03 | PROVIDERS: Visit Provider Registered Nurse | DX: Z13.89 Encounter for screening for other disorder (principal) ==

== ENCOUNTER 2023-09-12 10:13 | Outpatient (AMB) | payer MEDICAID, SELFPAY ==
--- NOTE | 2023-09-12 10:21 | A.OFFVIS_ITS ---
Vital Signs 09/12/23 10:30 Height 5 ft 6 in Weight 229 lb BMI 37.0 BP 193/96 H Blood Pressure Location Lt brachial Position Sitting Pulse 72 Intake Visit Reasons: med check Intake Note: Patient is seen in office for med check. Pt c/o: the pills prescribe gives her stomach aches therefore she stop taking it, she continued taking the powder with relief, bm twice a day, is all done with the antbx Adjunct Instructor Of Women'S Studies Required: Yes Adjunct Instructor Of Women'S Studies Language: Chilean Information Interpreted: non-clinical & clinical Accompanied by: Self / Same As Patient Allergies No Known Allergies [No Known Allergies*] Allergy (Verified 09/12/23 10:25) Medication List - Last Reconciled 09/12/23 by ELENA Fitzgerald- atorvastatin 10 mg PO BEDTIME bisacodyl (Dulcolax (bisacodyl)) 10 mg (2 x 5 mg) PO BEDTIME cholecalciferol (vitamin D3) 50 mcg PO DAILY medroxyprogesterone (Provera) 10 mg PO DAILY 90 days polyethylene glycol 3350 (Miralax) 17 grams PO DAILY polyethylene glycol 3350 (Miralax) 238 grams PO ONCE HPI HPI med check: Details: LAST VISIT: Postprandial abdominal pain in right upper quadrant GERD (gastroesophageal reflux disease) Constipation Epigastric abdominal pain Screen for colon cancer History of Helicobacter pylori infection Plan Patient states that she was taking Senokot on as needed basis, however she felt like it was not helpful. Will start her on MiraLax daily and Dulcolax tablets. Patient is not on any current PPIs will need H pylori testing. States that her PCP send her for H pylori testing. We will treat her empirically again if positive. Patient will go for upper endoscopy and colonoscopy. Will start her on PPI therapy. Currently patient will hold off as she will go for H pylori testing. Patient was encouraged to get it done at [facility] so we can see the results. Patient was encouraged to avoid dietary triggers and late night snacking. Staying upright for minimum 3 hours after meals discussed with patient. She will return in the office in 5 weeks, sooner on as needed basis. Patient is agreeable to this plan and verbalizes understanding of instructions. She was given the opportunity to ask questions and all questions answered. ? Thank you for allowing me to participate in her care Orders Orders Lipase 08/09/23 R10.9 TSH reflex Free T4 08/09/23 K59.00 Liver Panel 08/09/23 R74.01 Vitamin D 25-OH (D2 and D3) 08/09/23 E55.9 Vitamin B12 and Folate 08/09/23 R19.7 Medications New polyethylene glycol 3350 (Miralax) 17 grams PO DAILY 510 grams 2RF bisacodyl (Dulcolax (bisacodyl)) 10 mg (2 x 5 mg) PO BEDTIME 180 tabs 4RF TODAY'S VISIT: Patient is here today for follow-up. Patient came back positive for H pylori again when tested by her PCP and was placed on 2nd round of antibiotics. Patient continues to have epigastric discomfort postprandially and occasional dyspepsia. Patient denies any nausea or vomiting. Admits to be feeling better. Not on any PPI at this time. We will retest in the office today. Patient denies melena, hematochezia, unintentional weight loss or ribbon like stools. Patient will be sent to go for colonoscopy. Never had colonoscopy in the past. Denies any family history of CRC. Denies history of sleep apnea. Not on any anticoagulation medication. Patient denies any infectious diseases in the past or present. 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 Female Reproductive History Menstrual Age of Menarche: 13 Review of Systems Const Denies weight gain and Denies weight loss ENT Reports no additional complaints, Denies dysphagia and Denies odynophagia Card Reports no additional complaints Resp Reports no additional complaints GI Denies abdominal pain, Denies belching, Denies melena, Denies bloating, Denies change in bowel habits, Denies dysphagia, Denies excessive flatus, Denies dyspepsia, Reports heartburn, Denies diarrhea, Denies loose stools, Denies nausea, Denies odynophagia and Denies vomiting Reports no additional complaints Musc Reports no additional complaints Neuro Reports no additional complaints Psych Reports no additional complaints Endo Reports no additional complaints Physical Exam Vital Signs: Last Vital Signs Pulse 72 09/12/23 10:30 BP 193/96 H 09/12/23 10:30 BMI result Body Mass Index 37.0 Const General: healthy appearing and no acute distress Nutritional Appearance: obese Orientation/consciousness: patient oriented x3 Resp Effort & Inspection: normal respiratory effort, able to speak in complete sentences, no tracheal deviation and symmetric chest movement Auscultation: clear to auscultation bilaterally Cardio Rate: regular rate GI Inspection: Yes normal to inspection, No distended and Yes obesity Palpation (GI): Soft to palpation, not firm, nontender and No hepatosplenomegaly present Auscultation: normal bowel sounds General: Yes no CVA tenderness Back/Spine/Pelvis Back: no CVA tenderness Skin General skin exam: elasticity normal, turgor normal and dry skin Neuro General: patient oriented x3 Psych Appearance: grossly normal Mental Status: mental status grossly normal Results Reviewed Results Reviewed: Laboratory Tests 04/27/23 08/09/23 14:22 08:59 Lipase 16 Vitamin B12 656 25-OH Vitamin D Total 26 L Folate 6.7 TSH 1.45 H. pylori Breath Test Positive Assessment & Plan Assessment & Plan (1) Screen for colon cancer: Code(s): Z12.11 - Encounter for screening for malignant neoplasm of colon (2) Postprandial abdominal pain in right upper quadrant: Code(s): R10.11 - Right upper quadrant pain (3) GERD (gastroesophageal reflux disease): Code(s): K21.9 - Gastro-esophageal reflux disease without esophagitis Qualifiers: Esophagitis presence: esophagitis presence not specified Qualified Code(s): K21.9 - Gastro-esophageal reflux disease without esophagitis (4) Constipation: Code(s): K59.00 - Constipation, unspecified Qualifiers: Constipation type: slow transit constipation Qualified Code(s): K59.01 - Slow transit constipation (5) Epigastric abdominal pain: Code(s): R10.13 - Epigastric pain (6) History of Helicobacter pylori infection: Code(s): Z86.19 - Personal history of other infectious and parasitic diseases Plan Will retest for H pylori in the office today and will treat empirically if positive. Patient failed two treatments already. Currently she is feeling better. Not on PPI and will start her on pantoprazole 20 mg daily. Continue avoiding dietary triggers in late night snacking. Patient will be sent for upper endoscopy to rule out gastritis, esophagitis, duodenitis, [place]'s, H pylori. Patient will be sent for colonoscopy. No issues with anesthesia in the past. No history of sleep apnea. Not on any anticoagulation medication. Moving her bowels better. What to expect before during and after procedure di scussed with patient. Patient is agreeable to this plan and verbalizes understanding of instructions. She was given the opportunity to ask questions and all questions answered. Thank you for allowing me to participate in her care Orders: Orders H Pylori Breath Test 09/12/23 K21.9 - Gastro-esophageal reflux disease without esophagitis Medications: New pantoprazole 20 mg PO DAILY 90 tabs 1RF polyethylene glycol 3350 (Miralax) As directed by gastroenterology department at [facility] 238 grams PO ONCE 238 grams 0RF Z12.11 - Encounter for screening for malignant neoplasm of colon Coding Level of Care Code Est Pt Level 4 (76524) Diagnoses Screen for colon cancer Z12.11 Postprandial abdominal pain in right upper quadrant R10.11 Gastroesophageal reflux disease, unspecified whether esophagitis present K21.9 Esophagitis presence: esophagitis presence not specified Slow transit constipation K59.01 Constipation type: slow transit constipation Epigastric abdominal pain R10.13 History of Helicobacter pylori infection Z86.19 Time Spent (min) 35 Comment 25 minutes spent with patient and additional 10 minutes spent reviewing her records
[2023-09-12 10:30] VITALS: BP 193/96; PULSE 72; BMI 37.0
== END 2023-09-12 11:38 | disposition home or self-care (01) ==
PROVIDERS: PCP Registered Nurse; Visit Provider Nurse Practitioner Family
DX: Z12.11 Encounter for screening for malignant neoplasm of colon (principal); R10.11 Right upper quadrant pain; K21.9 Gastro-esophageal reflux disease without esophagitis; K59.01 Slow transit constipation; R10.13 Epigastric pain; Z86.19 Personal history of other infectious and parasitic diseases; Z01.818 Encounter for other preprocedural examination
CPT/HCPCS: 99214

== ENCOUNTER 2023-09-12 10:13 | Outpatient (REF) | payer MEDICAID, SELFPAY ==
[2023-09-14 14:47] LABS: H Pylori Breath Test Positive (Negative)
== END 2023-09-12 10:14 | disposition home or self-care (01) ==
LOC: HO.LNP 10:13
PROVIDERS: PCP Registered Nurse; Visit Provider Nurse Practitioner Family
DX: K21.9 Gastro-esophageal reflux disease without esophagitis (principal); R10.11 Right upper quadrant pain
CPT/HCPCS: 83013; 99212

== ENCOUNTER 2023-09-27 09:26 | Outpatient (AMB) | payer MEDICAID, SELFPAY ==
--- NOTE | 2023-09-27 09:41 | MHC.OFFVIS ---
Vital Signs 09/27/23 09:45 Height 5 ft 6 in Weight 227 lb 1.218 oz BMI 36.6 BP 130/82 Intake Visit Reasons: EMB results Airways Operations Specialist Required: Yes Airways Operations Specialist Language: Lead Advisor Name: Anna BARR Information Interpreted: non-clinical & clinical Accompanied by: Self / Same As Patient Allergies No Known Allergies [No Known Allergies*] Allergy (Verified 09/27/23 09:47) Post menopausal: Yes HPI Comments Details: The patient is presenting after endometrial biopsy. The patient has no complaints, no vaginal bleeding, no feverishness chills or abdominal pain. The endometrial biopsy pathology report showed the following: Endometrium, biopsy: Superficial fragments of benign proliferative endometrium, and benign endocervical glandular epithelium; no atypia or carcinoma The patient is on Provera 10 mg p.o. q.d. 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 Discussed with the patient the sensitivity, specificity, positive and negative predictive value, of endometrial biopsy in detecting endometrial pathology including but not limited to endometrial hyperplasia, cancer and other pathology; in addition discussed the patient the pathology of the endometrium in post menopause is associated with an increase in the risk of endometrial hyperplasia and malignancy in patient with preferred of endometrial pathology in menopause. Recommended to the patient progesterone treatment , levo norgestrel IUD for p.o. progestins in addition to repeat endometrial biopsy every 3 months for a year. All pros and cons, risks and benefits of each were discussed with the patient. The patient decided to continue on Provera daily, Provera 10 mg p.o. daily prescription refilled. In addition , recommended repeat endometrial biopsy in 3 months. Instructed the patient to call in case is vaginal bleeding bleeding recurs, schedule endometrial biopsy in 3 months All questions answered and the patient verbalized understanding and agreed with the plan. Medications: Refilled medroxyprogesterone (Provera) start Provera 1 tablet daily from day 15-24 cyclically every months, day 1 being 1st day of menses 10 mg PO DAILY 90 days 90 tabs 1RF Coding Level of Care Code Est Pt Level 3 (38368) Diagnoses Postmenopausal bleeding N95.0
[2023-09-27 09:45] VITALS: BP 130/82; BMI 36.6
== END 2023-09-27 11:58 | disposition home or self-care (01) ==
LOC: HO.HWS 09:26
PROVIDERS: PCP Registered Nurse; Visit Provider Obstetrics & Gynecology
DX: N95.0 Postmenopausal bleeding (principal)
CPT/HCPCS: 99213

== ENCOUNTER → 2023-09-27 09:26 | Outpatient (BNVA) | payer MEDICAID, SELFPAY | PROVIDERS: PCP Registered Nurse; Visit Provider Obstetrics & Gynecology | DX: N95.0 Postmenopausal bleeding (principal) | CPT/HCPCS: 99212 ==

== ENCOUNTER 2023-11-28 10:39 | Outpatient (AMB) | payer MEDICAID, SELFPAY ==
--- NOTE | 2023-11-28 10:47 | MHC.OFFVIS ---
Vital Signs 11/28/23 10:54 Height 5 ft 6 in Weight 227 lb 8.273 oz BMI 36.7 BP 136/80 Blood Pressure Location Rt brachial Position Sitting Pulse 78 Pulse Source Pulse Oximeter Pulse Oximetry (%) 97 Oxygen Delivery Method Room Air Intake Visit Reasons: H pylori follow up Intake Note: Tawana presents in office today for a scheduled FUV. CC; Tawana is here to discuss the results of her H. Pylori test. Pt denies any new concerns or sx since their last visit. Product Marketing Executive Required: Yes Product Marketing Executive Services: Product Marketing Executive Offered & Declined Accompanied by: Family/Other Allergies No Known Allergies [No Known Allergies*] Allergy (Verified 11/28/23 10:48) HPI HPI H pylori follow up: Details: LAST VISIT Screen for colon cancer Postprandial abdominal pain in right upper quadrant GERD (gastroesophageal reflux disease) Constipation Epigastric abdominal pain History of Helicobacter pylori infection Plan Will retest for H pylori in the office today and will treat empirically if positive. Patient failed two treatments already. Currently she is feeling better. Not on PPI and will start her on pantoprazole 20 mg daily. Continue avoiding dietary triggers in late night snacking. Patient will be sent for upper endoscopy to rule out gastritis, esophagitis, duodenitis, [place]'s, H pylori. Patient will be sent for colonoscopy. No issues with anesthesia in the past. No history of sleep apnea. Not on any anticoagulation medication. Moving her bowels better. What to expect before during and after procedure discussed with patient. Patient is agreeable to this plan and verbalizes understanding of instructions. She was given the opportunity to ask questions and all questions answered. ? Thank you for allowing me to participate in her care Orders Orders H Pylori Breath Test 09/12/23 K21.9 Medications New pantoprazole 20 mg PO DAILY 90 tabs 1RF polyethylene glycol 3350 (Miralax) As directed by gastroenterology department at [facility] 238 grams PO ONCE 238 grams 0RF Z12.11 TODAY'S VISIT Patient is here today for follow-up. Patient is accompanied by her . Per patient's request patient is will be interpreting. Refusal to use visual inspector paperwork signed. Patient reports that she has been feeling well. Denies any dyspepsia, dysphagia or odynophagia. Patient states that her symptoms of acid reflux have improved. Patient was diagnosed with H pylori in the past and treated last in September. Patient reports that she finish all of her treatment. Patient has appointment for upper endoscopy and colonoscopy made already as well as follow-up appointment. Currently she is taking pantoprazole daily and reports that her symptoms of acid reflux are suppressed. Patient denies any nausea or vomiting. 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 Female Reproductive History Menstrual Age of Menarche: 13 Review of Systems Const Denies weight gain and Denies weight loss ENT Reports no additional complaints, Denies dysphagia and Denies odynophagia Card Reports no additional complaints Resp Reports no additional complaints GI Denies abdominal pain, Denies belching, Denies melena, Denies bloating, Denies change in bowel habits, Denies dysphagia, Denies excessive flatus, Denies dyspepsia, Denies heartburn, Denies diarrhea, Denies loose stools, Denies nausea, Denies odynophagia and Denies vomiting Reports no additional complaints Musc Reports no additional complaints Neuro Reports no additional complaints Psych Reports no additional complaints Endo Reports no additional complaints Physical Exam Vital Signs: Last Vital Signs Pulse 78 11/28/23 10:54 BP 136/80 11/28/23 10:54 Pulse Ox 97 11/28/23 10:54 Oxygen Delivery Method Room Air 11/28/23 10:54 BMI result Body Mass Index 36.7 Const General: healthy appearing and no acute distress Nutritional Appearance: obese Orientation/consciousness: patient oriented x3 Resp Effort & Inspection: normal respiratory effort, able to speak in complete sentences, no tracheal deviation and symmetric chest movement Auscultation: clear to auscultation bilaterally Cardio Rate: regular rate GI Inspection: Yes normal to inspection, No distended and Yes obesity Palpation (GI): Soft to palpation, not firm, nontender and No hepatosplenomegaly present Auscultation: normal bowel sounds General: Yes no CVA tenderness Back/Spine/Pelvis Back: no CVA tenderness Skin General skin exam: elasticity normal, turgor normal and dry skin Neuro General: patient oriented x3 Psych Appearance: grossly normal Mental Status: mental status grossly normal Assessment & Plan Assessment & Plan (1) Screen for colon cancer: Code(s): Z12.11 - Encounter for screening for malignant neoplasm of colon (2) Postprandial abdominal pain in right upper quadrant: Code(s): R10.11 - Right upper quadrant pain (3) GERD (gastroesophageal reflux disease): Code(s): K21.9 - Gastro-esophageal reflux disease without esophagitis Qualifiers: Esophagitis presence: esophagitis presence not specified Qualified Code(s): K21.9 - Gastro-esophageal reflux disease without esophagitis (4) Constipation: Code(s): K59.00 - Constipation, unspecified Qualifiers: Constipation type: slow transit constipation Qualified Code(s): K59.01 - Slow transit constipation (5) Epigastric abdominal pain: Code(s): R10.13 - Epigastric pain (6) History of Helicobacter pylori infection: Code(s): Z86.19 - Personal history of other infectious and parasitic diseases Plan Patient will hold pantoprazole for couple weeks until she will return to the office to retest. She can take famotidine once or twice a day as needed. Stop famotidine 24-48 hours before testing. NPO for minimum 1 hour before testing. Patient has appointment scheduled for upper endoscopy and colonoscopy. Patient is aware of bowel prep day before procedure. Clear liquid diet day before procedure as well as good bowel prep stressed with patient.. I will see patient after the procedure, sooner on as needed basis. She is agreeable to this plan and verbalizes understanding of instructions. She was given the opportunity to ask questions and all questions answered. Thank you for allowing me to participate in her care Orders: Orders H Pylori Breath Test 11/28/23 K21.9 - Gastro-esophageal reflux disease without esophagitis Medications: New famotidine (Pepcid) 20 mg PO BID 30 tabs 0RF K29.70 - Gastritis, unspecified, without bleeding Discontinued bismuth subcit [id number] 140-125-125 mg (Pylera) Discontinued Reason: Patient Completed Course 3 caps PO QID 14 days 168 caps 0RF B96.81 - Helicobacter pylori [H. pylori] as the cause of diseases classified elsewhere, K29.70 - Gastritis, unspecified, without bleeding Coding Level of Care Code Est Pt Level 3 (30372) Diagnoses Screen for colon cancer Z12.11 Postprandial abdominal pain in right upper quadrant R10.11 Gastroesophageal reflux disease, unspecified whether esophagitis present K21.9 Esophagitis presence: esophagitis presence not specified Slow transit constipation K59.01 Constipation type: slow transit constipation Epigastric abdominal pain R10.13 History of Helicobacter pylori infection Z86.19 Time Spent (min) 30 Comment 20 minutes spent with patient and additional 10 minutes spent reviewing her records
[2023-11-28 10:54] VITALS: BP 136/80; PULSE 78; O2SAT 97; BMI 36.7
== END 2023-11-28 11:31 | disposition home or self-care (01) ==
PROVIDERS: PCP Registered Nurse; Visit Provider Nurse Practitioner Family
DX: Z12.11 Encounter for screening for malignant neoplasm of colon (principal); R10.11 Right upper quadrant pain; K21.9 Gastro-esophageal reflux disease without esophagitis; K59.01 Slow transit constipation; R10.13 Epigastric pain; Z86.19 Personal history of other infectious and parasitic diseases; Z01.818 Encounter for other preprocedural examination
CPT/HCPCS: 99213

== ENCOUNTER → 2023-11-28 10:39 | Outpatient (BNVA) | payer MEDICAID, SELFPAY | PROVIDERS: PCP Registered Nurse; Visit Provider Nurse Practitioner Family | DX: K21.9 Gastro-esophageal reflux disease without esophagitis (principal); R10.11 Right upper quadrant pain; K59.01 Slow transit constipation; R10.13 Epigastric pain; K29.70 Gastritis, unspecified, without bleeding; B96.81 Helicobacter pylori [H. pylori] as the cause of diseases classified elsewhere; Z86.19 Personal history of other infectious and parasitic diseases; Z79.899 Other long term (current) drug therapy | CPT/HCPCS: 99212 ==

== ENCOUNTER 2023-12-03 12:00 | Outpatient (RCR) | payer MEDICAID, SELFPAY ==
--- NOTE | 2023-11-08 14:56 | MHC.PT.EP ---
[facility] Office [place] Office [place] Office [address] Ana Chen [address] [phone] F: [phone] F: [phone] F: [phone] F: [phone] Physical Therapy Plan of Care Date of Evaluation: 11/08/23 Date of Surgery: N/A Diagnosis: OA of left knee (RL) Assessment: pt is a 53 y/o female presenting to physical therapy w/ referring diagnosis of OA of left knee. While pt does have xray (+) OA she does present w/ some soft tissue signs including frequent clicking and instability of the L knee. She may benefit from an MRI to assess meniscal and ligamentous integrity. Impairments include pain, decreased range of motion, decreased strength, impaired functional mobility, impaired postural awareness, and altered ambulation mechanics. pt is a fair candidate for skilled PT due to age, potential remediation of impairments, typical disease/condition progression and prognosis, comorbidities, and motivation. pt would benefit from skilled PT intervention to provide a tailored strengthening and stretching exercise program, functional training, gait training, postural re-training, neuromuscular re-education, modalities as needed for pain, equipment safety demonstration. Frequency and Duration: The patient will be seen 2x/wk for 4 wks Short Term Goals: pt will be I w/ HEP to promote self-management of condition. pt will improve L quad strength by 1 MMT grade to promote ease in sit<>stand transfers. Service Secretary Goals: pt will report a statistically significant improvement in self-reported outcome measure, LEFI, to promote return to PLOF. pt will ascend/descend 12 stairs w/ <3/10 L knee pain using reciprocal pattern to promote ease in accessing primary living spaces. Treatment Plan: Modalities to reduce pain, spasms and effusion. Manual therapy to restore motion and function. Therapeutic exercise to improve strength and flexibility. Neuromuscular re-education for posture and balance. Therapeutic activities to return to functional activities of daily living. Electronically signed by: Tonja Kevin PT, DPT Please sign and return to therapist. Thank you for your referral.
--- NOTE | 2024-01-02 14:54 | MHC.PT.DC ---
[facility] [place] Office [place] Office [place] Office [address] Ana Chen 140 [facility] [phone] F: [phone] F: [phone] F: [phone] F: [phone] Physical Therapy Discharge Report Diagnosis: OA of left knee (RL) Date of Surgery: N/A Date of Evaluation: 11/08/23 Date of Discharge: 01/02/24 Treatments to Date: 5 Cancellations to Date: 1 No Shows to Date: 0 Discharge Status: Patient Elected to Stop Discharge Summary: Pt called to D/C herself. Said PT is not helping. Electronically signed by: Tonja Wilson, PT, DPT Please sign and return to therapist. Thank you for your referral.
== END 2024-01-02 14:55 | disposition home or self-care (01) ==
LOC: HO.PT 12:00
PROVIDERS: PCP Registered Nurse; Visit Provider Registered Nurse
DX: M17.12 Unilateral primary osteoarthritis, left knee (principal)
CPT/HCPCS: 97110; 97116; 97162

== ENCOUNTER → 2023-12-14 13:53 | Outpatient (BNVA) | payer MEDICAID, SELFPAY | PROVIDERS: PCP Registered Nurse; Visit Provider Nurse Practitioner Family ==

== ENCOUNTER 2023-12-14 14:31 | Outpatient (REF) | payer MEDICAID, SELFPAY ==
[2023-12-19 15:24] LABS: H Pylori Breath Test Positive (Negative)
== END 2023-12-14 14:32 | disposition home or self-care (01) ==
LOC: HO.LNP 14:31
PROVIDERS: Visit Provider Nurse Practitioner Family
DX: K21.9 Gastro-esophageal reflux disease without esophagitis (principal)
CPT/HCPCS: 83013

== ENCOUNTER 2024-02-06 10:02 | Outpatient (REF) | payer MEDICAID, SELFPAY | END 2024-02-06 10:03 | disposition home or self-care (01) | LOC: HO.LNP 10:02 | PROVIDERS: PCP Registered Nurse; Visit Provider Obstetrics & Gynecology | DX: N95.0 Postmenopausal bleeding (principal) | CPT/HCPCS: 58100; 88305 ==

== ENCOUNTER 2024-02-06 10:02 | Outpatient (AMB) | payer MEDICAID, SELFPAY ==
--- OUTSIDE RECORDS SUMMARY | 2024-02-06 10:04 | XMS_ITS | Continuity of Care Document ---
Author Organization [facility] Address [address] [place] [address]- Care Team Providers Care President And Chief Executive Officer Name Role Phone Tushar YAO, Yessenia Cruz Primary Care Physicia n Encounter [facility] Date(s): 01/02/24 - 02/01/24 [facility] [address] [place] [address]- Attending Physician: Hoang Chavez Admitting Physician: AdmtrHoang Referring Physician: Admtr, Ar8 Allergies, Adverse Reactions, Alerts No Known Allergies Medications Amlodipine By Mouth, Daily, 0 Refills, Maintenance, 12/04/22 16:15:00 EDT, Partial fill upon patient request if the prescription is for a schedule II opioid drug. Start Date: 12/04/22 Status: Ordered chlorthalidone 25 mg oral tablet 25 Unknown, Oral, 1 Refill(s), Take 1 tablet (25 mg) by mouth Once per day., Refills 0, 09/25/23 20:00:00 EDT, Partial fill upon patient request if the prescription is for a schedule II opioid drug. Start Date: 09/25/23 Status: Ordered omeprazole 20 mg oral delayed release tablet 0 Refill(s), Take 1 tab po BID for 14 days., 0 Refills, 08/16/23 20:00:00 EDT, Partial fill upon patient request if the prescription is for a schedule II opioid drug. Start Date: 08/16/23 Status: Ordered terbinafine 250 mg oral tablet 250 Unknown, Oral, 0 Refill(s), Take 1 tablet (250 mg) by mouth in the morning. (Foot fungal infx),0 Refills, 08/14/23 20:00:00 EDT, Partial fill upon patient request if the prescription is for a schedule II opioid drug. Start Date: 08/14/23 Status: Ordered Zaditor 0.025% ophthalmic solution 1 Refill(s), One drop to eyes bid prn allergies, 0 Refills, 08/14/23 20:00:00 EDT, Partial fill upon patient request if the prescription is for a schedule II opioid drug. Start Date: 08/14/23 Status: Ordered Problem List Condition Confirmation Course Effective Dates Status Health St atus Informant Essential hypertension 1 Confirmed 03/21/18 Active Intracranial aneurysm 2 Confirmed 10/02/22 Active Obese class II Confirmed Active 1Outside Source Comment: Last Assessment & Plan: BP goal < 140/90 mmHg Encouraged to monitor home BP readings Encouraged low salt diet and routine physical activity Start chlorthalidone 25mg daily, reviewed med use and SE 2Outside Source Comment: Overview: 1 mm anuerysm noted previously on MRA, asymptomatic Previous following with [facility] - Dr. Martinez Referral to re-establish care: September 2023 Patient Care team information Care Team Personnel Name: Feliberto LITTLEJOHN, Raúl Germain Position: [facility] Physician - Neurology Member Role: Lifetime Consulting Physician Address: Address: [address] [place] [address] [place] [address]- [place] Name: Yessenia Finley NP Position: Reference Physician Member Role: PCP Address: Address: [address] [place] [address]- Care Team Related Persons Name: GUERDA THORNTON
--- OUTSIDE RECORDS SUMMARY | 2024-02-06 10:04 | XMS_ITS | Continuity of Care Document ---
Author Organization [facility] Address [address] [place] [address]- Care Team Providers Care Plastics Seasoner Operator Name Role Phone Tushar YAO, Yessenia Cruz Primary Care Physicia n [place] [facility] [place]): [place] 12/22/23 [facility] [address], [address] [place] [id number] Attending Physician: Hoang Chavez Admitting Physician: AdmHoang butler Referring Physician: AdmtrHoang Allergies, Adverse Reactions, Alerts No Known Allergies [...] asymptomatic Previous following with [facility] - Dr. Martinez Referral to re-establish care: September 2023 Patient Care team information Care Team Personnel Name: Tushar YAO, Yessenia Cruz Position: Reference Physician Member Role: PCP Address: Address: [address] [place] [address]- Care Team Related Persons Name: GUERDA THORNTON
--- NOTE | 2024-02-06 10:11 | A.OFFVIS_ITS ---
Vital Signs 02/06/24 10:17 Height 5 ft 6 in Weight 227 lb 1.218 oz BMI 36.6 Intake Visit Reasons: EMB Oral Surgery Technician Required: Yes Oral Surgery Technician Language: Export Traffic Department Manager Services: Oral Surgery Technician Present (in person) Oral Surgery Technician Name: Anna BARR Information Interpreted: non-clinical & clinical Tube Cutter: Tube Cutter Present (Anna BARR) Accompanied by: Self / Same As Patient Allergies No Known Allergies [No Known Allergies*] Allergy (Verified 02/06/24 10:17) Post menopausal: Yes HPI Comments Details: Presenting for repeat endometrial biopsy for postmenopausal proliferative endometrium since 02/03. The patient has been on Provera 10 mg p.o. q.d.. The patient reports 2 episodes of bleeding 2 months ago. 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 Female Reproductive History Menstrual Age of Menarche: 13 Review of Systems Const All systems reviewed & are unremarkable except as noted in HPI and below Physical Exam General: Yes no CVA tenderness External Female Exam: normal external appearance and normal appearance of the urethra Speculum Exam - Vagina: normal appearance of the vagina, normal palpation, no lesions and no masses Speculum Exam - Cervix: normal appearance of the cervix, normal palpation, no lesions, no masses and nontender Bimanual exam- vagina & uterus: normal bimanual exam, normal palpation, uterine size normal, normal palpation, uterine shape normal, No Cervical tenderness present and non-tender Bimanual Exam- Adnexa, other: normal adnexae Back/Spine/Pelvis Back: no CVA tenderness Office Procedures Endometrial Biopsy Details: The patient was counseled regarding the indication and benefits of endometrial sampling to rule out endometrial pathology including not limited to endometrial hyperplasia or endometrial cancer and others; The alternatives (Either do nothing vs. hysteroscopy D&C) & the risks were discussed with the patient including but not limited: pain, uterine perforation, bleeding, infection, possible injury to bladder, bowel, ureter, possible need for blood transfusion with all its possible risks. The patient verbalized understanding all questions answered and signed consent. The patient was placed into the dorsal lithotomy position; a speculum was inserted in the vagina. Using aseptic technique for the procedure, the cervix was cleansed with Betadine. The anterior lip of the cervix was grasped with a single tooth tenaculum. The uterus was sounded to 7 cm with a 4 mm Pipelle was used. Tissues samples were obtained and placed in formalin, in a patient labeled container and sent to the pathology department. At the end of the procedure, there was minimal bleeding noted The patient tolerated the procedure well and was discharged in good condition with the following instructions: Nothing in the vagina until the bleeding stops. No sex until the bleeding stops, to call if any of the following occurs: fever (>100.4), flu-like symptoms, abdominal pain, heavy bleeding, four smelling vaginal discharge. The patient was instructed to schedule a Follow up appointment in 2 weeks to discuss pathology results of the biopsy and treatment options. This note was generated with a voice recognition program. Some errors may have been overlooked during the review of this note. Sometimes these errors may affect the content or meaning of a given sentence. [id number] Biopsy Assessment & Plan Assessment & Plan (1) Postmenopausal bleeding: Comment: With proliferative endometrium Code(s): N95.0 - Postmenopausal bleeding Category: Medical Plan: EMB done, see procedure note Orders: Orders AMB Endometrial Biopsy Today N95.0 - Postmenopausal bleeding Coding Level of Care Code Procedure Only Diagnoses Postmenopausal bleeding N95.0 CPT Codes Endometrial Biopsy - CPT: 49320-Oqtehyrndeu Biopsy ([id number])
[2024-02-06 10:17] VITALS: BMI 36.6
== END 2024-02-06 10:26 | disposition home or self-care (01) ==
LOC: HO.HWS 10:02
PROVIDERS: PCP Registered Nurse; Visit Provider Obstetrics & Gynecology
DX: N95.0 Postmenopausal bleeding (principal)
CPT/HCPCS: 58100

== ENCOUNTER 2024-02-21 09:09 | Outpatient (AMB) | payer MEDICAID, SELFPAY ==
--- NOTE | 2024-02-21 09:10 | MHC.OFFVIS ---
Intake Visit Reasons: EMB results Meteorological Aide Required: Yes Meteorological Aide Language: Appeals Writer Services: Meteorological Aide Present (in person) Meteorological Aide Name: Anna BARR Information Interpreted: non-clinical & clinical Allergies No Known Allergies [No Known Allergies*] Allergy (Verified 02/21/24 09:10) Post menopausal: Yes HPI Comments Details: The patient is scheduled tele health visit following her last endometrial biopsy for postmenopausal bleeding and history of proliferative endometrium since 02/03. Complaining of pelvic pain on and off. The patient has been on Provera 10 mg p.o. q.d. The patient reported recent 2 episodes of bleeding 2 months prior to the biopsy. Last EMB was in 08/04 showed proliferative endometrium with no evidence endometrial hyperplasia or malignancy 02/03 and 05/05 both endometrial pathology showed proliferative endometrium Last EMB in 02/04, the pathology showed the following: Endometrium, biopsy: Strips of weakly proliferative endometrial glands and tubal metaplasia; negative for atypia, hyperplasia or malignancy Last co testing in 07/06 was negative Last mammogram was in 09/04 was BI-RADS 1 Last ultrasound 04/05 showed a Posterior uterine myoma 1.2 x 1.1 x 1.2 cm. 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 Female Reproductive History Menstrual Age of Menarche: 13 Review of Systems Const All systems reviewed & are unremarkable except as noted in HPI and below Reports as per HPI and Reports no additional complaints GI Reports no additional complaints Reports no additional complaints Telehealth Telehealth Telehealth Platform: Telephone Location of provider rendering services: practice address Location of patient: address on file Patient Identification confirmed using: Name, : Yes Telehealth method: voice only Patient verbally consented to treatment: Yes Patient verbally consented to billing insurance company: Yes Patient informed of any privacy concerns related to visit: Yes Assessment & Plan Assessment & Plan (1) Postmenopausal bleeding: Comment: Recurrent Proliferative endometrium on provera Uterie myoma Code(s): N95.0 - Postmenopausal bleeding Category: Medical Plan: Discussed with the patient the risk of myosarcoma a very small also discussed with the patient the recurrent pelvic pain and vaginal bleeding Explained to the patient the different options of treatment including but not limited expectant management with p.o. Provera or Mirena IUD and follow-up with pelvic ultrasound periodically, definitive surgical management and others. All pros and cons, risks and benefits of each were discussed with the patient, the patient decided to proceed with definitive surgical treatment. Discussed with the patient the different types of hysterectomies including, vaginal, laparoscopic assisted vaginal, robotic assisted laparoscopic,& abdominal with BSO. All pros, cons, r/b of each approach were discussed the patient including evidence that morbidity is less and recovery is shorter with minimally invasive approaches to hysterectomy. Discussed with the patient the lack of availability of the robot DaVinci robot and/or minimally invasive greens planter specialist at [facility]. Will refer to [facility] minimally invasive 3rd grade teacher surgery for surgical management I spent a total of 20 minutes reviewing the chart, talking to the patient via phone and documenting in the medical record. Coding Level of Care Code Est Pt Level 1 (48702) Diagnoses Postmenopausal bleeding N95.0
== END 2024-02-21 09:56 | disposition home or self-care (01) ==
LOC: HO.HWS 09:09
PROVIDERS: PCP Registered Nurse; Visit Provider Obstetrics & Gynecology
DX: N95.0 Postmenopausal bleeding (principal)

== ENCOUNTER → 2024-02-21 09:09 | Outpatient (BNVA) | payer MEDICAID, SELFPAY | PROVIDERS: PCP Registered Nurse; Visit Provider Obstetrics & Gynecology | DX: N95.0 Postmenopausal bleeding (principal) | CPT/HCPCS: 99211 ==

== ENCOUNTER 2024-10-08 12:27 | Outpatient (REF) | payer MEDICAID, SELFPAY ==
--- OUTSIDE RECORDS SUMMARY | 2024-10-08 13:08 | XMS_ITS | Encounter Summary ---
Author Organization [employer] Address [address] [facility] [address] [place] [address] Care Team Providers Care Jazz Musician Name Role Phone SelwynYessenia medina ELENA Primary Care Provider [phone] Encounter Details Date Type Department Care Team ([facility] st Contact Info) Description 03/24/2024 Orders Only [facility] MED & PEDS [address] [place], [place] [phone] ProviderDunia MD Social History Tobacco Use Types Packs/Day Years Used Date Smoking Tobacco: Never Passive Smoke Exposure: Never Smokeless Tobacco: Never Alcohol Use Standard Drinks/Week Comments Never 0 (1 standard drink = 0.6 oz pur e alcohol) Depression Answer Date Recorded Patient Health Questionnaire-9 Score 2 10/02/2022 Housing Stability Answer Date Recorded What is your housing situation today? I have gordonivelisse sandoval 02/18/[address] you li ve. Do you have problems with any of the following? Pests such as bugs, ants, or mice 02/18/2023 Food Insecurity Answer Date Recorded Within the past 12 months, y ou worried that your food would run out before you got money to buy more: Never True 03/12/2023 Within the past 12 months,th e food you bought just didn't last and you didn't have enough money to get more: Never True Transportation Answer Date Recorded In the past 12 months, has l ack of transportation kept you from medical appts, meetings, work or from getting things needed for daily living? No 03/12/2023 Utilities Answer Date Recorded In the past 12 months, has t he electric, gas, oil or water company threatened to shut off services in your home? No 03/12/2023 Depression Answer Date Recorded Patient Health Questionnaire-2 Score 0 10/02/2022 Comments Unknown Sex and Gender Information Value Date Recorded Sex Assigned at Female 03/13/2022 10:34 AM EDT Legal Sex Female 10:34 AM EDT Gender Identity Female 03/13/2022 10:34 AM EDT Sexual Orientation Choose not to disclose 2023 5:06 AM EDT documented as of this encounter Plan of Treatment Upcoming Encounters Date Type Department Care Team (Late st Contact Info) Description 10/17/2024 2:30 PM EDT Office Visit [facility] MED & PEDS [address] [place], [place] [phone] Yessenia Finley FNP [address] [place] [address] documented as of this encounter Procedures Procedure Name Priority Date/Time Associated Diagnosis Comments HM PAP/HPV Routine 06/14/2022 3:20 PM EST documented in this encounter Results * HM PAP/HPV (06/14/2022 3:20 PM EST) us Historical Provider HEALTH MAINTENANCE Final Result documented in this encounter Visit Diagnoses Not on filedocumented in this encounter Additional Health Concerns Assessment Noted Time PHQ-9 Depression Total Score: 2 10/03/19 23 1:42 PM EDT documented as of this encounter Care Teams Jazz Musician Relationship Specialty Start Date End Date Yessenia Finley FNP [address] [place] [id number] PCP - General Family Medicine 07/13/22 documented as of this encounter
== END 2024-10-08 12:28 | disposition home or self-care (01) ==
LOC: HO.MAMMO 12:27
PROVIDERS: PCP Registered Nurse; Visit Provider Registered Nurse
DX: Z12.31 Encounter for screening mammogram for malignant neoplasm of breast (principal)
CPT/HCPCS: 77063; 77067

== ENCOUNTER → 2024-10-08 12:30 | Outpatient (BNV) | payer MEDICAID, SELFPAY | PROVIDERS: PCP Registered Nurse; Visit Provider Internal Medicine | DX: Z12.31 Encounter for screening mammogram for malignant neoplasm of breast (principal) | CPT/HCPCS: 77063; 77067 ==

== ENCOUNTER 2024-10-28 14:07 | Outpatient (AMB) | payer MEDICAID, SELFPAY ==
--- NOTE | 2024-10-28 14:11 | A.OFFVIS_ITS ---
Intake Visit Reasons: PRN follow up for right leg pain Intake Note: Patient presents for right leg pain. Patient last seen in 2022. Patient has pain that feels like something is stuck/blocked . Pain started about a month ago. States she has some discoloration on her foot and ankle as well. Accompanied by: Self / Same As Patient Allergies No Known Allergies [No Known Allergies*] Allergy (Verified 10/28/24 14:13) HPI HPI PRN follow up for right leg pain: Details: Tawana, a pleasant 54yo St Helenian speaking only female patient, is presenting today for concerns of new right lower extremity pain. 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 Complaints include pain over varicosities, swelling of lower extremities, cramping, fatigue, and heaviness of the lower extremities. It has been affecting their daily activities including walking, standing, and physical activity. It is noted more so in the right leg. She has had a right SSV RFA in Apr 2022; she states she had similar symptoms then as she is having now. She states she felt much better after the procedure but started having symptoms again about a month ago. She is not a diabetic and is a nonsmoker. Patient has had a right SSV RFA on 04/14/[address] Navarro Patient denies any history of DVT/ PE. Patient denies any history of phlebitis. Trial of compression includes - Nothing They now present for vascular evaluation regarding their varicose veins. 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 Female Reproductive History Menstrual Age of Menarche: 13 Review of Systems Const Reports as per HPI and Denies weakness ENT Reports Normal hearing present and Denies dizziness Card Reports as per HPI, Denies chest pain, Denies chest pain at rest, Denies chest pain with activity, Denies dyspnea and Denies dyspnea on exertion Resp Reports as per HPI, Denies cough, Denies dyspnea and Denies dyspnea on exertion GI Reports as per HPI, Denies abdominal pain, Denies nausea and Denies vomiting Musc Denies numbness Skin/Breast Reports as per HPI, Denies erythema and Denies wounds Neuro Reports Normal hearing present, Denies dizziness, Denies numbness, Denies Sensory deficit (Neuro) and Denies weakness Psych Reports no additional complaints Endo Reports no additional complaints Physical Exam Const General: healthy appearing and no acute distress Orientation/consciousness: patient oriented x3 HEENT Head: Yes normal to inspection Ears: hearing grossly normal bilaterally Mouth: Normal oral and palatal mucosa present Resp Effort & Inspection: normal respiratory effort and able to speak in complete sentences Auscultation: clear to auscultation bilaterally Cardio Jugular venous distension: no JVD Rate: regular rate Rhythm: regular rhythm Heart sounds: S1 normal heart sound present and S2 normal heart sound present Bruits: no abdominal aortic bruits, no carotid bruits, no femoral bruits and no renal bruits Peripheral pulses: Peripheral pulses 2+ throughout GI Inspection: Yes normal to inspection Palpation (GI): No Abdominal aortic bruit present Skin General skin exam: no rashes or lesions noted Wounds: no wounds Hair: normal Neuro General: patient oriented x3 Cranial nerves: Yes Normal hearing present Cognition (Neuro): normal cognition Gait exam (Neuro): Normal gait present Motor exam (neuro): 5/5 motor strength present throughout Sensory Exam: No Sensory deficit (Neuro) Extrem Other: Right lower extremity: telangietasia noted around the knee. +1 pitting edema noted. Discoloration noted around the ankle. Palpable DP pulse. Left lower extremity: smaller amount of telangietasia noted around the ankle. +1 pitting edema noted. Palpable DP pulse. CEAP: C - 4 E - primary A - superficial P - reflux General: Yes normal to inspection, Yes full ROM, Yes capillary refill normal and Yes normal gait Assessment & Plan Assessment & Plan (1) Varicose veins of right lower extremity with inflammation: Comment: 04/14/2022 - right small saphenous vein radiofrequency ablation Code(s): I83.11 - Varicose veins of right lower extremity with inflammation Category: Medical Plan: Tawana is presenting today for concerns of new right lower extremity pain. She is s/p right SSV RFA in Apr 2022. She states she had relief after that procedure but started to have discomfort and swelling about 1m ago. In short, the patient has evidence of venous insufficiency. I have discussed the pathophysiology with the patient. In addition I have provided informational material regarding venous disease to the patient. We have discussed conservative measures including compression, elevation, and exercise. I have also provided a handout regarding appropriate use of compression stockings and where to purchase good compression stockings as well. I have taken the liberty of ordering venous insufficiency testing with the patient. They will follow up with me after testing. The patient had an opportunity to ask questions regarding the treatment plan. All questions were answered. Imaging studies, laboratory studies and physical exam results were discussed and reviewed in detail. No major barriers to understanding were identified. The patient expressed understanding and agreement with the above treatment plan. The patient is aware they should contact our office by phone for worsening of the current condition or the appearance of new symptoms. Thank you for allowing me to participate in the vascular care of this patient. If you have any questions or concerns regarding the treatment for the above condition please do not hesitate to contact me. The office telephone contact is [phone]. This note is constructed using voice recognition software. While every effort has been made to ensure accuracy, slitter and rewinder machine operator errors may have been included. Thank you for allowing me to participate in the care of your patient. Yours sincerely, CRISTINA López Orders: Orders US venous duplex LE BI 1 Week I83.11 - Varicose veins of right lower extremity with inflammation Coding Level of Care Code Est Pt Level 4 (80973) Diagnoses Varicose veins of right lower extremity with inflammation I83.11
--- OUTSIDE RECORDS SUMMARY | 2024-10-28 16:18 | XMS_ITS | Encounter Summary ---
Author Organization [employer] Address [address] [facility] [address] [place] [address] Care Team Providers Care Firearms Specialist Name Role Phone SelwynYessenia medina ELENA Primary Care Provider [phone] Encounter Details Date Type Department Care Team ([facility] st Contact Info) Description 03/24/2024 Orders Only [facility] MED & PEDS [address] [place], [place] [phone] ProviderDunia MD Social History Tobacco Use Types [...] Care Team (Late st Contact Info) Description 01/16/2025 2:30 PM EDT Office Visit [facility] MED & PEDS [address] [place], [place] [phone] Yessenia Finley FNP [address] [place] [address] documented as of this encounter Procedures Procedure [...] documented as of this encounter Care Teams Firearms Specialist Relationship Specialty Start Date End Date Yessenia Finley FNP [address] [place] [id number] PCP - General Family Medicine 07/13/22 documented as of this encounter
== END 2024-10-28 14:22 | disposition home or self-care (01) ==
LOC: HO.HVS 14:07
PROVIDERS: PCP Registered Nurse; Visit Provider Physician Assistant Surgical
DX: I83.11 Varicose veins of right lower extremity with inflammation (principal)
CPT/HCPCS: 99214

== ENCOUNTER → 2024-10-28 14:07 | Outpatient (BNVA) | payer MEDICAID, SELFPAY | PROVIDERS: PCP Registered Nurse; Visit Provider Physician Assistant Surgical | DX: I83.11 Varicose veins of right lower extremity with inflammation (principal) | CPT/HCPCS: 99212 ==

== ENCOUNTER 2024-11-20 08:13 | Outpatient (REF) | payer MEDICAID, SELFPAY ==
--- NOTE | ~2024-11-20 | US_ITS ---
EXAMINATION: US LOWER EXTREMITY VENOUS (REFLUX EXAM), BILATERAL CLINICAL INFORMATION: Varices. COMPARISON: February 14, 2022. Correlated to prior DVT ultrasound dated April 17, 2022. TECHNIQUE: Color flow triplex imaging and compression Doppler was performed to evaluate both the deep and the superficial systems bilaterally. To evaluate the superficial system, the examination was performed in the upright position. Color-flow Doppler ultrasound and compression ultrasound were utilized. In addition, maneuvers were utilized to demonstrate reflux. FINDINGS: 1. DEEP VENOUS ULTRASOUND OF THE RIGHT LOWER EXTREMITY: Common Femoral Vein: Compressible, normal respiratory variation and augmented flow. Femoral Vein: Compressible, normal color flow and augmentation. Popliteal Vein: Compressible, normal augmentation. Deep Reflux: There is no evidence of reflux in the deep system in either the common femoral vein, superficial femoral or the popliteal vein. There is no evidence of a Jara's cyst. 2. SUPERFICIAL ULTRASOUND WITH DOPPLER OF RIGHT LOWER EXTREMITY: GREAT SAPHENOUS VEIN: Saphenofemoral Junction: 0.6 cm; Reflux: 0 ms Proximal Thigh: 0.5 cm; Reflux: 0 ms Mid Thigh: 0.3 cm; Reflux: 0 ms Distal Thigh: 0.3 cm; Reflux: 0 ms At Knee: 0.3 cm; Reflux: 2296 ms Proximal Calf: 0.5 cm; Reflux: 2304 ms Mid Calf: 0.2 cm; Reflux: 0 ms Distal Calf: 0.3 cm; Reflux: 0 ms DUPLICATED MEDIAL GREAT SAPHENOUS VEIN: Diameter: None imaged Reflux: NA DUPLICATED LATERAL GREAT SAPHENOUS VEIN: Diameter: 0.2-0.4 cm. Reflux: NA SMALL SAPHENOUS VEIN: Saphenopopliteal Junction: 0.8 cm; Reflux: 0 ms Proximal: 0.3 cm; Reflux: 0 ms Distal: 0.2 cm; Reflux: 0 ms VEIN OF GIACOMINI: Size: NA Reflux: NA PERFORATORS: Location: Proximal calf. Size: 0.4 cm. Reflux: 2224 ms. VARICOSITIES: Location: Proximal calf. Size: 0.3 cm. Reflux: NA 3. DEEP VENOUS ULTRASOUND OF THE LEFT LOWER EXTREMITY: Common Femoral Vein: Compressible, normal respiratory variation and augmented flow. Femoral Vein: Compressible, normal color flow and augmentation. Popliteal Vein: Compressible, normal augmentation. Deep Reflux: There is no evidence of reflux in the deep system in either the common femoral vein, superficial femoral or the popliteal vein. There is no evidence of a Jara's cyst. 4. SUPERFICIAL ULTRASOUND WITH DOPPLER OF LEFT LOWER EXTREMITY: GREAT SAPHENOUS VEIN: Saphenofemoral Junction: 1.1 cm; Reflux: 0 ms Proximal Thigh: 0.4 cm; Reflux: 0 ms Mid Thigh: 0.5 cm; Reflux: 0 ms Distal Thigh: 0.3 cm; Reflux: 0 ms At Knee: 0.3 cm; Reflux: 0 ms Proximal Calf: 0.4 cm; Reflux: 0 ms Mid Calf: 0.2 cm; Reflux: 0 ms Distal Calf: 0.2 cm; Reflux: 0 ms DUPLICATED MEDIAL GREAT SAPHENOUS VEIN: Diameter: None imaged Reflux: NA DUPLICATED LATERAL GREAT SAPHENOUS VEIN: Diameter: 0.3 cm. Reflux: NA SMALL SAPHENOUS VEIN: Saphenopopliteal Junction: 0.3 cm; Reflux: 0 ms Proximal: 0.2 cm; Reflux: 0 ms Distal: 0.2 cm; Reflux: 0 ms VEIN OF GIACOMINI: Size: NA Reflux: NA PERFORATORS: Location: Mid calf. Size: 0.3 cm. Reflux: NA VARICOSITIES: Location: Small saphenous vein proximal segment. Size: 0.3 cm. Reflux: NA US/US venous duplex LE BI IMPRESSION: Right: Venous insufficiency, great saphenous vein from the knee to below the knee. Perforators with reflux in the proximal calf. Varices without reflux in the proximal calf. Left: No venous insufficiency. Perforators and varices without reflux. Electronically signed by: William Byrd MD 11/20/2024 09:45 AM EDT
--- OUTSIDE RECORDS SUMMARY | 2024-11-20 08:19 | XMS_ITS | Encounter Summary ---
Author Organization [employer] Address [address] [facility] [address] [place] [address] Care Team Providers Care Addiction Social Worker Name Role Phone SelwynYessenia medina ELENA Primary Care Provider [phone] Encounter Details Date Type Department Care Team ([facility] st Contact Info) Description 03/24/2024 Orders Only [facility] MED & PEDS [address] [place], [place] [phone] ProviderDunia MD Social History Tobacco Use Types [...] Description 01/16/2025 2:30 PM EDT Office Visit [facility] MED & PEDS [address] [place], [place] [phone] Yessenia Finley FNP [address] [place] [address] documented as of this encounter Procedures Procedure [...] documented as of this encounter Care Teams Addiction Social Worker Relationship Specialty Start Date End Date Yessenia Finley FNP [address] [place] [id number] PCP - General Family Medicine 07/13/22 documented as of this encounter
--- OUTSIDE RECORDS SUMMARY | 2024-11-20 08:19 | XMS_ITS | Clinical Summary ---
Author Organization [facility] Address [address] [place] [address] Care Team Providers Care Tank Cleaning Supervisor Name Role Phone Raúl Aguilar NP Primary Care Provider [phone] Source Comments PLEASE NOTE, if this patient is a minor, it may be UNLAWFUL to discuss sensitive information that is contained in these records (such as FAMILY PLANNING, MENTAL HEALTH or SUBSTANCE ABUSE) with the minor patient's parent or other person without the patient's specific authorization.[facility] Allergies No known active allergies Medications nitrofurantoin, macrocrystal-monohy drate, (MACROBID) 100 mg capsuleIndications: Urinary tract infection, site unspecified 11/12/2016 Active phenazopyridine (PYRIDIUM) 100 mg tabletIndications:U rinary tract infection, site unspecified 11/12/2016 Active sulfamethoxazole-tr imethoprim (BACTRIM DS,SEPTRA DS) 800-160 mg tabletIndications:U rinary tract infection, site unspecified 11/15/2016 Active Active Problems Problem Noted Date Diagnosed Date Hx of mammogram 09/27/2015 Overview (09/02/2016): - [facility] in 2016 - 02/2016 L negative - [facility] 2015: R negative, L f/u in 6 months Visit for gynecologic examination 08/04/2015 Overview (08/04/2015): 2015 negative HPV Hx of cholecystectomy 04/16/2015 Overview (04/16/2015): In 2007 Immunizations Immunization Administration Dates Next Due TDAP 11/29/2016 Family History Medical History Relation Name Comments Asthma Mother Diabetes Mother Hypertension Mother Relation Name Status Comments Father Alive Mother Alive Social History Tobacco Use Types Packs/Day Years Used Date Smoking Tobacco: Never Alcohol Use Standard Drinks/Week Comments No 0 (1 standard drink = 0.6 oz pur e alcohol) Social Connections Answer Date Recorded Social Connections and Isolation 0 01/05/2019 Financial Resource Strain Answer Date R ecorded Financial Resource Strain 0 2018 Stress Answer Date Recorded Stress 0 01/05/2019 Physical Activity Answer Date Recorded Physical Activity 0 01/05/2019 Food Insecurity Answer Date Recorded Food 0 01/05/2019 Transportation Needs Answer Date Record ed Transportation 0 01/05/2019 Housing Stability Answer Date Recorded Housing 0 01/05/2019 Safety and Environment Answer Date Trey rded Safety 0 01/05/2019 Utilities Answer Date Recorded Utilities 0 01/05/2019 Employment Answer Date Recorded Employment 0 01/05/2019 Comments No Sex and Gender Information Value Date Recorded Sex Assigned at Not on file Legal Sex Female 6:23 AM PST Gender Identity Not on file Sexual Orientation Not on file Last Filed Vital Signs Vital Sign Reading Time Taken Comments Blood Pressure 104/72 11/29/2016 3:45 PM EDT Pulse 68 11/29/2016 3:45 PM EDT Temperature 36.9 C (98.5 F) 11/29/2016 3:45 PM EDT Respiratory Rate 19 11/29/2016 3:45 PM EDT Oxygen Saturation - - Inhaled Oxygen Concentration - - Weight 78.9 kg (174 lb) 11/29/2016 3:45 PM EDT Height 164.8 cm (5' 4.9 ) 07/21/2015 10:31 AM ES T Body Mass Index 29.04 07/21/2015 10:31 AM EST Plan of Treatment Not on file Insurance [employer] Care Teams Tank Cleaning Supervisor Relationship Specialty Start Date End Date Raúl Aguilar NP [address] [place] [phone] PCP - General 03/21/18
== END 2024-11-20 08:14 | disposition home or self-care (01) ==
LOC: HO.US 08:13
PROVIDERS: PCP Registered Nurse; Visit Provider Physician Assistant Surgical
DX: I83.11 Varicose veins of right lower extremity with inflammation (principal)
CPT/HCPCS: 93970

== ENCOUNTER → 2024-11-20 08:15 | Outpatient (BNV) | payer MEDICAID, SELFPAY | PROVIDERS: PCP Registered Nurse; Visit Provider Radiology Diagnostic Radiology | DX: I83.811 Varicose veins of right lower extremity with pain (principal); I83.812 Varicose veins of left lower extremity with pain; I87.2 Venous insufficiency (chronic) (peripheral) | CPT/HCPCS: 93970 ==

== ENCOUNTER 2025-02-11 13:55 | Outpatient (AMB) | payer MEDICAID, SELFPAY ==
--- NOTE | 2025-02-11 13:58 | MHC.OFFVIS ---
Vital Signs 02/11/25 14:04 Height 5 ft 3 in Weight 234 lb BMI 41.4 BP 122/74 Intake Visit Reasons: PMB Console Assembler Required: Yes Console Assembler Language: Inspector [employer] Services: Console Assembler Present (in person) Console Assembler Name: Anna BARR Information Interpreted: non-clinical & clinical Supervisor Long Goods: Supervisor Long Goods Present (Anna BARR) Accompanied by: Self / Same As Patient Allergies No Known Allergies (No Known Allergies*) Allergy (Verified 02/11/25 14:05) Post menopausal: Yes HPI Comments Details: Presenting after an episode of vaginal bleeding with no other symptoms Last EMB in 02/04, the pathology showed the following: Endometrium, biopsy: Strips of weakly proliferative endometrial glands and tubal metaplasia; negative for atypia, hyperplasia or malignancy EMB was in 08/04 showed proliferative endometrium with no evidence endometrial hyperplasia or malignancy 02/03 and 05/05 both endometrial pathology showed proliferative endometrium Last co testing in 07/06 was negative Last mammogram was in 10/05 was BI-RADS 1 Last ultrasound 04/05 showed a Posterior uterine myoma 1.2 x 1.1 x 1.2 cm. compared to 0.9 x 0.9 x 1.1 cm in 04/04 The patient was referred to 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 Female Reproductive History Menstrual Age of Menarche: 13 Review of Systems Const All systems reviewed & are unremarkable except as noted in HPI and below Physical Exam Vital Signs: Last Vital Signs BP 122/74 02/11/25 14:04 BMI result Body Mass Index 41.4 General: Yes no CVA tenderness External Female Exam: normal external appearance and normal appearance of the urethra Speculum Exam - Vagina: normal appearance of the vagina, normal palpation, no lesions and no masses Speculum Exam - Cervix: normal appearance of the cervix, normal palpation, no lesions, no masses and nontender Bimanual exam- vagina & uterus: normal bimanual exam, normal palpation, uterine size normal, normal palpation, uterine shape normal, No Cervical tenderness present and non-tender Bimanual Exam- Adnexa, other: normal adnexae Back/Spine/Pelvis Back: no CVA tenderness Office Procedures Endometrial Biopsy Details: The patient was counseled regarding the indication and benefits of endometrial sampling to rule out endometrial pathology including not limited to endometrial hyperplasia or endometrial cancer and others; The alternatives (Either do nothing vs. hysteroscopy D&C) & the risks were discussed with the patient including but not limited: pain, uterine perforation, bleeding, infection, possible injury to bladder, bowel, ureter, possible need for blood transfusion with all its possible risks. The patient verbalized understanding all questions answered and signed consent. The patient was placed into the dorsal lithotomy position; a speculum was inserted in the vagina. Using aseptic technique for the procedure, the cervix was cleansed with Betadine. The anterior lip of the cervix was grasped with a single tooth tenaculum. The uterus was sounded to 7 cm with a 4 mm Pipelle was used. Tissues samples were obtained and placed in formalin, in a patient labeled container and sent to the pathology department. At the end of the procedure, there was minimal bleeding noted The patient tolerated the procedure well and was discharged in good condition with the following instructions: Nothing in the vagina until the bleeding stops. No sex until the bleeding stops, to call if any of the following occurs: fever (>100.4), flu-like symptoms, abdominal pain, heavy bleeding, four smelling vaginal discharge. The patient was instructed to schedule a Follow up appointment in 2 weeks to discuss pathology results of the biopsy and treatment options. This note was generated with a voice recognition program. Some errors may have been overlooked during the review of this note. Sometimes these errors may affect the content or meaning of a given sentence. 96839-[id number] Biopsy Assessment & Plan Assessment & Plan (1) Postmenopausal bleeding: Comment: Recurrent Uterie myoma Code(s): N95.0 - Postmenopausal bleeding Category: Medical Plan: Discussed with the patient the differential diagnosis of post menopausal bleeding with normal pelvic exam including but not limited to, endometrial hyperplasia, cancer, polyps and other causes; Instructed the patient to schedule an ultrasound with a follow-up appointment in 2 weeks. All questions answered, the patient verbalized understanding and agreed with the plan. EMB done, see procedure note Pelvic ultrasound ordered This note was generated with a voice recognition program. Some errors may have been overlooked during the review of this note. Sometimes these errors may affect the content or meaning of a given sentence. Orders: Orders AMB Endometrial Biopsy Today N95.0 - Postmenopausal bleeding Surgical Today N95.0 - Postmenopausal bleeding CT NG by PCR Vag/Cerv Today N95.0 - Postmenopausal bleeding US pelvic and transvaginal Today N95.0 - Postmenopausal bleeding Coding Level of Care Code Est Pt Level 3 (21714) Procedure Only Diagnoses Postmenopausal bleeding N95.0 CPT Codes Endometrial Biopsy - CPT: 39230-[id number] Biopsy ([id number])
[2025-02-11 14:04] VITALS: BP 122/74; BMI 41.4
--- OUTSIDE RECORDS SUMMARY | 2025-02-11 15:10 | XMS_ITS | Encounter Summary ---
Author Organization [employer] Address [address] [place] [address] Care Team Providers Care Corporate Legal Assistant Name Role Phone SelwynYessenia medina ELENA Primary Care Provider [phone] Encounter Details Date Type Department Care Team ([facility] st Contact Info) Description 03/24/2024 Orders Only [facility] MED & PEDS [address] [place], [place] [phone] ProviderDunia MD Social History Tobacco Use Types [...] as of this encounter Plan of Treatment Not on file documented as of this encounter Procedures Procedure Name Priority Date/Time Associated Diagnosis Comments HM PAP/HPV Routine 06/14/2022 3:20 PM EST documented in this encounter Results * HM PAP/HPV (06/14/2022 3:20 PM EST) us Historical Provider HEALTH MAINTENANCE Final Result documented in this encounter Visit Diagnoses Not on filedocumented in this encounter Additional Health Concerns Assessment Noted Time PHQ-9 Depression Total Score: 2 10/03/19 1:42 PM EDT documented as of this encounter Care Teams Corporate Legal Assistant Relationship Specialty Start Date End Date Yessenia Finley FNP [address] [place] [phone] PCP - General Family Medicine 07/13/22 documented as of this encounter
--- OUTSIDE RECORDS SUMMARY | 2025-02-11 15:10 | XMS_ITS | Encounter Summary ---
Author Organization [employer] Address [address] [place] [address] 7 [place] [address] Care Team Providers Care Glazier Stained Glass Name Role Phone Sung Logan [facility] Primary Care Provider Yessenia Dobson [facility] Primary Care Provider [phone] Encounter Details Date Type Department Care Team ([facility] st Contact Info) Description 06/21/2022 Orders Only [facility] MEDICINE [address] [place] [address] Mindy Cordova, RN [address] [place] [address] Social History Tobacco Use Types Packs/Day Years Used Date Smoking Tobacco: Never Assessed Comments Unknown Sex and Gender Information Value [...] Procedure Name Priority Date/Time Associated Diagnosis Comments HIGH SENSITIVITY TROPONIN I Routine 10/15/2022 7:51 PM EDT CBC WITH AUTO DIFFERENTIAL Routine 10/15/2022 7:51 PM EDT APTT Routine 10/15/2022 7:51 PM EDT PROTHROMBIN TIME-INR Routine 10/15/2022 7:51 PM EDT COMPREHENSIVE METABOLIC PANEL Routine 10/15/2022 7:51 PM EDT HM PAP/HPV Routine 06/17/2022 12:00 AM EST documented in this encounter Results * High Sensitivity Troponin I (10/15/2022 7:51 PM EDT) TROPONIN I HIGH SENSITIVITY <2.7 <3.5 - 17.0 ng/L [facility] Comment:The Payan high sens itivity Troponin-I results should beused in conjunction with other diagnostic information suchas ECG, clinical observations and information, and patientsymptoms to aid in the diagnosis of MO. 10/15/2022 7:51 PM EDT 10/15/2022 7:54 PM EDT [facility] External Provider LAB BLO OD ORDERABLES Final Result Performing Organization Address [facility] Co de Phone Number [facility] [address] [place] [phone] * APTT (10/15/2022 7:51 PM EDT) Pathologist [facility] Partial Thromboplastin Time 35.3 26.0 - 36.4 SEC [facility] 10/15/2022 7:51 PM EDT 10/15/2022 7:54 PM EDT [facility] External Provider LAB BLO OD ORDERABLES Final Result Performing Organization Address [facility] Co de Phone Number [facility] [address] [place] [phone] * Prothrombin Time-INR (10/15/2022 7:51 PM EDT) Pathologist [facility] Prothrombin Time 11.6 10.0 - 13.1 SEC [facility] INTERNATIONAL NORM RATIO 1.0 0.9 - 1.1 [facility] Comment:INTERNATIONAL NORMAL IZED RATIO (INR) REFERENCE RANGES Reference RangeFor patients not on anticoagulant therapy: 0.9 - 1.1INR ranges for oral anticoagulanttherapy:For prevention and treatment of venous thrombosis and pulmonary embolism: 2.0 - 3.0For acute myocardial infarction with aspirin therapy: 2.0 - 3.0For acute myocardial infarction without aspirin therapy: 3.0 - 4.0For patients with mechanical prosthetic heart valves: 2.5 - 3.5 10/15/2022 7:51 PM EDT 10/15/2022 7:54 PM EDT [facility] External Provider LAB BLO OD ORDERABLES Final Result [facility] [address] [place] [phone] [phone] * (ABNORMAL) Comprehensive Metabolic Panel (10/15/2022 7:51 PM EDT) Sodium 144 135 - 145 mmol/L [facility] Potassium 3.7 3.3 - 5.1 mmol/L [facility] Chloride 106 96 - 108 mmol/L [facility] Carbon Dioxide 29 22 - 29 mmol/L [facility] Anion Gap 13 12 - 20 [facility] Urea Nitrogen (BUN) 12 9 - 16 mg/dL [facility] Creatinine, Serum 0.80 0.5 - 1.4 mg/dL [facility] Creatinine Clr Calc Pharmacy 99.3 [facility] Comment:Provided height and weight: 167.64 cm,102.2 kg.eGFR (calculated from the MDRD study equation) and eCrCl(calculated from the Cockcroft-Gault equation) are based ondifferent parameters and may not yield comparable results.If eCrCl result is absurd, please check patient'sheight/weight. Estimated Glomerular Filt Rate >60 [facility] Comment:NOTE: For -Am erican individuals, multiply the result by 1.210.Chronic Kidney Disease: Estimated GFR < 60 mL/min/1.53n8Ddkcrf Kidney Disease: Estimated GFR < 15 mL/min/1.73m2 Glucose 103 60 - 115 mg/dL [facility] Calcium 9.3 8.4 - 10.2 mg/dL [facility] Bilirubin, Total 0.3 0.0 - 1.0 mg/dL [facility] Aspartate Amino Transferase 19 5 - 31 U/L [facility] Alanine Aminotransferase 19 0 - 31 U/L [facility] Total Protein 7.4 6.5 - 8.0 g/dL [facility] Albumin Level 4.0 3.5 - 5.0 g/dL [facility] Alkaline Phosphatase 119(H) 39 - 117 U/L [facility] 10/15/2022 7:51 PM EDT 10/15/2022 7:54 PM EDT us [facility] External Provider LAB BLO OD ORDERABLES Final Result [facility] [address], [place] [phone] * (ABNORMAL) CBC auto differential (10/15/2022 7:51 PM EDT) White Blood Count 8.7 4.8 - 10.8 X10*3/uL [facility] Red Blood Count 5.02 4.20 - 5.50 X10*6/uL [facility] Hemoglobin 13.4 12.0 - 16.0 g/dl [facility] Hematocrit 41.8 37.0 - 47.0 % [facility] Mean Corpuscular Volume 83.3 80.0 - 98.0 fL [facility] Mean Corpuscular Hemoglobin 26.7(L) 27.0 - 33.0 pg [facility] Mean Corpuscular HGB Conc 32.1 31.0 - 35.0 g/dl [facility] Red Cell Distribution Width 13.2 11.0 - 16.0 % [facility] Platelet Count 231 160 - 400 X10*3/uL [facility] Mean Platelet Volume 11.1 9.4 - 12.3 fL [facility] Neutrophils Percent Auto 58.5 45 - 73 % [facility] Imm Gran Pct Auto 0.6(H) 0.0 - 0.4 % [facility] Lymphocytes Percent Auto 32.2 20 - 40 % [facility] Monocytes Percent Auto 5.2 2 - 11 % [facility] Eosinophils Percent Auto 2.9 0 - 4 % [facility] Basophils Percent Auto 0.6 0 - 2 % [facility] NRBC Pct Auto 0.0 0.0 - 0.2 /100WBC [facility] Neutrophils Absolute Auto 5.1 2.0 - 8.3 x10*3/uL [facility] Imm Gran Abs Auto 0.05(H) 0.00 - 0.03 X10*3/uL [facility] Lymphocytes Absolute Auto 2.8 1.2 - 4.9 X10*3/uL [facility] Monocytes Absolute Auto 0.5 0.1 - 1.2 X10*3/uL [facility] Eosinophils Absolute Auto 0.3 0.0 - 0.4 X10*3/uL [facility] Basophils Absolute Auto 0.1 0.0 - 0.2 X10*3/uL [facility] NRBC Abs Auto 0.000 0.0 - 0.012 X10*3/uL [facility] 10/15/2022 7:51 PM EDT 10/15/2022 7:54 PM EDT [facility] External Provider LAB BLO OD ORDERABLES Final Result Performing Organization Address [facility]/ZIP Co de Phone Number [facility] [address] [place] [phone] * Hm Pap Smear (06/17/2022 12:00 AM EST) Historical Provider MD HEALTH MAINTENANCE Final Result Performing Organization Address [facility]/ZIP Co de Phone Number [facility] [address] [place] [phone] documented in this encounter Visit Diagnoses Not on filedocumented in this encounter Care Teams Glazier Stained Glass Relationship Specialty Start Date End Date Sung Logan FNP PCP - General 04/04/22 07/12/22 Yessenia Finley FNP [address] [place] [address] PCP - General Family Medicine 07/13/22 documented as of this encounter
--- OUTSIDE RECORDS SUMMARY | 2025-02-11 15:10 | XMS_ITS | Encounter Summary ---
Author Organization [employer] Address [address] [place] [address] [address] [facility] [place] [address] Care Team Providers Care Metal Bench Patternmaker Name Role Phone Yessenia Finley Primary Care Provider [phone] Reason for Referral * Neurology (Routine) - Closed Specialty Diagnoses / Procedures Referred By Contshawna t Referred To Contact Diagnoses Carpal tunnel syndrome of left wrist Tendinitis of left hand Procedures Nerve conduction test Lachelle Berumen MD [address] [place] [address] Phone: tel: fax: [address] Phone: tel: fax: Referral ID Status Reason Start Date Expiration Date Visits Re quested Visits Authorized [id number] Closed 08/14/2024 08/14/2025 1 1 Encounter Details Date Type Department Care Team (Late st Contact Info) Description 08/14/2024 Orders Only [facility] CH[facility] MED & PEDS [address] [place] [address] Lachelle Berumen MD [address] [place] [address] Carpal tunnel syndrome of left wrist (Primary Dx); Tendinitis of left hand Social History Tobacco Use Types Packs/Day Years Used Date Smoking Tobacco: Never Passive Smoke Exposure: Never Smokeless Tobacco: Never Alcohol Use Standard Drinks/Week Comments Never 0 (1 standard drink = 0.6 oz pur e alcohol) Depression Answer Date Recorded Patient Health Questionnaire-9 Score 2 10/02/2022 Housing Stability Answer Date Recorded What is your housing situation today? I have gordon sandoval 02/18/[address] you [...] as of this encounter Plan of Treatment Scheduled Orders Name Type Priority Associated Diagnoses Orde r Schedule Nerve conduction test Neurology Routine Carpal tunnel syndrome of left wrist Tendinitis of left hand Expected: 08/14/2024 (Approximate), Expires: 08/14/2025 documented as of this encounter Visit Diagnoses Diagnosis Carpal tunnel syndrome of left wrist- Primary Tendinitis of left hand documented in this encounter Additional Health Concerns Assessment Noted Time PHQ-9 Depression Total Score: 2 10/03/19 23 1:42 PM EDT documented as of this encounter Care Teams Metal Bench Patternmaker Relationship Specialty Start Date End Date Yessenia Finley FNP [address] [place] [phone] PCP - General Family Medicine 07/13/22 documented as of this encounter
--- OUTSIDE RECORDS SUMMARY | 2025-02-11 15:10 | XMS_ITS | Clinical Summary ---
Author Organization [employer] Address [address] [place] [address] 7 [place] [address] Care Team Providers Care Ground Water Technician Name Role Phone SelwynYessenia medina ELENA Primary Care Provider [phone] Allergies No known active allergies Medications cyclobenzaprine (Flexeril) 10 MG tablet TAKE 1 TABLET BY MOUTH THREE TIMES DAILY NEEDED FOR MUSCLE SPASMS 3 Active Blood Pressure Monitor kit Check BP once daily and when symptomatic. 1 kit 3 Active atorvastatin (Lipitor) 10 MG tablet Take 1 tablet (10 mg) by mouth at bedtime. 90 tablet 3 3 Active Bisacodyl EC 5 MG EC tablet Take 10 mg by mouth at bedtime. 4 Active medroxyPROGESTER one (Provera) 10 MG tablet TAKE 1 TABLET BY MOUTH ON DAYS 15-24 OF EACH CYCLE (DAY 1 = FIRST DAY OF MENSES) 4 Active Senna-Time 8.6 MG tablet TAKE 2 TABLETS BY MOUTH EVERY DAY AT BEDTIME FOR CONSTIPATION 3 Active ketotifen (Zaditor) 0.025 % ophthalmic solutionIndicati ons:Seasonal allergies One drop to eyes bid prn allergies 5 mL 1 4 Active tetracycline 500 MG capsuleIndicatio ns:H. pylori infection One tab po four times a day for 14 days 56 capsule 4 Active omeprazole OTC (PriLOSEC OTC) 20 MG EC tabletIndication s:H. pylori infection Take 1 tab po BID for 14 days. 28 tablet 4 Active chlorthalidone (Hygroton) 25 MG tabletIndication s:Primary hypertension Take 1 tablet (25 mg) by mouth Once per day. 90 tablet 1 4 Active bacitracin-polym yxin b (Polysporin) ointment Apply topically 2 times daily. 15 g 4 Active Diclofenac Sodium (Voltaren) 1 % gel Use topical BID 100 g 3 5 Active gabapentin (Neurontin) 100 MG capsule 1 capsule at bedtime 30 capsule 5 Active Active Problems Problem Noted Date Diagnosed Date Obstructive sleep apnea 10/19/2024 Assessment & Plan (10/19/2024 11:15 AM EDT): - Diagnosed via Home Sleep Study Mar 2024 - Following with [facility] [employer] company: [facility] [place] (dme through specialist) Atherosclerosis of [place] artery of left lower e xtremity 10/19/2024 Assessment & Plan (10/19/2024 11:35 AM EDT): US BRUCE complete completed 08/03/21 demonstrated atherosclerotic plaque in left lower extremity. normal BRUCE bilat indicating no significant arterial disease. Continues on atorvastatin 10mg nightly H. pylori infection 08/19/2023 Overview (10/19/2024): H Pylori breath test positive Apr 2023 ordered through [facility] Pt only completed 3 days of initial tx Plan to repeat regimen August 2023 through PCP, check GLORIA 1 month September 2023: H Pylori positive through [facility], repeat tx Postmenopausal bleeding 10/09/2022 Overview (10/19/2024): Following with [facility] Jun 2022 consult note s/p endometrial biopsy that revealed weakly proliferative endometrium Plan for hormonal IUD and repeat EMB in 6 months Pap MILANA 1 with plan for repeat co-testing in 1 year 03/30/23: Pelvic US demonstrated a small uterine fibroid, and Nabothian cysts within the cervix Repeat EMB and diagnostic hysteroscopy, D&C and polypectomy Mar-Apr 2023. Results: Disordered proliferative endometrium; negative for atypia, hyperplasia, or malignancy Assessment & Plan (10/19/2024 11:21 AM EDT): Plan: repeat EMB Q3 months x 1 year. Restart Provera 10mg daily x day 15-24 in cycle. July 2023: EMB completed - path: superficial fragments of benign proliferative endometrium, and benign endocervical glandular epithelium; no atypia or carcinoma. Jan 2024: EMB path: strips of weakly proliferative endometrial glands and tubal metaplasia; negative for atypia, hyperplasia or malignancy Consult Mar 2024: Plan to proceed with definitive surgical tx - referred to [facility] for minimally invasive [facility] surgery. Today: pt reports she went for surgical consult and they did not recommend at this time. She has follow up scheduled with Dr. Clarke Assessment & Plan (01/03/2023 6:53 PM EDT): Following with [facility] - Dr. Clarke. Next appt Dec consult note s/p endometrial biopsy that revealed weakly proliferative endometrium Plan for hormonal IUD and repeat EMB in 6 months Pap MILANA 1 with plan for repeat co-testing in 1 year Assessment & Plan (10/09/2022 12:45 PM EDT): Following with [facility] - Dr. Clarke. Next appt Dec consult note s/p endometrial biopsy that revealed weakly proliferative endometrium Plan for hormonal IUD and repeat EMB in 6 months Pap MILANA 1 with plan for repeat co-testing in 1 year Tricompartment osteoarthritis of left knee 10/09 Assessment & Plan (09/27/2023 9:31 PM EDT): -Xray left knee Jun 2021 with the following impression: Tricompartmental osteoarthritis of the left knee. The joint degeneration is mild at the patellofemoral and lateral tibiofemoral compartments and [id number] at the medial tibiofemoral compartment. -Previously followed by [facility], interested in further eval through [facility] -Cont symptomatic management -Referral to [facility] and physical therapy placed Assessment & Plan (01/03/2023 6:55 PM EDT): -Xray left knee Jun 2021 with the following impression: Tricompartmental osteoarthritis of the left knee. The joint degeneration is mild at the patellofemoral and lateral tibiofemoral compartments and [id number] at the medial tibiofemoral compartment. -Referral to Ortho - [facility] - scheduled 01/05/23 Assessment & Plan (10/09/2022 12:49 PM EDT): -Xray left knee Jun 2021 with the following impression: Tricompartmental osteoarthritis of the left knee. The joint degeneration is mild at the patellofemoral and lateral tibiofemoral compartments and [id number] at the medial tibiofemoral compartment. -Start celebrex PRN for symptom relief. Reviewed med use and safety -Referral to Ortho - [facility] - for further eval and tx Brain aneurysm 10/02/2022 Overview (10/19/2024): 1 mm A1/A2 area aneurysm noted previously on MRA, asymptomatic Following with [facility] - Dr. Juan Sweet verapamil Assessment & Plan (10/19/2024 11:24 AM EDT): Reviewed importance of good BP control Intermittent claudication 10/02/2022 Assessment & Plan (01/03/2023 6:53 PM EDT): -Previously evaluated by vascular: US did not show significant PAD. However there was a read of artheroscleoritic plaque in the extremities on USG and would continue on atorvostatin at this time. -Pt currently prescribed atorvastatin 10mg nightly, although unclear if taking Assessment & Plan (10/09/2022 12:36 PM EDT): -Previously evaluated by vascular: US did not show significant PAD. However there was a read of artheroscleoritic plaque in the extremities on USG and would continue on atorvostatin at this time. -Pt currently prescribed atorvastatin 10mg nightly, although unclear if taking Tendinitis of left rotator cuff 07/04/2018 Primary hypertension 03/21/2018 Assessment & Plan (09/27/2023 9:33 PM EDT): BP goal < 140/90 mmHg Encouraged to monitor home BP readings Encouraged low salt diet and routine physical activity Start chlorthalidone 25mg daily, reviewed med use and SE Assessment & Plan (01/03/2023 6:55 PM EDT): BP goal < 140/90 mmHg, at goal in office BP monitor sent to pharmacy for pt to monitor BP at home BID x 2 weeks Follow up in 2 weeks for RN BP appt Encouraged low salt diet and routine physical activity ED precautions If home readings elevated, would consider addition of anti-hypertension medication such as chlorthalidone. Obesity (BMI 30.0-34.9) 03/21/2018 Plantar fasciitis 03/21/2018 Healthcare maintenance 08/04/2015 Overview (10/19/2024): Pap: Jun 2022 MILANA 1 (Due Jun 2023 at [facility]) Mammo: BIRADS 1 on 10/08/24 Colonoscopy: referral to GI September 2022. Scheduled for colonoscopy 2023 at [facility] Assessment & Plan (05/03/2023 8:00 AM EST): -Reports established with GI, upcoming plan to schedule colonoscopy Hx of cholecystectomy 04/16/2015 Overview (10/02/2022): In 2007 Resolved Problems Problem Noted Date Diagnosed Date Resolved Date COVID-19 10/02/2022 10/09/2022 Encounters Date Type Department Care Team Description 11/20/2024 Orders Only [facility] External Provider, [facility] from Last 3 Months Immunizations Immunization Administration Dates Next Due HepB-CpG 12/21/2022,11/16/2022 Influenza injectable quadriv alent IIV4 with preservative 03/21/2018 Moderna Covid-19 Vaccine 12+ 07/22/2021,09/24/19 21,08/26/2020 Tdap 02/24/2019,11/29/2016 Zoster, Recombinant 01/17/2023,11/16/2022 Family History Medical History Relation Name Comments Bone cancer Father Arthritis Mother Diabetes type II Mother Hyperlipidemia Mother Hypertension Mother Breast cancer Mother's Sister Diabetes type I Sister Relation Name Status Comments Father Mother Mother's Sister Sister Social History Tobacco Use Types Packs/Day Years Used Date Smoking Tobacco: Never Passive Smoke Exposure: Never Smokeless Tobacco: Never Tobacco Cessation:Counseling Given: Not Answered Alcohol Use Standard Drinks/Week Comments Never 0 (1 standard drink = 0.6 oz pur e alcohol) Depression Answer Date Recorded Patient Health Questionnaire-9 Score 2 10/19/2024 Patient Health Questionnaire-9 Score 2 10/19/2024 Last PHQ-9: Questionnaire Data Not on file 0 10/19/2024 Housing Stability Answer Date Recorded What is your housing situation today? I have gordon sandoval 10/10/[address] you li ve. Do you have problems with any of the following? None of the above 10/10/2024 Food Insecurity Answer Date Recorded Within the past 12 months, y ou worried that your food would run out before you got money to buy more: Never True 10/10/2024 Within the past 12 months,th e food you bought just didn't last and you didn't have enough money to get more: Never True Transportation Answer Date Recorded In the past 12 months, has l ack of transportation kept you from medical appts, meetings, work or from getting things needed for daily living? No 10/10/2024 Utilities Answer Date Recorded In the past 12 months, has t he electric, gas, oil or water company threatened to shut off services in your home? No 10/10/2024 Depression Answer Date Recorded Patient Health Questionnaire-2 Score 0 10/19/2024 Internet Access Answer Date Recorded Internet Access Q1 Yes 10/10/2024 Internet Access Q2 Not on file 10/10/2024 Comments Unknown Sex and Gender Information Value Date Recorded Sex Assigned at Female 03/13/2022 10:34 AM EDT Legal Sex Female 10:34 AM EDT Gender Identity Female 03/13/2022 10:34 AM EDT Sexual Orientation Choose not to disclose 2023 5:06 AM EDT Last Filed Vital Signs Vital Sign Reading Time Taken Comments Blood Pressure 129/74 10/17/2024 2:28 PM EDT Pulse 78 10/17/2024 2:28 PM EDT Temperature 36.6 C (97.8 F) 10/17/2024 2:28 PM EDT Respiratory Rate 19 10/17/2024 2:28 PM EDT Oxygen Saturation 98% 10/17/2024 2:28 PM EDT Inhaled Oxygen Concentration - - Weight 101 kg (223 lb) 10/17/2024 2:28 PM EDT Height 163 cm (5' 4.17 ) 10/17/2024 2:28 PM EDT Body Mass Index 38.08 10/17/2024 2:28 PM EDT Plan of Treatment Health Maintenance Due Date Last Done Comments CT Colonography 1970 Colonoscopy 1970 Colorectal Cancer Screening 1970 FIT DNA/Cologuard 1970 FIT 1970 FOBT 1970 HIV Screening 1970 Sigmoidoscopy 1970 Hepatitis C Screening 1988 Pneumococcal Vaccine: 50+ Years (1 of 1 - PCV) 2020 Cervical Cancer Screening 06/17/2024 HPV/Cotest 06/17/2024 11/16/2021, 09/19/2018 Pap Smear 06/17/2024 06/17/2022, 02/0 05/2022, 11/16/2021 COVID-19 Vaccine ( season) 2025 07/22/2021, 09/23/2020, 08/26/2020 Influenza Vaccine (#1) 2025 03/21/2018 Mammogram 10/08/2025 10/08/2024, 08/12, 08/28/2023, Additional history exists SDOH Screening 10/10/2025 10/10/2024 Alcohol/Substance Use Screening 10/17/2025 10/17/2024 Tobacco Screening 10/17/2025 10/17/2024 Depression Screening 10/19/2025 10/19/2024, 10/20/19 25 Disability Screening 10/19/2025 10/19/2024 Lipid Panel 08/28/2028 08/29/2023, 07/01/2021 DTaP/Tdap/Td Vaccines (3 - Td or Tdap) 02/24/2029 02/24/2019, 11/29/2016 RSV Patients and Patients Aged 60 years or older (1 - 1-dose 75+ series) 2045 Hepatitis B Vaccines Completed 12/21/2022, 11/17/19 Zoster Vaccines Completed 01/17/2023, 11/16/2022 HIB Vaccines Aged Out No longer eligi ble based on patient's age to complete this topic HPV Vaccines Aged Out No longer eligi ble based on patient's age to complete this topic Hepatitis A Vaccines Aged Out No long er eligible based on patient's age to complete this topic IPV Vaccines Aged Out No longer eligi ble based on patient's age to complete this topic Meningococcal B Vaccine Aged Out No l onger eligible based on patient's age to complete this topic Meningococcal Vaccine Aged Out No kelsey radha eligible based on patient's age to complete this topic RSV under 20 months Aged Out No longe r eligible based on patient's age to complete this topic Rotavirus Vaccines Aged Out No longer eligible based on patient's age to complete this topic Procedures Procedure Name Priority Date/Time Associated Diagnosis Comments VAS US LOWER EXTREMITY VENOUS DUPLEX BILATERAL Routine 11/20/2024 8:36 AM EDT BI MAMMOGRAM SCREENING TOMOSYNTHESIS BILATERAL Routine 10/08/2024 12:45 PM EDT LIPID PANEL, STANDARD Routine 08/29/2023 8:37 AM EDT Healthcare maintenance HM PAP/HPV Routine 06/17/2022 12:00 AM EST THINPREP IMAGING PAP AND HPV MRNA E6/E7, WITH CT/NG, TRICHOMONAS Routine 11/16/2021 3:18 PM EDT from Last 3 Months or Most Recently Relevant to Health Maintenance Results * VASC US Lower Extremity Venous Duplex Bilateral (11/20/2024 8:36 AM EDT) 11/20/2024 8:36 AM EDT Narrative [facility] - 11/20/2024 9:48 AM EDT [address] [address] Ultrasound Report Signed Patient: Tawana Daniel MR#: [id number] : 1970 Acct:[id number] Age/Sex: 54 / F ADM Date: 11/20/24 Loc: . Attending Dr: Bita Glover PA-C Ordering Physician: Bita Glover PA-C Date of Service: 11/20/24 Procedure(s): US venous duplex LE BI Accession Number(s): [id number] cc: Bita Glover PA-C; Yessenia Finley EXAMINATION: US LOWER EXTREMITY VENOUS (REFLUX EXAM), BILATERAL CLINICAL INFORMATION: Varices. COMPARISON: February 14, 2022. Correlated to prior DVT ultrasound dated April 17, 2022. TECHNIQUE: Color flow triplex imaging and compression Doppler was performed to evaluate both the deep and the superficial systems bilaterally. To evaluate the superficial system, the examination was performed in the upright position. Color-flow Doppler ultrasound and compression ultrasound were utilized. In addition, maneuvers were utilized to demonstrate reflux. FINDINGS: 1. DEEP VENOUS ULTRASOUND OF THE RIGHT LOWER EXTREMITY: Common Femoral Vein: Compressible, normal respiratory variation and augmented flow. Femoral Vein: Compressible, normal color flow and augmentation. Popliteal Vein: Compressible, normal augmentation. Deep Reflux: There is no evidence of reflux in the deep system in either the common femoral vein, superficial femoral or the popliteal vein. There is no evidence of a Jara's cyst. 2. SUPERFICIAL ULTRASOUND WITH DOPPLER OF RIGHT LOWER EXTREMITY: GREAT SAPHENOUS VEIN: Saphenofemoral Junction: 0.6 cm; Reflux: 0 ms Proximal Thigh: 0.5 cm; Reflux: 0 ms Mid Thigh: 0.3 cm; Reflux: 0 ms Distal Thigh: 0.3 cm; Reflux: 0 ms At Knee: 0.3 cm; Reflux: 2296 ms Proximal Calf: 0.5 cm; Reflux: 2304 ms Mid Calf: 0.2 cm; Reflux: 0 ms Distal Calf: 0.3 cm; Reflux: 0 ms DUPLICATED MEDIAL GREAT SAPHENOUS VEIN: Diameter: None imaged Reflux: NA DUPLICATED LATERAL GREAT SAPHENOUS VEIN: Diameter: 0.2-0.4 cm. Reflux: NA SMALL SAPHENOUS VEIN: Saphenopopliteal Junction: 0.8 cm; Reflux: 0 ms Proximal: 0.3 cm; Reflux: 0 ms Distal: 0.2 cm; Reflux: 0 ms VEIN OF GIACOMINI: Size: NA Reflux: NA PERFORATORS: Location: Proximal calf. Size: 0.4 cm. Reflux: 2224 ms. VARICOSITIES: Location: Proximal calf. Size: 0.3 cm. Reflux: NA 3. DEEP VENOUS ULTRASOUND OF THE LEFT LOWER EXTREMITY: Common Femoral Vein: Compressible, normal respiratory variation and augmented flow. Femoral Vein: Compressible, normal color flow and augmentation. Popliteal Vein: Compressible, normal augmentation. Deep Reflux: There is no evidence of reflux in the deep system in either the common femoral vein, superficial femoral or the popliteal vein. There is no evidence of a Jara's cyst. 4. SUPERFICIAL ULTRASOUND WITH DOPPLER OF LEFT LOWER EXTREMITY: GREAT SAPHENOUS VEIN: Saphenofemoral Junction: 1.1 cm; Reflux: 0 ms Proximal Thigh: 0.4 cm; Reflux: 0 ms Mid Thigh: 0.5 cm; Reflux: 0 ms Distal Thigh: 0.3 cm; Reflux: 0 ms At Knee: 0.3 cm; Reflux: 0 ms Proximal Calf: 0.4 cm; Reflux: 0 ms Mid Calf: 0.2 cm; Reflux: 0 ms Distal Calf: 0.2 cm; Reflux: 0 ms DUPLICATED MEDIAL GREAT SAPHENOUS VEIN: Diameter: None imaged Reflux: NA DUPLICATED LATERAL GREAT SAPHENOUS VEIN: Diameter: 0.3 cm. Reflux: NA SMALL SAPHENOUS VEIN: Saphenopopliteal Junction: 0.3 cm; Reflux: 0 ms Proximal: 0.2 cm; Reflux: 0 ms Distal: 0.2 cm; Reflux: 0 ms VEIN OF GIACOMINI: Size: NA Reflux: NA PERFORATORS: Location: Mid calf. Size: 0.3 cm. Reflux: NA VARICOSITIES: Location: Small saphenous vein proximal segment. Size: 0.3 cm. Reflux: NA US/US venous duplex LE BI IMPRESSION: Right: Venous insufficiency, great saphenous vein from the knee to below the knee. Perforators with reflux in the proximal calf. Varices without reflux in the proximal calf. Left: No venous insufficiency. Perforators and varices without reflux. Electronically signed by: William Byrd MD 11/20/2024 09:45 AM EDT Dictated By: William Pendleton MD Signed By: <Electronically signed by William Fisher MD in OV> 11/20/24 0945 DD/ 0836 TD/TT: 11/20/24 0910 Hot Billet Shear Operator: Procedure Note Nasirter, Image - 11/20/[address] [address] Ultrasound Report Signed Patient: Tawana Daniel MMR#: [id number] : 1970Acct:[id number] Age/Sex: 54 / FADM Date: 11/20/24 Loc: HO.US Attending Dr: Bita Glover PA-C Ordering Physician: Bita Glover PA-C Date of Service: 11/20/24 Procedure(s): US venous duplex LE BI Accession Number(s): [id number] cc: Bita Glover PA-C; Yessenia Finley EXAMINATION: US LOWER EXTREMITY VENOUS (REFLUX EXAM), BILATERAL CLINICAL INFORMATION: Varices. COMPARISON: February 14, 2022. Correlated to prior DVT ultrasound dated April 17, 2022. TECHNIQUE: Color flow triplex imaging and compression Doppler was performed to evaluate both the deep and the superficial systems bilaterally. To evaluate the superficial system, the examination was performed in the upright position. Color-flow Doppler ultrasound and compression ultrasound were utilized. In addition, maneuvers were utilized to demonstrate reflux. FINDINGS: 1. DEEP VENOUS ULTRASOUND OF THE RIGHT LOWER EXTREMITY: Common Femoral Vein: Compressible, normal respiratory variation and augmented flow. Femoral Vein: Compressible, normal color flow and augmentation. Popliteal Vein: Compressible, normal augmentation. Deep Reflux: There is no evidence of reflux in the deep system in either the common femoral vein, superficial femoral or the popliteal vein. There is no evidence of a Jara's cyst. 2. SUPERFICIAL ULTRASOUND WITH DOPPLER OF RIGHT LOWER EXTREMITY: GREAT SAPHENOUS VEIN: Saphenofemoral Junction: 0.6 cm; Reflux: 0 ms Proximal Thigh: 0.5 cm; Reflux: 0 ms Mid Thigh: 0.3 cm; Reflux: 0 ms Distal Thigh: 0.3 cm; Reflux: 0 ms At Knee: 0.3 cm; Reflux: 2296 ms Proximal Calf: 0.5 cm; Reflux: 2304 ms Mid Calf: 0.2 cm; Reflux: 0 ms Distal Calf: 0.3 cm; Reflux: 0 ms DUPLICATED MEDIAL GREAT SAPHENOUS VEIN: Diameter: None imaged Reflux: NA DUPLICATED LATERAL GREAT SAPHENOUS VEIN: Diameter: 0.2-0.4 cm. Reflux: NA SMALL SAPHENOUS VEIN: Saphenopopliteal Junction: 0.8 cm; Reflux: 0 ms Proximal: 0.3 cm; Reflux: 0 ms Distal: 0.2 cm; Reflux: 0 ms VEIN OF GIACOMINI: Size: NA Reflux: NA PERFORATORS: Location: Proximal calf. Size: 0.4 cm. Reflux: 2224 ms. VARICOSITIES: Location: Proximal calf. Size: 0.3 cm. Reflux: NA 3. DEEP VENOUS ULTRASOUND OF THE LEFT LOWER EXTREMITY: Common Femoral Vein: Compressible, normal respiratory variation and augmented flow. Femoral Vein: Compressible, normal color flow and augmentation. Popliteal Vein: Compressible, normal augmentation. Deep Reflux: There is no evidence of reflux in the deep system in either the common femoral vein, superficial femoral or the popliteal vein. There is no evidence of a Jara's cyst. 4. SUPERFICIAL ULTRASOUND WITH DOPPLER OF LEFT LOWER EXTREMITY: GREAT SAPHENOUS VEIN: Saphenofemoral Junction: 1.1 cm; Reflux: 0 ms Proximal Thigh: 0.4 cm; Reflux: 0 ms Mid Thigh: 0.5 cm; Reflux: 0 ms Distal Thigh: 0.3 cm; Reflux: 0 ms At Knee: 0.3 cm; Reflux: 0 ms Proximal Calf: 0.4 cm; Reflux: 0 ms Mid Calf: 0.2 cm; Reflux: 0 ms Distal Calf: 0.2 cm; Reflux: 0 ms DUPLICATED MEDIAL GREAT SAPHENOUS VEIN: Diameter: None imaged Reflux: NA DUPLICATED LATERAL GREAT SAPHENOUS VEIN: Diameter: 0.3 cm. Reflux: NA SMALL SAPHENOUS VEIN: Saphenopopliteal Junction: 0.3 cm; Reflux: 0 ms Proximal: 0.2 cm; Reflux: 0 ms Distal: 0.2 cm; Reflux: 0 ms VEIN OF GIACOMINI: Size: NA Reflux: NA PERFORATORS: Location: Mid calf. Size: 0.3 cm. Reflux: NA VARICOSITIES: Location: Small saphenous vein proximal segment. Size: 0.3 cm. Reflux: NA US/US venous duplex LE BI IMPRESSION: Right: Venous insufficiency, great saphenous vein from the knee to below the knee. Perforators with reflux in the proximal calf. Varices without reflux in the proximal calf. Left: No venous insufficiency. Perforators and varices without reflux. Electronically signed by: William Byrd MD 11/20/2024 09:45 AM EDT RP Dictated By: William Pendleton MD Signed By: <Electronically signed by William Fisher MDin OV> 11/20/2445 DD/ 5 TD/TT: 11/20/24909 Hot Billet Shear Operator: [facility] External Provider CV VASC ULAR PROCEDURES Edited Result - Final [facility] [address] [place] [id number] * BI Mammogram Screening Tomosynthesis Bilateral (10/08/2024 12:45 PM EDT) Anatomical Region Laterality Modality Breast Bilateral Mammography 10/08/2024 12:4 5 PM EDT Narrative 10/13/2024 4:34 PM EDT [address] [place] [address] Mammography Report Signed Patient: Tawana Daniel MR#: [id number] : 1970 Acct:[id number] Age/Sex: 54 / F ADM Date: 10/08/24 Loc: HO.MAMMO Attending Dr: Yessenia Finley MANAGER NEWS Ordering Physician: Yessenia Finley Results: 1Negat adrián Date of Service: 10/08/24 Follow Up: 1 Year From Orig inal Mammogram Procedure(s): MM tomosynthesis screening BI Accession Number(s): [id number] cc: Yessenia Finley MANAGER NEWS EXAMINATION: MM SCREENING DIGITAL BREAST TOMOSYNTHESIS, BILATERAL CLINICAL INFORMATION: Screening. Asymptomatic. COMPARISON: Mammography: Comparison is made with available priors TECHNIQUE: Digital breast mammography with tomosynthesis is performed in both the craniocaudal and mediolateral oblique views along with computer-aided detection (CAD). FINDINGS: There are scattered areas of fibroglandular density (ACR BI-RADS breast composition Category b). There are no significant masses, abnormal calcifications, or other abnormalities. MM/MM tomosynthesis screening BI IMPRESSION: No mammographic evidence of malignancy. ASSESSMENT: BI-RADS BI-RADS 1 - Negative RECOMMENDATION: Routine annual mammography screening. 1 year F/U This examination should not preclude the clinical evaluation of a suspicious palpable abnormality. This patient's information was entered into a reminder system with a target due date for their next mammogram. Electronically signed by: Zulema Brewer DO 10/13/2024 04:31 PM EDT RP Dictated By: Zulema Brewer DO Signed By: <Electronically signed by Zulema Brewer DO in OV> 10/13/24 1631 DD/ 1245 TD/TT: 10/08/24 1300 Hot Billet Shear Operator: Procedure Note Donotuseinterpreter, Image - 10/13/2024 [facility] [address] [place] [address] Mammography Report Signed Patient: Tawana Daniel [facility]#: [id number] : 1970Acct:[id number] Age/Sex: 54 / FADM Date: 10/08/24 Loc: HO.MAMMO Attending Dr: Yessenia Finley MANAGER NEWS Ordering Physician: Yessenia FinleyPResults: 1Negat adrián Date of Service: 10/08/24Follow Up: 1 Year From [facility] Mammogram Procedure(s): MM tomosynthesis screening BI Accession Number(s): [id number] cc: Yessenia Finley MANAGER NEWS EXAMINATION: MM SCREENING DIGITAL BREAST TOMOSYNTHESIS, BILATERAL CLINICAL INFORMATION: Screening. Asymptomatic. COMPARISON: Mammography: Comparison is made with available priors TECHNIQUE: Digital breast mammography with tomosynthesis is performed in both the craniocaudal and mediolateral oblique views along with computer-aided detection (CAD). FINDINGS: There are scattered areas of fibroglandular density (ACR BI-RADS breast composition Category b). There are no significant masses, abnormal calcifications, or other abnormalities. MM/MM tomosynthesis screening BI IMPRESSION: No mammographic evidence of malignancy. ASSESSMENT: BI-RADS BI-RADS 1 - Negative RECOMMENDATION: Routine annual mammography screening. 1 year F/U This examination should not preclude the clinical evaluation of a suspicious palpable abnormality. This patient's information was entered into a reminder system with a target due date for their next mammogram. Electronically signed by: Zulema Brewer DO 10/13/2024 04:31 PM EDT Dictated By: Zulema Brewer DO Signed By: <Electronically signed by Zulema Brewer DO in OV> 10/13/24 1631 DD/ 1245 TD/TT: 10/08/24 1300 Hot Billet Shear Operator: us Yessenia Finley MANAGER NEWS IMG BI PROCEDURES Edited Resul t - Final * (ABNORMAL) Lipid Panel, Standard (08/29/2023 8:37 AM EDT) Triglycerides 74 <150 mg/dL [facility] Comment:Desirable Triglyceri de: less than 150 mg/dLBorderline High Triglyceride 150-199 mg/dLHigh Triglyceride: 200-499 mg/dLVery High Triglyceride: greater than or equal to 5OO mg/dL Cholesterol 176 <200 mg/dL [facility] Comment:Desirable Cholestero l: less than 200 mg/dLBorderline High Cholesterol: 200-239 mg/dLHigh Cholesterol: greater than 239 mg/dL LDL Cholesterol Calculated 122(H) <100 mg/dL [facility] Comment:Desirable LDL: less than 100 mg/dLNear Optimal/Above Optimal LDL: 110- 129 mg/dLBorderline High LDL: 130-159 mg/dLHigh LDL: 160-189 mg/dLVery High LDL: greater than or equal to 190 mg/dL HDL Cholesterol 40(L) >40 mg/dL [facility] Comment:Desirable HDL: great er than 40 mg/dL Note: This HDL assay may give artificially low results in patients with liver disease. Blood Venous blood specimen / Unknown 08/29/2023 8:37 AM EDT 08/29/2023 11:23 AM EDT us Yessenia Finley MANAGER NEWS LAB BLOOD ORDERABLES Final Res ult Performing Organization Address [facility]/ZIP Co de Phone Number [facility] [address] [place] [address] [phone] * Hm Pap Smear (06/17/2022 12:00 AM EST) us Historical Provider MD HEALTH MAINTENANCE Final Result Performing Organization Address [facility] Co de Phone Number [facility] [address] [place] [address] [phone] * THINPREP TIS PAP AND HPV mRNA E6/E7, CT/NG, TRICH (11/16/2021 3:18 PM EDT) Chlamydia trachomatis RNA, TMA, Urogenital NOT DETECTED NOT DETECTED [facility] Clinical Information: None given [facility] COMMENT SEE COMMENT [facility] Comment: The analytical performance characteristics of this assay, when used to test SurePath(TM) specimens have been determined by [facility]. The modifications have not been cleared or approved by the FDA. This assay has been validated pursuant to the CLIA regulations and is used for clinical purposes. For additional information, please refer to https://education.Spoonity/faq/LFV551 (This link is being provided for information/ educational purposes only.) COMMENT SEE COMMENT [facility] Comment: EXPLANATORY NOTE: The Pap is a screening test for cervical cancer. It is not a diagnostic test and is subject to false negative and false positive results. It is most reliable when a satisfactory sample, regularly obtained, is submitted with relevant clinical findings and history, and when the Pap result is evaluated along with historic and current clinical information. COMMENT: This Pap test has been evaluated with computer assisted technology. [facility] Hod Carrier: SEE COMMENT [facility] Comment: GSG, CT(ASCP) CT screening location: [place] [address] HPV nRNA E6/E7 Not Detected Not Detected [facility] Comment: Methodology: Facilities Operator-Mediated Amplification This assay detects E6/E7 viral messenger RNA (mRNA) from 14 high-risk HPV types (16,18,31,33,35,39,45,51,52,56,58,59,66,68). Cervical sources are required for HPV testing. If a vaginal source from a patient who has had a total hysterectomy with removal of cervix was submitted, please contact the testing laboratory for alternative testing options. For additional information, please refer to http://ENDYMION.Spoonity/faq/HXQ084g7 (This link if provided for information/ educational purposes only.) Interpretation/Re sult: Negative for intraepithelial lesion or malignancy. [facility] LMP: NONE GIVEN [facility] Neisseria gonorrhoeae RNA, TMA, Urogenital NOT DETECTED NOT DETECTED [facility] Prev. BX: NONE GIVEN [facility] Prev. PAP: NONE GIVEN [facility] SOURCE: None given [facility] Statement Of Adequacy: SEE COMMENT [facility] Comment: Satisfactory for evaluation. Endocervical/transformation zone component present. Trichomonas vaginalis, QL, TMA, PAP Vial NOT DETECTED NOT DETECTED [facility] Comment: The analytical performance characteristics of this assay have been determined by [facility]. The modifications have not been cleared or approved by the FDA. This assay has been validated pursuant to the CLIA regulations and is used for clinical purposes. For additional information, please refer to http://ENDYMION.Spoonity/ faq/Trichomonastma (This link is being provided for information/ educational purposes only.) 11/16/2021 3:18 PM EDT us Bety Vega CNM LAB PATHOLOGY ORDERABLES Final Result [facility] [address] from Last 3 Months or Most Recently Relevant to Health Maintenance Insurance [facility] C3 Care Teams Ground Water Technician Relationship Specialty Start Date End Date Yessenia Finley FNP [address] [place] [address] [place] [address] PCP - General Family Medicine 07/13/22
--- OUTSIDE RECORDS SUMMARY | 2025-02-11 15:10 | XMS_ITS | Clinical Summary ---
Author Organization [facility] Address [address] [place] [address] Care Team Providers Care Associate Sales Name Role Phone Raúl Aguilar NP Primary Care Provider [phone] Source Comments PLEASE NOTE, if this patient [...] on file Insurance [employer] Care Teams Associate Sales Relationship Specialty Start Date End Date Raúl Aguilar NP [address] [place] [phone] PCP - General 03/21/18
== END 2025-02-11 15:03 | disposition home or self-care (01) ==
LOC: HO.HWS 13:55
PROVIDERS: PCP Registered Nurse; Visit Provider Obstetrics & Gynecology
DX: N95.0 Postmenopausal bleeding (principal)
CPT/HCPCS: 58100; 99213

== ENCOUNTER 2025-02-11 13:55 | Outpatient (REF) | payer MEDICAID, SELFPAY ==
[2025-02-12 06:12] LABS: CT PCR NOT DETECTED (Not Detect.); NG PCR NOT DETECTED (Not Detect.)
== END 2025-02-11 13:56 | disposition home or self-care (01) ==
LOC: HO.LNP 13:55
PROVIDERS: PCP Registered Nurse; Visit Provider Obstetrics & Gynecology
DX: N95.0 Postmenopausal bleeding (principal); D25.9 Leiomyoma of uterus, unspecified; Z20.2 Contact with and (suspected) exposure to infections with a predominantly sexual mode of transmission
CPT/HCPCS: 58100; 87491; 87591; 88305; 99212

== ENCOUNTER 2025-04-08 12:45 | Outpatient (REF) | payer BC, SELFPAY ==
--- NOTE | ~2025-04-08 | US_ITS ---
EXAMINATION: US PELVIS CLINICAL INFORMATION: N95.0 - Postmenopausal bleeding COMPARISON: 01/28/2023 TECHNIQUE: Ultrasound of the pelvis is performed using both transabdominal and transvaginal transducers along with Doppler. Transvaginal imaging is performed due to inadequate visualization transabdominally. FINDINGS: Uterus: The uterus is anteverted and measures 7.0 x 4.0 x 4.8 cm. The double wall endometrial thickness is 3 mm. Heterogeneous hypoechoic region in the right upper uterine body near the isthmus measuring 1.3 x 0.6 x 1.1 cm consistent with leiomyoma. Not seen previously. Second leiomyoma in the uterine fundus measures 2.1 x 1.5 x 2.2 cm, previously 1.2 x 1.1 x 1.2 cm. Coarse calcifications are present along the endometrial stripe in the mid to lower uterine body. On prior, there are coarse calcifications in the region of the cervix. It is uncertain if the 2 areas of calcification are related. Adnexa: Both ovaries are visualized. There is normal color flow to the adnexa. There is no ovarian torsion. There is no pelvic ascites or fluid collection. Right ovary: Not seen Left ovary is not well demonstrated and measures 2.0 x 1.2 x 1.7 cm. US/US pelvic and transvaginal IMPRESSION: Suspected endometrial atrophy. The endometrium measures 3 mm in thickness. Nonspecific coarse calcifications are present along the endometrial stripe in the mid to lower uterus. 2 small uterine leiomyomas are present. The fundal leiomyoma has increased in size from 1.2 cm long axis, and now 2.2 cm. Electronically signed by: Bravo Dennis MD 04/08/2025 02:09 PM KATE BRANCH
--- OUTSIDE RECORDS SUMMARY | 2025-04-08 15:45 | XMS_ITS | Encounter Summary ---
Author Organization [facility] [employer] Address [address] [place] [address] [address] [place] [address] Care Team Providers Care Wad Blanking Press Adjuster Name Role Phone Yessenia Finley Primary Care Provider [phone] Reason for Referral * Neurology (Routine) - Closed Specialty Diagnoses / Procedures Referred By Sarina alejandra Referred To Contact Diagnoses Carpal tunnel syndrome of left wrist Tendinitis of left hand Procedures Nerve conduction test Lachelle Berumen MD [address] [place] [address] Phone: tel: fax: [address] [phone] Phone: tel: fax: Referral ID Status Reason Start Date Expiration Date Visits Re quested Visits Authorized [id number] Closed 08/14/2024 08/14/2025 1 1 Encounter Details Date Type Department Care Team (Late st Contact Info) Description 08/14/2024 Orders Only [facility] [address], [place] [phone] Lachelle Berumen MD [address] [place] [address] Carpal tunnel syndrome of left wrist (Primary [...] documented as of this encounter Care Teams Wad Blanking Press Adjuster Relationship Specialty Start Date End Date Yessenia Finley FNP [address] [place] [phone] PCP - General Family Medicine 07/13/22 documented as of this encounter
--- OUTSIDE RECORDS SUMMARY | 2025-04-08 15:45 | XMS_ITS | Encounter Summary ---
Author Organization [facility] Address [address] [facility] [address] [place] [address] Care Team Providers Care Wash Oil Pump Operator Name Role Phone Yessenia Finley ELENA Primary Care Provider [phone] Encounter Details Date Type Department Care Team (Late st Contact Info) Description 04/08/2025 Orders Only [facility] External Provider, [facility] Social History Tobacco Use Types Packs/Day Years [...] Procedure Name Priority Date/Time Associated Diagnosis Comments US PELVIS TRANSVAGINAL Routine 04/08/2025 1:01 PM EST documented in this encounter Results * US Pelvis Transvaginal (04/08/2025 1:01 PM EST) Anatomical Region Laterality Modality Pelvis Ultrasound 04/08/2025 1:01 PM EST Narrative 04/08/2025 2:11 PM EST [place] [address] Ultrasound Report Signed Patient: Tawana Daniel MR#: [id number] : 1970 Acct:[id number] Age/Sex: 54 / F ADM Date: 04/08/25 Loc: HO.US Attending Dr: Junito Clarke MD Ordering Physician: Junito Clarke MD Date of Service: 04/08/25 Procedure(s): US pelvic and transvaginal Accession Number(s): [id number] cc: Yessenia Finley; Junito Clarke MD Reason for Exam: N95.0 - Postmenopausal bleeding EXAMINATION: US PELVIS CLINICAL INFORMATION: N95.0 - Postmenopausal bleeding COMPARISON: 01/28/2023 TECHNIQUE: Ultrasound of the pelvis is performed using both transabdominal and transvaginal transducers along with Doppler. Transvaginal imaging is performed due to inadequate visualization transabdominally. FINDINGS: Uterus: The uterus is anteverted and measures 7.0 x 4.0 x 4.8 cm. The double wall endometrial thickness is 3 mm. Heterogeneous hypoechoic region in the right upper uterine body near the isthmus measuring 1.3 x 0.6 x 1.1 cm consistent with leiomyoma. Not seen previously. Second leiomyoma in the uterine fundus measures 2.1 x 1.5 x 2.2 cm, previously 1.2 x 1.1 x 1.2 cm. Coarse calcifications are present along the endometrial stripe in the mid to lower uterine body. On prior, there are coarse calcifications in the region of the cervix. It is uncertain if the 2 areas of calcification are related. Adnexa: Both ovaries are visualized. There is normal color flow to the adnexa. There is no ovarian torsion. There is no pelvic ascites or fluid collection. Right ovary: Not seen Left ovary is not well demonstrated and measures 2.0 x 1.2 x 1.7 cm. US/US pelvic and transvaginal IMPRESSION: Suspected endometrial atrophy. The endometrium measures 3 mm in thickness. Nonspecific coarse calcifications are present along the endometrial stripe in the mid to lower uterus. 2 small uterine leiomyomas are present. The fundal leiomyoma has increased in size from 1.2 cm long axis, and now 2.2 cm. Electronically signed by: Bravo Dennis MD 04/08/2025 02:09 PM [facility] Dictated By: Bravo Dennis MD Signed By: <Electronically signed by Bravo Dennis MD in OV> 04/08/25 1409 DD/ 1301 TD/TT: 04/08/25 1325 Administrator Pesticide: Procedure Note Donotuseinterpreter, Image - 04/08/[address] [address] Ultrasound Report Signed Patient: Tawana Daniel [facility]#: [id number] : 1970Acct:[id number] Age/Sex: 54 / FADM Date: 04/08/25 Loc: HO.US Attending Dr: Junito Clarke MD Ordering Physician: Junito Clarke MD Date of Service: 04/08/25 Procedure(s): US pelvic and transvaginal Accession Number(s): [id number] cc: Yessenia Finley; Junito Clarke MD Reason for Exam: N95.0 - Postmenopausal bleeding EXAMINATION: US PELVIS CLINICAL INFORMATION: N95.0 - Postmenopausal bleeding COMPARISON: 01/28/2023 TECHNIQUE: Ultrasound of the pelvis is performed using both transabdominal and transvaginal transducers along with Doppler. Transvaginal imaging is performed due to inadequate visualization transabdominally. FINDINGS: Uterus: The uterus is anteverted and measures 7.0 x 4.0 x 4.8 cm. The double wall endometrial thickness is 3 mm. Heterogeneous hypoechoic region in the right upper uterine body near the isthmus measuring 1.3 x 0.6 x 1.1 cm consistent with leiomyoma. Not seen previously. Second leiomyoma in the uterine fundus measures 2.1 x 1.5 x 2.2 cm, previously 1.2 x 1.1 x 1.2 cm. Coarse calcifications are present along the endometrial stripe in the mid to lower uterine body. On prior, there are coarse calcifications in the region of the cervix. It is uncertain if the 2 areas of calcification are related. Adnexa: Both ovaries are visualized. There is normal color flow to the adnexa. There is no ovarian torsion. There is no pelvic ascites or fluid collection. Right ovary: Not seen Left ovary is not well demonstrated and measures 2.0 x 1.2 x 1.7 cm. US/US pelvic and transvaginal IMPRESSION: Suspected endometrial atrophy. The endometrium measures 3 mm in thickness. Nonspecific coarse calcifications are present along the endometrial stripe in the mid to lower uterus. 2 small uterine leiomyomas are present. The fundal leiomyoma has increased in size from 1.2 cm long axis, and now 2.2 cm. Electronically signed by: Bravo Dennis MD 04/08/2025 02:09 PM [facility] Dictated By: Bravo Dennis MD Signed By: <Electronically signed by Bravo Dennis MD in OV> 04/08/25 1409 DD/ 1301 TD/TT: 04/08/25 1325 Administrator Pesticide: [facility] External Provider IMG US PROCEDURES Final Result documented in this encounter Visit Diagnoses Not on filedocumented in this encounter Additional Health Concerns Assessment Noted Time PHQ-9 Depression Total Score: 2 10/20/19 25 11:45 AM EDT documented as of this encounter Care Teams Wash Oil Pump Operator Relationship Specialty Start Date End Date Yessenia Finley FNP [address] [place] [address] PCP - General Family Medicine 07/13/22 documented as of this encounter
--- OUTSIDE RECORDS SUMMARY | 2025-04-08 15:45 | XMS_ITS | Clinical Summary ---
Author Organization [employer] Address [address] [place] [address] 7 [place] [address] Care Team Providers Care Web Development Consultant Name Role Phone SelwynYessenia medina ELENA Primary Care Provider [phone] Allergies No known active allergies Medications cyclobenzaprine [...] Sleep Study Mar 2024 - Following with [facility] Neurology [employer] company: [facility] [place] (dme through specialist) Atherosclerosis of [place] artery of left lower e xtremity 10/19/2024 Assessment & Plan (10/19/2024 11:35 AM EDT): US BRUCE complete completed 08/03/21 demonstrated atherosclerotic plaque in left lower extremity. normal BRUCE bilat indicating no significant arterial disease. Continues on atorvastatin 10mg nightly H. pylori infection 08/19/2023 Overview (10/19/2024): H Pylori breath test positive Apr 2023 ordered through [facility] Pt only completed 3 days of initial tx Plan to repeat regimen August 2023 through PCP, check GLORIA 1 month September 2023: H Pylori positive through [facility], repeat tx Postmenopausal bleeding 10/09/2022 Overview (10/19/2024): Following with [facility] LEAD PASTOR Jun 2022 consult note s/p endometrial biopsy [...] with definitive surgical tx - referred to [facility] for minimally invasive LEAD PASTOR surgery. Today: pt reports she went for surgical consult and they did not recommend at this time. She has follow up scheduled with Dr. Clarke Assessment & Plan (01/03/2023 6:53 PM EDT): Following with [facility] LEAD PAST[facility] - Dr. Clarke. Next appt Dec consult note s/p endometrial biopsy that revealed weakly proliferative endometrium Plan for hormonal IUD and repeat EMB in 6 months Pap MILANA 1 with plan for repeat co-testing in 1 year Assessment & Plan (10/09/2022 12:45 PM EDT): Following with [facility] LEAD PASTOR - Dr. Clarke. Next appt Dec consult [...] the patellofemoral and lateral tibiofemoral compartments and vyny-[id number] at the medial tibiofemoral compartment. -Previously followed by ZAKI, interested in further eval through [facility] -Cont symptomatic management -Referral to [facility] and physical therapy placed Assessment & Plan (01/03/2023 6:55 PM EDT): -Xray left knee Jun 2021 with the following impression: Tricompartmental osteoarthritis of the left knee. The joint degeneration is mild at the patellofemoral and lateral tibiofemoral compartments and [id number]-[id number] at the medial tibiofemoral compartment. -Referral to Ortho - [facility] - scheduled 01/05/23 Assessment & Plan (10/09/2022 12:49 PM EDT): -Xray left knee Jun 2021 with the following impression: Tricompartmental osteoarthritis of the left knee. The joint degeneration is mild at the patellofemoral and lateral tibiofemoral compartments and bibx-[id number]-uzvqpnmj at the medial tibiofemoral compartment. -Start celebrex PRN for symptom relief. Reviewed med use and safety -Referral to Ortho - [facility] - for further eval and tx Brain aneurysm 10/02/2022 Overview (10/19/2024): 1 mm A1/A2 area aneurysm noted previously on MRA, asymptomatic Following with [facility] - Dr. Juan Sweet verapamil Assessment & [...] 2022 MILANA 1 (Due Jun 2023 at [facility] LEAD PASTOR) Mammo: BIRADS 1 on 10/08/24 Colonoscopy: referral to GI September 2022. Scheduled for colonoscopy 2023 at [facility] Assessment & Plan (05/03/2023 8:00 AM EST): -Reports established with GI, upcoming plan to schedule colonoscopy Hx of cholecystectomy 04/16/2015 Overview (10/02/2022): In 2007 Resolved Problems Problem Noted Date Diagnosed Date Resolved Date COVID-19 10/02/2022 10/09/2022 Encounters Date Type Department Care Team Description 04/08/2025 Orders Only [facility] External Provider, [facility] 02/11/2025 Orders Only GENERIC EXTERNAL DATA DEPARTMENT Provider, Generic External Data from Last 3 Months Immunizations Immunization Administration [...] Associated Diagnosis Comments US PELVIS TRANSVAGINAL Routine 1:01 PM EST HEMATOXYLIN AND EOSIN STAIN Routine 02/11/2025 2:26 PM EDT CHLAMYDIA/N. GONORRHOEAE RNA, TMA, UROGENITAL Routine 02/11/2025 1:55 PM EDT BI MAMMOGRAM SCREENING TOMOSYNTHESIS BILATERAL Routine 10/08/2024 12:45 PM EDT LIPID PANEL, STANDARD Routine 08/29/2023 8:37 AM EDT Healthcare maintenance HM PAP/HPV Routine 06/17/2022 12:00 AM EST THINPREP IMAGING PAP AND HPV MRNA E6/E7, WITH CT/NG, TRICHOMONAS Routine 11/16/2021 3:18 PM EDT from Last 3 Months or Most Recently Relevant to Health Maintenance Results * US Pelvis Transvaginal (04/08/2025 1:01 PM EST) Anatomical Region Laterality Modality Pelvis Ultrasound 04/08/2025 1:01 PM EST Narrative 04/08/2025 2:11 PM EST [address] [address] Ultrasound Report Signed Patient: Tawana Daniel MR#: [id number] : 1970 Acct:[id number] Age/Sex: 54 / F ADM Date: 04/08/25 Loc: HO.US Attending Dr: Junito Clarke MD Ordering Physician: Junito Clarke MD Date of Service: 04/08/25 Procedure(s): US pelvic and transvaginal Accession Number(s): [id number] cc: Yessenia Finley; Junito Clarke MD Reason [...] by: Bravo Dennis MD 04/08/2025 02:09 PM EST Dictated By: Bravo Dennis MD Signed By: <Electronically signed by Bravo Dennis MD in OV> 04/08/25 1409 DD/ 1301 TD/TT: 04/08/25 1325 Woodworking Machine Offbearer: Procedure Note Donotuseinterpreter, Image - 04/08/2025 [place] [address] Ultrasound Report Signed Patient: Tawana Daniel MMR#: [id number] : 1970Acct:[id number] Age/Sex: 54 / FADM Date: 04/08/25 Loc: HO.US Attending Dr: Junito Clarke MD Ordering Physician: Junito Clarke MD Date of Service: 04/08/25 Procedure(s): US pelvic and transvaginal Accession Number(s): [id number] cc: Yessenia Finley; Junito Clarke MD Reason [...] by: Bravo Dennis MD 04/08/2025 02:09 PM EST Dictated By: Bravo Dennis MD Signed By: <Electronically signed by Bravo Dennis MD in OV> 04/08/25 1409 DD/ 1301 TD/TT: 04/08/25 1325 Woodworking Machine Offbearer: us [facility] External Provider IMG US PROCEDURES Final Result * Hematoxylin and Eosin Stain (02/11/2025 2:26 PM EDT) 02/11/2025 2:26 PM EDT 02/12/2025 7:10 AM EDT [facility] - 02/16/2025 11:53 AM EDT ----- ------- Name: Chiara Tawana Ogden Age/Sex: 54/F : 1970 Unit#: [id number] Attend Dr: Junito Clarke MD Re02/11/25 Status: DEP REF Location: [facility]OBayLNP Disch: ----- ------- SPEC : [id number] RECD: 02/12/25 STATUS: SAMARA UMANA NUM: [id number] MIGUEL A: 02/11/[address] [facility] [address]: Junito Clarke MD ENTERED: 02/12/25 SP TYPE: Surgical OTHR DR: Yessenia Finley ORDERED: HE Stain/2, Gross Micro L4 Diagnosis Endometrium, biopsy: Superficial fragments of inactive endometrium with metaplastic changes and breakdown; no atypia or hyperplasia identified. Clinical History PMB Microscopic Description Microscopic sections reviewed. Material Received EMB Gross Description Received in formalin labeled EMB are fragments of red-rene soft tissue mixed with mucus and clotted blood forming an aggregate measuring 1.5 x 1.3 x 0.2 cm which is wrapped in lens paper and entirely submitted for microscopic examination, multiple pieces in cassette A. ([facility]) IHC S/NG Disclaimer NOTE: Unless otherwise stated, all tissue is formalin-fixed and paraffin-embedded. Some or all of the immunohistochemical tests reported herein may have been developed and their performance characteristics determined by [facility]. They have not been cleared or approved by the U.S. Food and Drug Administration (FDA). However, the FDA has determined that such clearance or approval is not necessary. This laboratory is certified under the Clinical Laboratory Improvement Amendments of 1988 (CLIA) as qualified to perform high complexity clinical laboratory testing. Copies To: Yessenia Finley [address] [id number] CONTINUED ON NEXT PAGE ----- ------- Name: Tawana Daniel Age/Sex: 54/F : 1970 Unit#: [id number] Attend Dr: Junito Clarke MD Re02/11/25 Status: DEP REF Location: [facility] Disch: ----- ------- SPEC : [id number] RECD: 02/12/25 STATUS: SAMARA UMANA NUM: [id number] MIGUEL A: 02/11/[address] [facility] [address]: Junito Clarke MD ENTERED: 02/12/25 SP TYPE: Surgical OTHR DR: Yessenia Finley [facility] ORDERED: SULEMA Stain/2, Gross Micro L4 Copies To: (Continued) Junito Clarke MD [facility] [address] [place] [phone] ----- ------- Signed (signature on file) Christian Padron MD 02/16/25 1153 ----- ------- END OF REPORT us Generic External Data Provider LAB BLOOD ORDERAB LES Final Result [facility] [address] [place] [address] [phone] * Chlamydia/N. Gonorrhoeae RNA, TMA, Urogenitial (02/11/2025 1:55 PM EDT) CT PCR NOT DETECTED Not Detect. [facility] Comment:A not detected test result does not exclude the possibilityof infection because test results can be affected byimproper specimen collection, concurrent antibiotic therapy,or the number of organisms in the specimen which may bebelow the sensitivity of the test. As with many diagnostictests, results from the Xpert CT/NG assay should beinterpreted in conjunction with other laboratory andclinical data available to the clinician.Xpert CT/NG performance has not been evaluated in patientsless than 14 years of age. The assay should not be used forthe evaluationof suspected sexual abuse or for other medico-legalindications. Additional testing is recommended in anycircumstance when false positive or false negative resultscould lead to adverse medical, social or psychologicalconsequences. NG PCR NOT DETECTED Not Detect. [facility] Comment:A not detected test result does not exclude the possibilityof infection because test results can be affected byimproper specimen collection, concurrent antibiotic therapy,or the number of organisms in the specimen which may bebelow the sensitivity of the test. As with many diagnostictests, results from the Xpert CT/NG assay should beinterpreted in conjunction with other laboratory andclinical data available to the clinician.Xpert CT/NG performance has not been evaluated in patientsless than 14 years of age. The assay should not be used forthe evaluationof suspected sexual abuse or for other medico-legalindications. Additional testing is recommended in anycircumstance when false positive or false negative resultscould lead to adverse medical, social or psychologicalconsequences. 02/11/2025 1:55 PM EDT 02/11/2025 3:25 PM EDT us Generic External Data Provider LAB MICROBIOLOGY - GENERAL ORDERABLES Final Result [facility] [address] [place] [address] [phone] * BI Mammogram Screening Tomosynthesis Bilateral (10/08/2024 12:45 PM EDT) Anatomical Region Laterality Modality Breast Bilateral Mammography 10/08/2024 12:4 5 PM EDT Narrative 10/13/2024 4:34 PM EDT [address] [place] [address] Mammography Report Signed Patient: Tawana Daniel MR#: [id number] : 1970 Acct:[id number] Age/Sex: 54 / F ADM Date: 10/08/24 Loc: HO.MAMMO Attending Dr: Yessenia Finley ANIMAL SERVICES OFFICER Ordering Physician: Yessenia Finley Results: 1Negat adrián Date of Service: 10/08/24 Follow Up: 1 Year From Orig ina Mammogram Procedure(s): MM tomosynthesis screening BI Accession Number(s): [id number] cc: Yessenia Finley ANIMAL SERVICES OFFICER EXAMINATION: MM SCREENING DIGITAL BREAST TOMOSYNTHESIS, BILATERAL [...] 10/13/24 1631 DD/ 1245 TD/TT: 10/08/24 1300 Woodworking Machine Offbearer: Procedure Note Donotuseinterpreter, Image - 10/13/20[facility] [address] [place] [address] Mammography Report Signed Patient: Tawana Daniel MMR#: [id number] : 1970Acct:[id number] Age/Sex: 54 / FADM Date: 10/08/24 Loc: HO.MAMMO Attending Dr: Yessenia Finley ANIMAL SERVICES OFFICER Ordering Physician: Yessenia Finley FNPResults: 1Negat adrián Date of Service: 10/08/24Follow Up: 1 Year From Orig inal Mammogram Procedure(s): MM tomosynthesis screening BI Accession Number(s): [id number] cc: Yessenia Finley ANIMAL SERVICES OFFICER EXAMINATION: MM SCREENING DIGITAL BREAST TOMOSYNTHESIS, BILATERAL [...] 10/13/24 1631 DD/ 1245 TD/TT: 10/08/24 1300 Woodworking Machine Offbearer: Yessenia PARKER IMG BI PROCEDURES Edited Resul t - Final * (ABNORMAL) Lipid Panel, Standard (08/29/2023 8:37 AM EDT) Triglycerides 74 <150 mg/dL [facility] Comment:Desirable Triglyceri de: less than 150 mg/dLBorderline High Triglyceride 150-199 mg/dLHigh Triglyceride: 200-499 mg/dLVery High Triglyceride: greater than or equal to 5OO mg/dL Cholesterol 176 <200 mg/dL [facility] Comment:Desirable Cholestero l: less than 200 mg/dLBorderline High Cholesterol: 200-239 mg/dLHigh Cholesterol: greater than 239 mg/dL LDL Cholesterol Calculated 122(H) <100 mg/dL [facility] Comment:Desirable LDL: less than 100 mg/dLNear Optimal/Above Optimal LDL: 110- 129 mg/dLBorderline High LDL: 130-159 mg/dLHigh LDL: 160-189 mg/dLVery High LDL: greater than or equal to 190 mg/dL HDL Cholesterol 40(L) >40 mg/dL [facility] Comment:Desirable HDL: great er than 40 mg/dL Note: This HDL assay may give artificially low results in patients with liver disease. Blood Venous blood specimen / Unknown 08/29/2023 8:37 AM EDT 08/29/2023 11:23 AM EDT Yessenia PARKER LAB BLOOD ORDERABLES Final Res ult [facility] [address] [place] [phone] * Hm Pap Smear (06/17/2022 12:00 AM EST) Historical Provider HEALTH MAINTENANCE Final Result [facility] [address] [place] [address] [phone] * THINPREP TIS PAP AND HPV mRNA E6/E7, CT/NG, TRICH (11/16/2021 3:18 PM EDT) Chlamydia trachomatis RNA, TMA, Urogenital NOT DETECTED NOT DETECTED [facility] Clinical Information: None given [facility] COMMENT SEE COMMENT [facility] Comment: The analytical performance characteristics of this assay, when used to test SurePath(TM) specimens have been determined by [employer]. The modifications have not been cleared or approved by the FDA. This assay has been validated pursuant to the CLIA regulations and is used for clinical purposes. For additional information, please refer to https://[employer].Chegue.lá/faq/PUZ658 (This link is being provided for information/ [...] has been evaluated with computer assisted technology. [facility] Pattern Chain Builder: SEE COMMENT [facility] Comment: GSG, CT(ASCP) CT screening location: [place] [address] HPV nRNA E6/E7 Not Detected Not Detected [facility] Comment: Methodology: Dope Heater-Mediated Amplification This assay detects E6/E7 viral messenger RNA (mRNA) from 14 high-risk HPV types (16,18,31,33,35,39,45,51,52,56,58,59,66,68). Cervical sources are required for HPV testing. If a vaginal source from a patient who has had a total hysterectomy with removal of cervix was submitted, please contact the testing laboratory for alternative testing options. For additional information, please refer to http://education.Chegue.lá/faq/BSZ127o1 (This link if provided for information/ educational [...] of this assay have been determined by [employer]. The modifications have not been cleared or approved by the FDA. This assay has been validated pursuant to the CLIA regulations and is used for clinical purposes. For additional information, please refer to http://education.Chegue.lá/ faq/Trichomonastma (This link is being provided for information/ educational purposes only.) 11/16/2021 3:18 PM EDT us Bety Vega CNM LAB PATHOLOGY ORDERABLES Final Result [facility] [address] from Last 3 Months or Most Recently Relevant to Health Maintenance Insurance [facility] C3 Care Teams Web Development Consultant Relationship Specialty Start Date End Date Yessenia Finley FNP [address] [place], [place] [address]abimael [place] [address] PCP - General Family Medicine 07/13/22
--- OUTSIDE RECORDS SUMMARY | 2025-04-08 15:45 | XMS_ITS | Encounter Summary ---
Author Organization [employer] Address [address] [facility] [address]t [place] [address] Care Team Providers Care Change Booth Attendant Name Role Phone SelwynYessenia medina ELENA Primary Care Provider [phone] Encounter Details Date Type Department Care Team ([facility] st Contact Info) Description 03/24/2024 Orders Only [facility] [address] [place], [place] [phone] ProviderDunia MD Social History Tobacco Use Types [...] documented as of this encounter Care Teams Change Booth Attendant Relationship Specialty Start Date End Date Yessenia Finley FNP [address] [place] [phone] PCP - General Family Medicine 07/13/22 documented as of this encounter
--- OUTSIDE RECORDS SUMMARY | 2025-04-08 15:45 | XMS_ITS | Encounter Summary ---
Author Organization [employer] Address [address] [place] [address] 7 [place] [address] Care Team Providers Care Poultry Farmer Name Role Phone Sung Logan [facility] Primary Care Provider Yessenia Dobson [facility] Primary Care Provider [phone] Encounter Details Date Type Department Care Team ([facility] st Contact Info) Description 06/21/2022 Orders Only [facility] [address] [place] [address] Mindy Cordova, RN [address] [place] [address] Social History Tobacco Use Types Packs/Day Years [...] HIGH SENSITIVITY <2.7 <3.5 - 17.0 ng/L [facility] Comment:The [place] high sens itivity Troponin-I results should beused in conjunction with other diagnostic information suchas ECG, clinical observations and information, and patientsymptoms to aid in the diagnosis of DC. 10/15/2022 7:51 PM EDT 10/15/2022 7:54 PM EDT [facility] External Provider LAB BLO OD ORDERABLES Final Result Performing Organization Address [facility] Co de Phone Number [facility] [address] [place] [phone] * APTT (10/15/2022 7:51 PM EDT) Pathologist [facility] Partial Thromboplastin Time 35.3 26.0 - 36.4 SEC [facility] 10/15/2022 7:51 PM EDT 10/15/2022 7:54 PM EDT [facility] External Provider LAB BLO OD ORDERABLES Final Result Performing Organization Address [facility] Co de Phone Number [facility] [address] [place] [phone] * Prothrombin Time-INR (10/15/2022 7:51 PM EDT) Pathologist [facility] Prothrombin Time 11.6 10.0 - 13.1 SEC [facility] INTERNATIONAL NORM RATIO 1.0 0.9 - 1.1 [facility] Comment:INTERNATIONAL NORMAL IZED RATIO (INR) REFERENCE [...] PM EDT 10/15/2022 7:54 PM EDT us [facility] External Provider LAB BLO OD ORDERABLES Final Result [facility] [address] [place] [address] [phone] * (ABNORMAL) Comprehensive Metabolic Panel (10/15/2022 7:51 PM EDT) Sodium 144 135 - 145 mmol/L [facility] Potassium 3.7 3.3 - 5.1 mmol/L [facility] Chloride 106 96 - 108 mmol/L [facility] Carbon Dioxide 29 22 - 29 mmol/L [facility] Anion Gap 13 12 - 20 [facility] Urea Nitrogen (BUN) 12 9 - 16 mg/dL [facility] Creatinine, Serum 0.80 0.5 - 1.4 mg/dL [facility] Creatinine Clr Calc Pharmacy 99.3 [facility] Comment:Provided height and weight: 167.64 cm,102.2 kg.eGFR (calculated from the MDRD study equation) and eCrCl(calculated from the Cockcroft-Gault equation) are based ondifferent parameters and may not yield comparable results.If eCrCl result is absurd, please check patient'sheight/weight. Estimated Glomerular Filt Rate >60 [facility] Comment:NOTE: For -Am erican individuals, multiply the result by 1.210.Chronic Kidney Disease: Estimated GFR < 60 mL/min/1.63n9Hgobsw Kidney Disease: Estimated GFR < 15 mL/min/1.73m2 Glucose 103 60 - 115 mg/dL [facility] Calcium 9.3 8.4 - 10.2 mg/dL [facility] Bilirubin, Total 0.3 0.0 - 1.0 mg/dL [facility] Aspartate Amino Transferase 19 5 - 31 U/L [facility] Alanine Aminotransferase 19 0 - 31 U/L [facility] Total Protein 7.4 6.5 - 8.0 g/dL [facility] Albumin Level 4.0 3.5 - 5.0 g/dL [facility] Alkaline Phosphatase 119(H) 39 - 117 U/L [facility] 10/15/2022 7:51 PM EDT 10/15/2022 7:54 PM EDT us [facility] External Provider LAB BLO OD ORDERABLES Final Result [facility] [address], [place] [phone] * (ABNORMAL) CBC auto differential (10/15/2022 7:51 PM EDT) White Blood Count 8.7 4.8 - 10.8 X10*3/uL [facility] Red Blood Count 5.02 4.20 - 5.50 X10*6/uL [facility] Hemoglobin 13.4 12.0 - 16.0 g/dl [facility] Hematocrit 41.8 37.0 - 47.0 % [facility] Mean Corpuscular Volume 83.3 80.0 - 98.0 fL [facility] Mean Corpuscular Hemoglobin 26.7(L) 27.0 - 33.0 pg [facility] Mean Corpuscular HGB Conc 32.1 31.0 - 35.0 g/dl [facility] Red Cell Distribution Width 13.2 11.0 - 16.0 % [facility] Platelet Count 231 160 - 400 X10*3/uL [facility] Mean Platelet Volume 11.1 9.4 - 12.3 fL [facility] Neutrophils Percent Auto 58.5 45 - 73 % [facility] Imm Gran Pct Auto 0.6(H) 0.0 - 0.4 % [facility] Lymphocytes Percent Auto 32.2 20 - 40 % [facility] Monocytes Percent Auto 5.2 2 - 11 % [facility] Eosinophils Percent Auto 2.9 0 - 4 % [facility] Basophils Percent Auto 0.6 0 - 2 % [facility] NRBC Pct Auto 0.0 0.0 - 0.2 /100WBC [facility] Neutrophils Absolute Auto 5.1 2.0 - 8.3 x10*3/uL [facility] Imm Gran Abs Auto 0.05(H) 0.00 - 0.03 X10*3/uL [facility] Lymphocytes Absolute Auto 2.8 1.2 - 4.9 X10*3/uL [facility] Monocytes Absolute Auto 0.5 0.1 - 1.2 X10*3/uL [facility] Eosinophils Absolute Auto 0.3 0.0 - 0.4 X10*3/uL [facility] Basophils Absolute Auto 0.1 0.0 - 0.2 X10*3/uL [facility] NRBC Abs Auto 0.000 0.0 - 0.012 X10*3/uL [facility] 10/15/2022 7:51 PM EDT 10/15/2022 7:54 PM EDT [facility] External Provider LAB BLO OD ORDERABLES Final Result Performing Organization Address City/[facility]/ZIP Co de Phone Number [facility] [address] [place] [address] [phone] * Hm Pap Smear (06/17/2022 12:00 AM EST) Historical Provider MD HEALTH MAINTENANCE Final Result Performing Organization Address [facility]/ZIP Co de Phone Number [facility] [address] [place] [address] [phone] documented in this encounter Visit Diagnoses Not on filedocumented in this encounter Care Teams Poultry Farmer Relationship Specialty Start Date End Date Sung Logan FNP PCP - General 04/04/22 07/12/22 Yessenia Finley FNP [address] [place] [address] PCP - General Family Medicine 07/13/22 documented as of this encounter
== END 2025-04-08 12:46 | disposition home or self-care (01) ==
LOC: HO.US 12:45
PROVIDERS: PCP Registered Nurse; Visit Provider Obstetrics & Gynecology
DX: N95.0 Postmenopausal bleeding (principal)
CPT/HCPCS: 76830; 76856

== ENCOUNTER → 2025-04-08 12:56 | Outpatient (BNV) | payer BC, SELFPAY | PROVIDERS: PCP Registered Nurse; Visit Provider Radiology Diagnostic Radiology | DX: N95.0 Postmenopausal bleeding (principal); D25.1 Intramural leiomyoma of uterus | CPT/HCPCS: 76830; 76856 ==

== ENCOUNTER 2025-04-21 13:31 | Outpatient (AMB) | payer BC, SELFPAY ==
--- NOTE | 2025-04-21 14:05 | MHC.OFFVIS ---
Vital Signs 04/21/25 14:06 Height 5 ft 3 in Weight 234 lb BMI 41.4 Intake Visit Reasons: Ultrasound follow up/EMB Foot Setter Required: Yes Foot Setter Language: Assistant Drafter Services: Foot Setter Present (in person) Foot Setter Name: Anna BARR Information Interpreted: non-clinical & clinical Accompanied by: Self / Same As Patient Allergies No Known Allergies (No Known Allergies*) Allergy (Verified 04/21/25 14:06) HPI Comments Details: Presenting for ultrasound follow-up regarding recurrentt postmenopausal bleeding. Pelvic ultrasound showed the following: Uterus: The uterus is anteverted and measures 7.0 x 4.0 x 4.8 cm. The double wall endometrial thickness is 3 mm. Heterogeneous hypoechoic region in the right upper uterine body near the isthmus measuring 1.3 x 0.6 x 1.1 cm consistent with leiomyoma. Not seen previously. Second leiomyoma in the uterine fundus measures 2.1 x 1.5 x 2.2 cm, previously 1.2 x 1.1 x 1.2 cm. Coarse calcifications are present along the endometrial stripe in the mid to lower uterine body. On prior, there are coarse calcifications in the region of the cervix. It is uncertain if the 2 areas of calcification are related. Adnexa: Both ovaries are visualized. There is normal color flow to the adnexa. There is no ovarian torsion. There is no pelvic ascites or fluid collection. Right ovary: Not seen Left ovary is not well demonstrated and measures 2.0 x 1.2 x 1.7 cm. 03/30/2023 pelvic ultrasound showed the following: Uterus: The uterus is anteverted and anteflexed. The uterus measures 7.5 x 4.2 x 5.1 cm. Nabothian cysts are seen within the cervix, some partially calcified. The double wall endometrial thickness is 1.2 mm. The uterus is smooth in contour and has normal myometrial echogenicity. Fibroids: There is 1 fibroid seen. 1. Location: Posterior body. Size: 1.2 x 1.1 x 1.2 cm. Prior: 0.9 x 0.9 x 1.1 cm. Fibroid characteristics: Hypoechoic. Adnexa: Both ovaries are visualized. There is normal color flow to the adnexa. There is no ovarian torsion. There is no pelvic ascites or fluid collection. Right ovary measures 1.7 x 1.1 x 1.1 cm, volume 1.0 mL. Left ovary measures 2.5 x 1.5 x 1.1 cm, volume 2.2 mL. 02/12/2025 EMB pathology showed the following: Endometrium, biopsy: Superficial fragments of inactive endometrium with metaplastic changes and breakdown; no atypia or hyperplasia identified The patient had multiple endometrial biopsies for recurrent postmenopausal bleeding since 02/03 in addition to hysteroscopy D&C polypectomy in 05/05 old negative for endometrial hyperplasia and/or malignancy [facility] Medical History (Updated 04/21/25 @ 14:23 by Junito Clarke MD) Dysplasia of cervix, low grade (MILANA 1) Elevated cholesterol HTN (hypertension) Brain aneurysm Surgical History Hx of dilation and curettage Hx of varicose vein stripping History of History of cholecystectomy Family History Maternal Aunt Breast CA Social History Alcohol intake: never Patient Tobacco Use Status: Never used Tobacco Current occupational status: employed 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 Discussed with the patient the sensitivity, specificity, positive and negative predictive value, of endometrial biopsy in detecting endometrial pathology including but not limited to endometrial hyperplasia, cancer and other pathology; the patient is requesting surgical management recurrent postmenopausal bleeding, will refer to [facility] for minimally invasive urogynecology physician surgery (2) Uterine myoma: Code(s): D25.9 - Leiomyoma of uterus, unspecified Category: Medical Plan: Discussed with the patient the findings on pelvic ultrasound & the risk of myosarcoma; in addition reviewed with the patient that malignancy and pre malignancy cannot be ruled out without hysterectomy for pathological evaluation ; furthermore, explained to the patient the limitation of pelvic ultrasound and endometrial biopsy in the setting. Discussed with the patient the options of treatment, the patient is interested in surgical management . Discussed with the patient the different types of hysterectomies including, vaginal, laparoscopic assisted vaginal, robotic assisted laparoscopic,& abdominal with BSO. All pros, cons, r/b of each approach were discussed the patient including evidence that morbidity is less and recovery is shorter with minimally invasive approaches to hysterectomy. Discussed with the patient the lack of availability of the robot [employer] robot and/or minimally invasive kettle hand specialist at [facility]. Will refer to [facility] minimally invasive urogynecology physician surgery. Instructed the patient to call our office back in case a referral appointment is not scheduled, missed or canceled so that we will assist on rescheduling another appointment, the patient verbalized understanding agreed with the plan. Coding Level of Care Code Est Pt Level 3 (49324) Diagnoses Postmenopausal bleeding N95.0 Uterine myoma D25.9
[2025-04-21 14:06] VITALS: BMI 41.4
== END 2025-04-21 14:34 | disposition home or self-care (01) ==
LOC: HO.HWS 13:31
PROVIDERS: PCP Registered Nurse; Visit Provider Obstetrics & Gynecology
DX: N95.0 Postmenopausal bleeding (principal); D25.9 Leiomyoma of uterus, unspecified
CPT/HCPCS: 99213